=== PATIENT | female | born 1935 | race Caucasian/White ===

== ENCOUNTER 2016-12-16 19:10 | Observation (INO) | payer OTHER ==
[2016-12-16] MEDS ORDERED: Aspirin 325 mg EC Tablets PO STA (19:37)
--- NOTE | 2016-12-16 19:41 | C.PDOC ---
History Of Present Illness 81 year old female who presents to the ER with family at bedside for a complaint of epigastric pain, chest tightness, weakness, and a tight cough for the past couple of days. per femchilo, patient is having "asthma". Patient was sent to the by PMD Dr. Iverson for evaluation, EKG done in ER shows a RBBB with a rate of [address] Iverson's office same. Patient recently arrived from [place]; as per family patient has a Hx of HTN and asthma, they report patient is complaint with HTN medication. Patient reports she has been using her inhaler 3 times a days; as per family patient has never used steroids for asthma. Denies fever, chills, vomiting, or SOB. Time Seen by Provider: 12/16/16 19:28 Chief Complaint (Nursing): Chest Pain History Per: Patient History/Exam Limitations: no limitations Onset/Duration Of Symptoms: Days Current Symptoms Are (Timing): Still Present Context: Travel (Recently arrived from [place]) Associated Symptoms: denies: Nausea, Dyspnea Modifying Factors: None Exacerbating Factors: None Alleviating Factors: None Recent travel outside of the [place]: Yes Past Medical History Reviewed: Historical Data, Nursing Documentation, Vital Signs Vital Signs: Last Vital Signs Temp 97.9 F 12/16/16 19:23 Pulse 110 H 12/16/16 23:00 Resp 18 12/16/16 23:00 BP 139/64 12/16/16 23:00 Pulse Ox 97 12/16/16 23:16 - Medical History PMH: Asthma, HTN Surgical History: No Surg Hx Family History: States: Unknown Family Hx - Social History Hx Alcohol Use: No Hx Substance Use: No - Immunization History Hx Tetanus Toxoid Vaccination: No Hx Influenza Vaccination: No Hx Pneumococcal Vaccination: No Review Of Systems Constitutional: Positive for: Weakness. Negative for: Fever, Chills Respiratory: Positive for: Cough. Negative for: Shortness of Breath Gastrointestinal: Positive for: Abdominal Pain. Negative for: Vomiting Musculoskeletal: Negative for: Back Pain Physical Exam - Physical Exam Appears: Non-toxic, No Acute Distress, Other (Appears mildly SOB but speaking in complete sentences) Skin: Normal Color, Warm, Dry Head: Atraumatic, Normacephalic Oral Mucosa: Moist Chest: Symmetrical, No Tenderness Cardiovascular: Rhythm Regular, No Murmur Respiratory: Normal Breath Sounds, No Rales, No Rhonchi, No Wheezing, Other ( Tight cough) Gastrointestinal/Abdominal: Soft, Tenderness (Mildly to epigastric) Extremity: Normal ROM, Pedal Edema (+1 pitting) Neurological/Psych: Oriented x3, Normal Speech, Normal Cognition ED Course And Treatment - Laboratory Results Result Diagrams: 12/16/16 20:07 12/16/16 20:07 ECG: Interpreted By Me, Viewed By Me ECG Rhythm: Sinus Rhythm, R BBB ECG Interpretation: No Changes From Prior Interpretation Of EC O2 Sat by Pulse Oximetry: 97 Medical Decision Making Medical Decision Making: Plan: * Labs * EKG * CXR * Aspirin Differential: Asthma vs ACS/CHF Discussed with Dr. Iverson who agrees patient can be discharged home, troponin is unremarkable, he will have her follow up in his office. On re-evaluation patient feeling much better. Disposition Discussed With : Luis Iverson Doctor Will See Patient In The: Office - Disposition Referrals: Luis Iverson MD [Staff Provider] - Disposition: HOSPITALIZED Disposition Time: 23:10 Condition: GUARDED - POA Present On Arrival: None - Clinical Impression Clinical Impression: Chest pain - Scribe Statement The provider has reviewed the documentation as recorded by the Scribe Jaya Baeza All medical record entries made by the Scribe were at my direction and personally dictated by me. I have reviewed the chart and agree that the record accurately reflects my personal performance of the history, physical exam, medical decision making, and the department course for this patient. I have also personally directed, reviewed, and agree with the discharge instructions and disposition. Decision To Admit - Pt Status Changed To: Hospital Disposition Of: Observation - . Bed Request Type: Telemetry Patient Diagnosis: Chest pain
[2016-12-16 20:14] LABS: BASO # 0.1 K/uL (0.0-0.2); BASO % 0.8 % (0.0-2.0); EOS # 0.6 K/uL (0.0-0.7); EOS % 4.9 % (0.0-4.0); HEMOGLOBIN 13.9 g/dL (11.0-16.0); LYMPH # 2.7 K/uL (1.0-4.3); LYMPH % 23.7 % (20.0-40.0); MEAN CELL VOLUME 81.9 fL (81.0-99.0); MEAN CORPUSCULAR HEMOGLOBIN 26.4 pg (27.0-31.0); MEAN CORPUSCULAR HGB CONC 32.2 g/dL (33.0-37.0); MEAN PLATELET VOLUME 7.8 fL (7.2-11.7); MONO # 0.8 K/uL (0.0-0.8); MONO % 6.9 % (0.0-10.0); NEUT # 7.1 K/uL (1.8-7.0); NEUT % 63.7 % (50.0-75.0); NRBC % 0.1 % (0.0-2.0); RBC 5.25 Mil/uL (3.80-5.20); RED CELL DISTRIBUTION WIDTH 14.1 % (11.5-14.5); WHITE BLOOD COUNT 11.2 K/uL (4.8-10.8)
[2016-12-16 20:27] LABS: ALB/GLOB RATIO 0.9 (1.0-2.1); AST/SGOT 16 U/L (14-36); BLOOD UREA NITROGEN 9 mg/dL (7-17); GFR AFRICAN-AMERICAN > 60; GFR NON-AFRICAN AMERICAN > 60
[2016-12-16 20:28] LABS: ALT/SGPT 17 U/L (9-52); CALCIUM 10.2 mg/dl (8.6-10.4); HDL CHOLESTEROL 40 mg/dL (30-70)
[2016-12-16 20:39] LABS: LDL CHOLESTEROL 179 mg/dL (0-129)
[2016-12-16 20:40] LABS: B-TYPE NATRIURETIC PEPTIDE 149 pg/mL (0-900)
[2016-12-16] MEDS: Albuterol-Ipratrop 3 mg / 0.5 (3 ml) UD IH SCH (21:54)
[2016-12-16] MEDS ORDERED: Albuterol-Ipratrop 3 mg / 0.5 (3 ml) UD ONE (22:07)
--- NOTE | 2016-12-16 23:22 | CP.PCM.HP ---
<Caroline Hamilton - Last Filed: 12/17/16 05:06> History of Present Illness - History of Present Illness History of Present Illness: Medicine Note CC: chest pain HPI: 81F with PMHx of Asthma and HTN presented to the ED with chest pain. Patient was sent to the ED by PMD Dr. Iverson for evaluation, EKG done in ER shows a RBBB with a rate of [address] Iverson's office was the same. History retrieved from the patient's daughter, since the patient does not speak french. As per daughter, mother was sitting down earlier today and started to have midsternal pressure like chest pain that lasted 10 minutes. The pain did not radiate, patient was not diaphoretic, dizzy, or experience nausea. She did not take anything for the pain. This is the first time this has happened to her. Patient is visiting from [facility] and was started on BP medications 6 months ago. Denied fever, chills, headache, chest pain, abdominal pain, n/v/d/c, or urinary symptoms. PMHx: Asthma and HTN PSHx:Denied Meds: Telmisartan and HCTZ 40/12.5mg PO daily, pregablin 75mg PO daily, Albuterol HFA PRN All: NKDA SHx: Denied tobacco, alcohol, or illicit drug use FHx: Unremarkable Present on Admission - Present on Admission Any Indicators Present on Admission: No Review of Systems - Constitutional Constitutional: absent: Daytime Sleepiness, Fever, Weakness - EENT Eyes: absent: Change in Vision, Loss of Vision Ears: absent: Dizziness Nose/Mouth/Throat: absent: Dysphagia, Neck Mass - Breasts Breasts: absent: Pain - Cardiovascular Cardiovascular: absent: Chest Pain, Chest Pain at Rest, Dyspnea, Radiating Pain , Syncope - Respiratory Respiratory: absent: Cough, Dyspnea - Gastrointestinal Gastrointestinal: absent: Abdominal Pain, Nausea, Vomiting - Genitourinary Genitourinary: absent: Dysuria, Hematuria - Musculoskeletal Musculoskeletal: absent: Back Pain - Integumentary Integumentary: absent: Wounds - Neurological Neurological: absent: Syncope, Weakness - Endocrine Endocrine: absent: Polydipsia, Polyphagia, Polyuria - Hematologic/Lymphatic Hematologic: absent: Easy Bleeding, Easy Bruising Past Patient History - Past Social History Smoking Status: Never Smoked - CARDIAC Hx Hypertension: Yes - PULMONARY Hx Asthma: Yes - PSYCHIATRIC Hx Substance Use: No - SURGICAL HISTORY Hx Surgeries: No Meds Allergies/Adverse Reactions: Allergies Allergy/AdvReac Type Severity Reaction Status Date / Time No Known Allergies Allergy Verified 12/16/16 19:26 Physical Exam - Constitutional Appears: No Acute Distress - Head Exam Head Exam: NORMAL INSPECTION, NORMOCEPHALIC - Eye Exam Eye Exam: EOMI, Normal appearance, PERRL Pupil Exam: NORMAL ACCOMODATION - ENT Exam ENT Exam: Mucous Membranes Moist, Normal Exam - Neck Exam Neck exam: Positive for: Normal Inspection - Respiratory Exam Respiratory Exam: Clear to Auscultation Bilateral, NORMAL BREATHING PATTERN. absent: Wheezes - Cardiovascular Exam Cardiovascular Exam: REGULAR RHYTHM, RRR, +S1, +S2 - GI/Abdominal Exam GI & Abdominal Exam: Normal Bowel Sounds, Soft - Extremities Exam Extremities exam: Positive for: normal inspection, pedal pulses present. Negative for: pedal edema, tenderness - Back Exam Back exam: NORMAL INSPECTION - Neurological Exam Neurological exam: Alert, CN II-XII Intact, Oriented x3 - Skin Skin Exam: Dry, Intact, Normal Color, Warm Results - Vital Signs Recent Vital Signs: Last Vital Signs Temp 97.9 F 12/16/16 19:23 Pulse 110 H 12/16/16 23:00 Resp 18 12/16/16 23:00 BP 139/64 12/16/16 23:00 Pulse Ox 97 12/16/16 23:18 - Labs Result Diagrams: 12/16/16 20:07 12/16/16 20:07 Labs: Laboratory Results - last 24 hr 12/16/16 12/16/16 20:07 20:07 WBC 11.2 H RBC 5.25 H Hgb 13.9 Hct 43.0 MCV 81.9 MCH 26.4 L MCHC 32.2 L RDW 14.1 Plt Count 395 MPV 7.8 Neut % (Auto) 63.7 Lymph % (Auto) 23.7 [place] % (Auto) 6.9 Eos % (Auto) 4.9 H Baso % (Auto) 0.8 Neut # 7.1 H Lymph # 2.7 [place] # 0.8 Eos # 0.6 Baso # 0.1 Sodium 139 Potassium 3.8 Chloride 99 Carbon Dioxide 29 Anion Gap 14 BUN 9 Creatinine 0.5 L Est GFR ( Amer) > 60 Est GFR (Non-Af Amer) > 60 Random Glucose 136 H Calcium 10.2 Total Bilirubin 0.5 AST 16 ALT 17 Alkaline Phosphatase 135 H Troponin I < 0.0120 NT-Pro-B Natriuret Pep 149 Total Protein 8.2 Albumin 4.0 Globulin 4.3 H Albumin/Globulin Ratio 0.9 L Triglycerides 216 H Cholesterol 251 H LDL Cholesterol Direct 179 H HDL Cholesterol 40 Assessment & Plan - Assessment and Plan (Free Text) Assessment: 81F with PMHx of Asthma and HTN presented to the ED with chest pain. Plan: Chest Pain r/o ACS * EKG: NSR, RBBB @ 88 * 1st YANET- negative * TSH, T3 - WNL * Hgba1c - 7.7 * F/U ROMIs, EKG, ECHO * Cardiology consulted- Dr. Avel Patel - help appreciated HLD * Tri: 216, Cholesterol: 251, LDL 179, HDL 40 * Started on Crestor 5mg PO QHS DM * Hgba1c - 7.7 * Acchuchecks HTN * HCTZ 12.5mg PO Daily * HHD Hx Asthma * Duonebs PRN Prophylactic Measures * GI PPX: Protonix 40mg PO daily * DVT PPX: SCDs, lovenox 40mg SC daily DW Joy Vazquez DO, PGY-1 <Alexandro Ramirez - Last Filed: 12/17/16 06:21> Results - Vital Signs Recent Vital Signs: Last Vital Signs Temp 97.9 F 12/16/16 19:23 Pulse 99 H 12/17/16 02:35 Resp 16 12/17/16 02:35 BP 150/80 12/17/16 01:08 Pulse Ox 97 12/17/16 02:35 - Labs Result Diagrams: 12/16/16 20:07 12/16/16 20:07 Labs: Laboratory Results - last 24 hr 12/17/16 12/17/16 12/17/16 01:10 01:10 01:10 Hemoglobin A1c 7.7 H Total Creatine Kinase CK-MB (Mass) Troponin I, Quant Total T3 1.67 TSH 3rd Generation 1.54 Urine Color Straw Urine Clarity Clear Urine pH 7.0 Ur Specific [place] 1.004 Urine Protein Negative Urine Glucose (UA) Normal Urine Ketones Negative Urine Blood Negative Urine Nitrate Negative Urine Bilirubin Negative Urine Urobilinogen Normal Ur Leukocyte Esterase Neg Urine WBC (Auto) < 1 Urine RBC (Auto) < 1 Ur Squamous Epith Cells < 1 Urine Bacteria Rare 12/17/16 04:23 Hemoglobin A1c Total Creatine Kinase 29 L CK-MB (Mass) 0.40 Troponin I, Quant < 0.0120 Total T3 TSH 3rd Generation Urine Color Urine Clarity Urine pH Ur Specific [place] Urine Protein Urine Glucose (UA) Urine Ketones Urine Blood Urine Nitrate Urine Bilirubin Urine Urobilinogen Ur Leukocyte Esterase Urine WBC (Auto) Urine RBC (Auto) Ur Squamous Epith Cells Urine Bacteria Assessment & Plan - Date & Time Date: 12/17/16 (I have seen and examined the patient. I agree with the findings and plan of care as documented by Dr. Hamilton. Patient with chest pain. Hypercholesterolemia. Continue home meds. Aspirin and Statin. ROMIx3 with EKG. Cardio consult. Hemoglobin A1C elevated. Accuchecks and NISS as needed. May need dietary/nutrition consult to discuss diabetic diet. Monitor for acute changes.) Time: 06:18 Attending/Attestation - Attestation I have personally seen and examined this patient.: Yes I have fully participated in the care of the patient.: Yes I have reviewed all pertinent clinical information: Yes
[2016-12-17 01:21] LABS: SQUAMOUS EPITHIAL < 1 /hpf (0-5); URINE BACTERIA RARE (<OCC); URINE BILIRUBIN NEGATIVE (NEGATIVE); URINE BLOOD NEGATIVE (NEGATIVE); URINE CLARITY Clear (Clear); URINE COLOR Straw (YELLOW); URINE GLUCOSE (UA) NORMAL (Normal); URINE LEUKOCYTE ESTERASE NEG Leu/uL (Negative); URINE NITRATE NEGATIVE (NEGATIVE); URINE PROTEIN NEGATIVE (NEGATIVE); URINE UROBILINOGEN NORMAL mg/dL (0.2-1.0)
[2016-12-17 02:04] LABS: T3 1.67 nmol/L (1.49-2.60)
[2016-12-17] MEDS ORDERED: Albuterol-Ipratrop 3 mg / 0.5 (3 ml) UD INH PRN (05:15)
[2016-12-17 08:28] VITALS: RESP 20
[2016-12-17 08:36] LABS: BASO % 0.2 % (0.0-2.0); HEMOGLOBIN 14.2 g/dL (11.0-16.0); LYMPH # 0.8 K/uL (1.0-4.3); LYMPH % 10.1 % (20.0-40.0); MEAN CELL VOLUME 82.1 fL (81.0-99.0); MEAN CORPUSCULAR HEMOGLOBIN 26.9 pg (27.0-31.0); MEAN CORPUSCULAR HGB CONC 32.8 g/dL (33.0-37.0); MEAN PLATELET VOLUME 7.6 fL (7.2-11.7); MONO # 0.1 K/uL (0.0-0.8); NEUT # 6.9 K/uL (1.8-7.0); NEUT % 88.7 % (50.0-75.0); RBC 5.28 Mil/uL (3.80-5.20); WHITE BLOOD COUNT 7.8 K/uL (4.8-10.8)
[2016-12-17] MEDS: Pantoprazole 40 mg EC Tab PO SCH (09:11)
[2016-12-17 09:15] LABS: ALBUMIN 3.8 g/dL (3.5-5.0)
[2016-12-17 09:18] LABS: ALT/SGPT 9 U/L (9-52); AST/SGOT 23 U/L (14-36); BLOOD UREA NITROGEN 11 mg/dL (7-17); GFR AFRICAN-AMERICAN > 60; GFR NON-AFRICAN AMERICAN > 60
[2016-12-17 09:19] LABS: MAGNESIUM 2.1 mg/dL (1.6-2.3)
--- NOTE | 2016-12-17 09:41 | RAD ---
HISTORY: Chest pain. COMPARISON: No prior. TECHNIQUE: Chest PA and lateral FINDINGS: LUNGS: No active pulmonary disease. PLEURA: No significant pleural effusion identified. No pneumothorax apparent.Incidental finding(s): Biapical pleural thickening. CARDIOVASCULAR: No radiographic findings to suggest acute or significant cardiovascular disease. OSSEOUS STRUCTURES: Kyphosis related to lower thoracic vertebral body fracture likely T11. VISUALIZED UPPER ABDOMEN: Normal. OTHER FINDINGS: None. IMPRESSION: No active disease.
[2016-12-17 12:45] LABS: CK-MB 0.51 ng/mL (0.0-3.38)
--- NOTE | 2016-12-17 16:32 | CARD ---
APPROVED REPORT EXAM: Two-dimensional and M-mode echocardiogram with Doppler and color Doppler. Other Information Quality : GoodRhythm : NSR INDICATION Chest Pain RISK FACTORS Hypertension M-Mode DIMENSIONS RVDd2.39 (2.1-3.2cm)Left Atrium (MM)3.40 (2.5-4.0cm) IVSd0.76 (0.7-1.1cm)Aortic Root2.50 (2.2-3.7cm) LVDd4.55 (4.0-5.6cm)Aortic Cusp Exc.1.84 (1.5-2.0cm) PWd0.73 (0.7-1.1cm)FS (%) 60 % LVDs1.80 (2.0-3.8cm)LVEF (%)55 (>50%) Mitral Valve MV E Gqqvxjgc086.3cm/sE/A ratio0.0 TDI E/Lateral E'0.0E/Medial E'0.0 Tricuspid Valve TR Peak [id number]/sTR Peak [id number] LEFT VENTRICLE The left ventricle is normal size. There is normal left ventricular wall thickness. The left ventricular ejection fraction is within the normal range. Septal hypokinesis RIGHT VENTRICLE The right ventricle is normal size. There is normal right ventricular wall thickness. The right ventricular systolic function is normal. ATRIA The left atrium size is normal. The right atrium size is normal. AORTIC VALVE The aortic valve is not well visualized. MITRAL VALVE The mitral valve is mildly thickened. GREAT VESSELS The aortic root is normal in size. The IVC is normal in size and collapses >50% with inspiration. PERICARDIAL EFFUSION There is a trace loculated anterior pericardial effusion. <Conclusion> The left ventricle is normal size. There is normal left ventricular wall thickness. The left ventricular ejection fraction is within the normal range. Septal hypokinesis
--- NOTE | 2016-12-17 17:07 | CARD ---
APPROVED REPORT EKG Measurement Heart [id number] <Conclusion> Sinus rhythm with Blocked APCs Right bundle branch block Abnormal ECG
--- NOTE | 2016-12-17 21:03 | CP.PCM.PN ---
<ApValentino cronin Chris - Last Filed: 12/17/16 21:00> Subjective - Date & Time of Evaluation Date of Evaluation: 12/17/16 Time of Evaluation: 14:00 - Subjective Subjective: Patient was seen and examined at bedside. Patient was lying comfortably in bed with family members surrounding her. She stated that she was not having any chest pain at the moment. She said that when she has the pain it's at the xyphoid process and that it's a squeezing pain. She denied fever, palpitations, shortness of breath, cough, vomiting, diarrhea. Objective - Vital Signs/Intake and Output Vital Signs (last 24 hours): Temp Pulse Resp BP Pulse Ox 97.9 F 99 H 20 149/77 97 12/17/16 17:48 12/17/16 17:48 12/17/16 17:48 12/17/16 17:48 12/17/16 17:48 Intake and Output: 12/17/16 12/18/16 18:59 06:59 Intake Total 300 Balance 300 - Medications Medications: Current Medications Albuterol/Ipratropium (Duoneb 3 Mg/0.5 Mg (3 Ml) Ud) 3 ml INH RQ6 PRN PRN Reason: Wheezing Aspirin (Aspirin Chewable) 81 mg PO DAILY [facility] Last Admin: 12/17/16 09:11 Dose: 81 mg Heparin Sodium (Porcine) (Heparin) 5,000 units SC Q8 [facility] Last Admin: 12/17/16 13:18 Dose: 5,000 units Hydrochlorothiazide (Microzide) 12.5 mg PO DAILY [facility] Last Admin: 12/17/16 09:11 Dose: 12.5 mg Metformin HCl (Glucophage) 500 mg PO BID [facility] Last Admin: 12/17/16 17:46 Dose: 500 mg Pantoprazole Sodium (Protonix Ec Tab) 40 mg PO DAILY [facility] Last Admin: 12/17/16 09:11 Dose: 40 mg Pregabalin (Lyrica) 75 mg PO DAILY [facility] Last Admin: 12/17/16 09:11 Dose: 75 mg Rosuvastatin Calcium (Crestor) 10 mg PO HS [facility] - Labs Labs: 12/17/16 08:32 12/17/16 08:32 - Constitutional Appears: Well - Head Exam Head Exam: ATRAUMATIC, NORMAL INSPECTION, NORMOCEPHALIC - Eye Exam Eye Exam: EOMI, Normal appearance, PERRL Pupil Exam: NORMAL ACCOMODATION, PERRL - ENT Exam ENT Exam: Mucous Membranes Moist, Normal Exam - Neck Exam Neck Exam: Full ROM, Normal Inspection. absent: Lymphadenopathy - Respiratory Exam Respiratory Exam: Clear to Ausculation Bilateral, NORMAL BREATHING PATTERN - Cardiovascular Exam Cardiovascular Exam: Tachycardia, REGULAR RHYTHM - GI/Abdominal Exam GI & Abdominal Exam: Soft, Normal Bowel Sounds. absent: Tenderness - Rectal Exam Rectal Exam: Deferred - Extremities Exam Extremities Exam: Pedal Edema - Neurological Exam Neurological Exam: Alert, Awake, Oriented x3 - Psychiatric Exam Psychiatric exam: Normal Affect, Normal Mood - Skin Skin Exam: Dry, Intact, Normal Color, Warm Assessment and Plan - Assessment and Plan (Free Text) Assessment: 81F with PMHx of Asthma and HTN presented to the ED with chest pain. Plan: Chest Pain r/o ACS 12/17: ROMIs x3 negative 12/17: EKG today showed waveforms characteristic of RBBB @ 98 bpm 12/17: ECHO: Septal hypokinesis; there are no other abnormalities, EF is WNL * EKG: NSR, RBBB @ 88 * 1st YANET- negative * TSH, T3 - WNL * Hgba1c - 7.7 * F/U ROMIs, EKG, ECHO * Cardiology consulted- Dr. Avel Patel - help appreciated HLD * Tri: 216, Cholesterol: 251, LDL 179, HDL 40 * Started on Crestor 5mg PO QHS DM 12/17: metformin 500mg BID po started today * Hgba1c - 7.7 * Acchuchecks HTN * HCTZ 12.5mg PO Daily * HHD Hx Asthma * Duonebs PRN Prophylactic Measures * GI PPX: Protonix 40mg PO daily * DVT PPX: SCDs, lovenox 40mg SC daily * pregabalin 75mg po daily * duoneb q6 prn <Cyndi Mendes V - Last Filed: 12/21/16 16:53> Objective - Vital Signs/Intake and Output Vital Signs (last 24 hours): Temp Pulse Resp BP Pulse Ox 97.3 F L 86 20 183/97 H 95 12/18/16 16:13 12/18/16 16:25 12/18/16 16:13 12/18/16 16:25 12/18/16 16:25 - Labs Labs: 12/18/16 07:53 12/18/16 07:53 Attending/Attestation - Attestation I have personally seen and examined this patient.: Yes I have fully participated in the care of the patient.: Yes I have reviewed all pertinent clinical information, including history, physical exam and plan: Yes Notes (Text): This is late computer entry for 12/17/16. Patient seen, examined, and case discussed with day-time resident. Patient seen at bedside with at least 4-5 family members. Translation per [place]-speaking Family Corporate Statistical Financial Analyst, Dr. Valentino De Souza. Patient completed echocardiogram today, discussed with Dr. Donald Patel, cardiology on-consult will review the echo tomorrow. Patient has negative YANET X3 and abnormal EKG: RBBB in all 3 ekgs. Patient is also a newly diagnosed diabetic. Patient started on Metformin 500mg PO bid.
[2016-12-18 08:02] LABS: BASO # 0.1 K/uL (0.0-0.2); BASO % 0.8 % (0.0-2.0); EOS # 0.5 K/uL (0.0-0.7); EOS % 4.8 % (0.0-4.0); HEMOGLOBIN 12.9 g/dL (11.0-16.0); LYMPH # 3.2 K/uL (1.0-4.3); LYMPH % 33.1 % (20.0-40.0); MEAN CELL VOLUME 82.2 fL (81.0-99.0); MEAN CORPUSCULAR HEMOGLOBIN 26.4 pg (27.0-31.0); MEAN CORPUSCULAR HGB CONC 32.1 g/dL (33.0-37.0); MEAN PLATELET VOLUME 7.5 fL (7.2-11.7); MONO # 0.7 K/uL (0.0-0.8); MONO % 7.2 % (0.0-10.0); NEUT # 5.3 K/uL (1.8-7.0); NEUT % 54.1 % (50.0-75.0); RBC 4.91 Mil/uL (3.80-5.20); WHITE BLOOD COUNT 9.7 K/uL (4.8-10.8)
[2016-12-18 08:18] LABS: ALBUMIN 3.3 g/dL (3.5-5.0)
[2016-12-18 08:21] LABS: ALB/GLOB RATIO 0.9 (1.0-2.1); AST/SGOT 14 U/L (14-36); GFR AFRICAN-AMERICAN > 60; GFR NON-AFRICAN AMERICAN > 60
[2016-12-18 08:22] LABS: ALT/SGPT 13 U/L (9-52); BLOOD UREA NITROGEN 12 mg/dL (7-17); CALCIUM 9.5 mg/dl (8.6-10.4); MAGNESIUM 1.9 mg/dL (1.6-2.3)
[2016-12-18] MEDS ORDERED: Potassium Chloride 20 mEq ER Tab PO ONE (08:30)
[2016-12-18] MEDS: Pantoprazole 40 mg EC Tab PO SCH (09:51)
[2016-12-18] MEDS ORDERED: Albuterol-Ipratrop 3 mg / 0.5 (3 ml) UD INH STA (15:10)
--- NOTE | 2016-12-18 15:32 | CP.PCM.DIS ---
<Aramis Austin - Last Filed: 12/18/16 15:27> Provider - Provider Date of Admission: 12/16/16 23:16 Attending physician: Dr. Cyndi Mendes Primary care physician: Dr. Iverson Consults: Cardiology: Dr. Donald Patel Time Spent in preparation of Discharge (in minutes): 45 Diagnosis - Discharge Diagnosis (1) Chest pain Status: Acute Comment: ROMIs negative x 3. EKG - RBBB. Echo- normal EF< normal LV wall. Septal wall hypokinesis Hospital Course - Lab Results Lab Results: Most Recent Lab Values WBC 9.7 K/uL (4.8-10.8) 12/18/16 07:53 RBC 4.91 Mil/uL (3.80-5.20) 12/18/16 07:53 Hgb 12.9 g/dL (11.0-16.0) 12/18/16 07:53 Hct 40.3 % (34.0-47.0) 12/18/16 07:53 MCV 82.2 fL (81.0-99.0) 12/18/16 07:53 MCH 26.4 pg (27.0-31.0) L 12/18/16 07:53 MCHC 32.1 g/dL (33.0-37.0) L 12/18/16 07:53 RDW 14.0 % (11.5-14.5) 12/18/16 07:53 Plt Count 343 K/uL (130-400) 12/18/16 07:53 MPV 7.5 fL (7.2-11.7) 12/18/16 07:53 Neut % (Auto) 54.1 % (50.0-75.0) 12/18/16 07:53 Lymph % (Auto) 33.1 % (20.0-40.0) 12/18/16 07:53 [place] % (Auto) 7.2 % (0.0-10.0) 12/18/16 07:53 Eos % (Auto) 4.8 % (0.0-4.0) H 12/18/16 07:53 Baso % (Auto) 0.8 % (0.0-2.0) 12/18/16 07:53 Neut # 5.3 K/uL (1.8-7.0) 12/18/16 07:53 Lymph # 3.2 K/uL (1.0-4.3) 12/18/16 07:53 [place] # 0.7 K/uL (0.0-0.8) 12/18/16 07:53 Eos # 0.5 K/uL (0.0-0.7) 12/18/16 07:53 Baso # 0.1 K/uL (0.0-0.2) 12/18/16 07:53 Sodium 135 mmol/L (132-148) 12/18/16 07:53 Potassium 3.5 mmol/L (3.6-5.2) L 12/18/16 07:53 Chloride 98 mmol/L (98-107) 12/18/16 07:53 Carbon Dioxide 28 mmol/L (22-30) 12/18/16 07:53 Anion Gap 12 (10-20) 12/18/16 07:53 BUN 12 mg/dL (7-17) 12/18/16 07:53 Creatinine 0.5 MG/DL (0.7-1.2) L 12/18/16 07:53 Est GFR ( Amer) > 60 12/18/16 07:53 Est GFR (Non-Af Amer) > 60 12/18/16 07:53 POC Glucose (mg/dL) 193 mg/dL (65-110) H 12/18/16 11:35 Random Glucose 166 mg/dL (65-105) H 12/18/16 07:53 Hemoglobin A1c 7.7 % (4.2-6.5) H 12/17/16 01:10 Calcium 9.5 mg/dl (8.6-10.4) 12/18/16 07:53 Phosphorus 3.5 mg/dL (2.5-4.5) 12/18/16 07:53 Magnesium 1.9 mg/dL (1.6-2.3) 12/18/16 07:53 Total Bilirubin 0.5 mg/dL (0.2-1.3) 12/18/16 07:53 AST 14 U/L (14-36) D 12/18/16 07:53 ALT 13 U/L (9-52) 12/18/16 07:53 Alkaline Phosphatase 105 U/L (38-126) 12/18/16 07:53 Total Creatine Kinase 33 U/L (30-135) 12/17/16 12:20 CK-MB (Mass) 0.51 ng/mL (0.0-3.38) 12/17/16 12:20 Troponin I < 0.0120 ng/mL (0.00-0.120) 12/16/16 20:07 Troponin I, Quant < 0.0120 ng/mL (0.00-0.120) 12/17/16 12:20 NT-Pro-B Natriuret Pep 149 pg/mL (0-900) 12/16/16 20:07 Total Protein 6.9 g/dL (6.3-8.3) 12/18/16 07:53 Albumin 3.3 g/dL (3.5-5.0) L 12/18/16 07:53 Globulin 3.6 gm/dL (2.2-3.9) 12/18/16 07:53 Albumin/Globulin Ratio 0.9 (1.0-2.1) L 12/18/16 07:53 Triglycerides 216 mg/dL (0-149) H 12/16/16 20:07 Cholesterol 251 mg/dL (0-199) H 12/16/16 20:07 LDL Cholesterol Direct 179 mg/dL (0-129) H 12/16/16 20:07 HDL Cholesterol 40 mg/dL (30-70) 12/16/16 20:07 Total T3 1.67 nmol/L (1.49-2.60) 12/17/16 01:10 TSH 3rd Generation 1.54 mIU/L (0.46-4.68) 12/17/16 01:10 Urine Color Straw (YELLOW) 12/17/16 01:10 Urine Clarity Clear (Clear) 12/17/16 01:10 Urine pH 7.0 (5.0-8.0) 12/17/16 01:10 Ur Specific Rock 1.004 (1.003-1.030) 12/17/16 01:10 Urine Protein Negative mg/dL (NEGATIVE) 12/17/16 01:10 Urine Glucose (UA) Normal mg/dL (Normal) 12/17/16 01:10 Urine Ketones Negative mg/dL (NEGATIVE) 12/17/16 01:10 Urine Blood Negative (NEGATIVE) 12/17/16 01:10 Urine Nitrate Negative (NEGATIVE) 12/17/16 01:10 Urine Bilirubin Negative (NEGATIVE) 12/17/16 01:10 Urine Urobilinogen Normal mg/dL (0.2-1.0) 12/17/16 01:10 Ur Leukocyte Esterase Neg Mikel/uL (Negative) 12/17/16 01:10 Urine WBC (Auto) < 1 /hpf (0-5) 12/17/16 01:10 Urine RBC (Auto) < 1 /hpf (0-3) 12/17/16 01:10 Ur Squamous Epith Cells < 1 /hpf (0-5) 12/17/16 01:10 Urine Bacteria Rare (<OCC) 12/17/16 01:10 - Hospital Course Hospital Course: As per admission documentation: 81F with PMHx of Asthma and HTN presented to the ED with chest pain. Patient was sent to the ED by PMD Dr. Iverson for evaluation, EKG done in ER shows a RBBB with a rate of [address] Iverson's office was the same. History retrieved from the patient's daughter, since the patient does not speak albanian. As per daughter, mother was sitting down earlier today and started to have midsternal pressure like chest pain that lasted 10 minutes. The pain did not radiate, patient was not diaphoretic, dizzy, or experience nausea. She did not take anything for the pain. This is the first time this has happened to her. Patient is visiting from [place] and was started on BP medications 6 months ago. Denied fever, chills, headache, chest pain, abdominal pain, n/v/d/c, or urinary symptoms. Patient was admitted to the hospital for observation for chest pain, rule out ACS. Patient was found to have RBBB on EKG persistently. ROMIs returned negative , and TSH was normal. Patient's HgbA1C was 7.7, she was started on Metformin 500mg PO BID. Patient was evaluated by cardiology, who cleared her to go home after reviewing her echo, which showed normal EF with a septal wall hypokinesis. She was instructed to followup with Dr. Iverson and have a outpatient cardiology evaluation upon discharge. Discharge medications: Simvastatin 40mg PO Daily Albuterol inhaler Q6h PRN Asa 81mg PO Daily HCTZ 12.5mg PO Daily Metformin 500mg PO BID Metoprolol Tartrate 25mg PO Q12h Discharge Exam - Head Exam Head Exam: ATRAUMATIC, NORMAL INSPECTION, NORMOCEPHALIC - Eye Exam Pupil Exam: NORMAL ACCOMODATION, PERRL - ENT Exam ENT Exam: Mucous Membranes Moist - Respiratory Exam Respiratory Exam: Clear to PA & Lateral, NORMAL BREATHING PATTERN, UNREMARKABLE. absent: Rales, Rhonchi - Cardiovascular Exam Cardiovascular Exam: REGULAR RHYTHM, +S1, +S2 - GI/Abdominal Exam GI & Abdominal Exam: Normal Bowel Sounds, Soft, Unremarkable. absent: Distended , Firm, Tenderness - Extremities Exam Extremities exam: normal capillary refill, pedal pulses present - Neurological Exam Neurological exam: Alert, CN II-XII Intact, Oriented x3 - Psychiatric Exam Psychiatric exam: Normal Affect, Normal Mood - Skin Skin Exam: Dry, Intact, Normal Color, Warm Discharge Plan - Discharge Medications Prescriptions: RX: Albuterol HFA [Ventolin HFA 90 mcg/actuation (8 g)] 1 puff IH Q6H PRN #1 inhaler PRN Reason: Wheezing RX: Aspirin [Aspirin Chewable] 81 mg PO DAILY #30 RX: hydroCHLOROthiazide [Microzide] 12.5 mg PO DAILY #30 cap Losartan [Cozaar] 25 mg PO DAILY #30 tab RX: metFORMIN [glucOPHAGE] 500 mg PO BID #60 tab RX: Metoprolol Tartrate [Lopressor] 25 mg PO Q12 #60 tab RX: Simvastatin 40 mg PO HS #30 tablet - Follow Up Plan Condition: FAIR Disposition: HOME/ ROUTINE Instructions: Metoprolol (By mouth), Hydrochlorothiazide (By mouth), Aspirin ( By mouth), Simvastatin (By mouth), Losartan (By mouth), Metformin (By mouth), Chest Pain (DC), Heart Healthy Diet (DC), Diabetes Mellitus Type 2 in Adults (DC ), Meal Planning with Diabetes Exchanges (DC) Additional Instructions: Please discharge patient home, as per Dr. Mendes. Patient is to continue to taking medications as listed in the discharge medication list. Patient is to followup with her PMD, Dr. Iverson, within 1 week. Patient will need to followup with a youth services specialist for additional cardiac workup. If symptoms worsen, patient is to return to the hospital for further evaluation and treatment. Instructions were explained to the patient with [employer] ab initio etl developer. Patient understands and agrees to the plan. Discharge medications: Simvastatin 40mg PO Daily Albuterol inhaler Q6h PRN Asa 81mg PO Daily HCTZ 12.5mg PO Daily Metformin 500mg PO BID Metoprolol Tartrate 25mg PO Q12h Referrals: Luis Iverson MD [Staff Provider] - <CinthyaCyndi Mary - Last Filed: 12/21/16 17:11> Provider - Provider Date of Admission: 12/16/16 23:16 Attending physician: Alexandro Ramirez MD Hospital Course - Lab Results Lab Results: Most Recent Lab Values WBC 9.7 K/uL (4.8-10.8) 12/18/16 07:53 RBC 4.91 Mil/uL (3.80-5.20) 12/18/16 07:53 Hgb 12.9 g/dL (11.0-16.0) 12/18/16 07:53 Hct 40.3 % (34.0-47.0) 12/18/16 07:53 MCV 82.2 fL (81.0-99.0) 12/18/16 07:53 MCH 26.4 pg (27.0-31.0) L 12/18/16 07:53 MCHC 32.1 g/dL (33.0-37.0) L 12/18/16 07:53 RDW 14.0 % (11.5-14.5) 12/18/16 07:53 Plt Count 343 K/uL (130-400) 12/18/16 07:53 MPV 7.5 fL (7.2-11.7) 12/18/16 07:53 Neut % (Auto) 54.1 % (50.0-75.0) 12/18/16 07:53 Lymph % (Auto) 33.1 % (20.0-40.0) 12/18/16 07:53 [place] % (Auto) 7.2 % (0.0-10.0) 12/18/16 07:53 Eos % (Auto) 4.8 % (0.0-4.0) H 12/18/16 07:53 Baso % (Auto) 0.8 % (0.0-2.0) 12/18/16 07:53 Neut # 5.3 K/uL (1.8-7.0) 12/18/16 07:53 Lymph # 3.2 K/uL (1.0-4.3) 12/18/16 07:53 [place] # 0.7 K/uL (0.0-0.8) 12/18/16 07:53 Eos # 0.5 K/uL (0.0-0.7) 12/18/16 07:53 Baso # 0.1 K/uL (0.0-0.2) 12/18/16 07:53 Sodium 135 mmol/L (132-148) 12/18/16 07:53 Potassium 3.5 mmol/L (3.6-5.2) L 12/18/16 07:53 Chloride 98 mmol/L (98-107) 12/18/16 07:53 Carbon Dioxide 28 mmol/L (22-30) 12/18/16 07:53 Anion Gap 12 (10-20) 12/18/16 07:53 BUN 12 mg/dL (7-17) 12/18/16 07:53 Creatinine 0.5 MG/DL (0.7-1.2) L 12/18/16 07:53 Est GFR ( Amer) > 60 12/18/16 07:53 Est GFR (Non-Af Amer) > 60 12/18/16 07:53 POC Glucose (mg/dL) 180 mg/dL (65-110) H 12/18/16 17:01 Random Glucose 166 mg/dL (65-105) H 12/18/16 07:53 Hemoglobin A1c 7.7 % (4.2-6.5) H 12/17/16 01:10 Calcium 9.5 mg/dl (8.6-10.4) 12/18/16 07:53 Phosphorus 3.5 mg/dL (2.5-4.5) 12/18/16 07:53 Magnesium 1.9 mg/dL (1.6-2.3) 12/18/16 07:53 Total Bilirubin 0.5 mg/dL (0.2-1.3) 12/18/16 07:53 AST 14 U/L (14-36) D 12/18/16 07:53 ALT 13 U/L (9-52) 12/18/16 07:53 Alkaline Phosphatase 105 U/L (38-126) 12/18/16 07:53 Total Creatine Kinase 33 U/L (30-135) 12/17/16 12:20 CK-MB (Mass) 0.51 ng/mL (0.0-3.38) 12/17/16 12:20 Troponin I < 0.0120 ng/mL (0.00-0.120) 12/16/16 20:07 Troponin I, Quant < 0.0120 ng/mL (0.00-0.120) 12/17/16 12:20 NT-Pro-B Natriuret Pep 149 pg/mL (0-900) 12/16/16 20:07 Total Protein 6.9 g/dL (6.3-8.3) 12/18/16 07:53 Albumin 3.3 g/dL (3.5-5.0) L 12/18/16 07:53 Globulin 3.6 gm/dL (2.2-3.9) 12/18/16 07:53 Albumin/Globulin Ratio 0.9 (1.0-2.1) L 12/18/16 07:53 Triglycerides 216 mg/dL (0-149) H 12/16/16 20:07 Cholesterol 251 mg/dL (0-199) H 12/16/16 20:07 LDL Cholesterol Direct 179 mg/dL (0-129) H 12/16/16 20:07 HDL Cholesterol 40 mg/dL (30-70) 12/16/16 20:07 Total T3 1.67 nmol/L (1.49-2.60) 12/17/16 01:10 TSH 3rd Generation 1.54 mIU/L (0.46-4.68) 12/17/16 01:10 Urine Color Straw (YELLOW) 12/17/16 01:10 Urine Clarity Clear (Clear) 12/17/16 01:10 Urine pH 7.0 (5.0-8.0) 12/17/16 01:10 Ur Specific [place] 1.004 (1.003-1.030) 12/17/16 01:10 Urine Protein Negative mg/dL (NEGATIVE) 12/17/16 01:10 Urine Glucose (UA) Normal mg/dL (Normal) 12/17/16 01:10 Urine Ketones Negative mg/dL (NEGATIVE) 12/17/16 01:10 Urine Blood Negative (NEGATIVE) 12/17/16 01:10 Urine Nitrate Negative (NEGATIVE) 12/17/16 01:10 Urine Bilirubin Negative (NEGATIVE) 12/17/16 01:10 Urine Urobilinogen Normal mg/dL (0.2-1.0) 12/17/16 01:10 Ur Leukocyte Esterase Neg Mikel/uL (Negative) 12/17/16 01:10 Urine WBC (Auto) < 1 /hpf (0-5) 12/17/16 01:10 Urine RBC (Auto) < 1 /hpf (0-3) 12/17/16 01:10 Ur Squamous Epith Cells < 1 /hpf (0-5) 12/17/16 01:10 Urine Bacteria Rare (<OCC) 12/17/16 01:10 Attending/Attestation - Attestation I have personally seen and examined this patient.: Yes I have fully participated in the care of the patient.: Yes I have reviewed all pertinent clinical information, including history, physical exam and plan: Yes Notes (Text): This is late computer entry for 12/18/16. Patient seen, examined, and case discussed with day-time resident. Translation, Roge Smith #[id number] providing translation in [place] Francisco with patient and family at bedside. Patient denies acute complaints. Patient has mild wheezing at bedside. Patient order for stat Albuterol nebulizer treatment. Discussed with patient and family at bedside, regarding echocardiogram and recommendation by cardiology that patient is stable to go home. Discussed with patient and family, that there is a [facility] downstairs in the Hospital, where there in addition to general practitioner and image consultant services including cardiology. Patient recommended to keep a blood pressure diary and record so to adjust blood pressure medications in the future. Patient recommended diet modifications especially in light of diabetes diagnoses. Discussed with Dr. Iverson, patient's primary care doctor, who also spoke with the family following my conversation and would like the family to follow-up with him. New Medications on Discharge: 1) Simvastatin 40mg PO qHS (#30/no refills) 2)Albuterol inhaler 1 puff Q6h PRN wheezing) 3) Aspirin 81mg PO Daily 4) HCTZ 12.5mg PO Daily (#30 pills/no refills) 5) Metformin 500mg PO BID (#60 pills/no refills) 6)Metoprolol Tartrate 25mg PO [id number] (#60 pills/no refills) 7)Losartan 25mg PO daily (#30/no refills) This is a summary of patient's hospitalization. Please see EMR for further details.
[2016-12-18 16:16] VITALS: TEMP 97.3
[2016-12-18 16:47] VITALS: BP 183/97; PULSE 86; O2SAT 95
--- NOTE | 2016-12-20 13:36 | CARD ---
APPROVED REPORT EKG Measurement Heart [id number] <Conclusion> Sinus tachycardia Right bundle branch block Abnormal ECG
--- NOTE | 2016-12-25 07:00 | CARD ---
APPROVED REPORT EKG Measurement Heart [id number] <Conclusion> Sinus tachycardia Right bundle branch block Abnormal ECG
== END 2016-12-18 18:49 | disposition home or self-care (01) ==
LOC: C.ER 19:10 → C.9E 23:16 → C.6T 12-17 02:24
PROVIDERS: ADMIT Family Medicine; ATTEND Family Medicine
DX: R07.9 Chest pain, unspecified (principal); I10 Essential (primary) hypertension; I45.10 Unspecified right bundle-branch block; J45.909 Unspecified asthma, uncomplicated
CPT/HCPCS: 36415; 71020; 80053; 80061; 81001; 82948; 83036; 83735; 83880; 84100; 84443; 84480; 84484; 85025; 93005; 93306; 94640; 97116; 97162; 99285; G0378; G8978; G8979; J1644

== ENCOUNTER 2018-05-25 11:38 | Inpatient (IN) | payer SELFPAY ==
[2018-05-25 11:46] VITALS: BMI 22.3
[2018-05-25 12:00] LABS: BASO # 0.1 K/uL (0.0-0.2); BASO % 0.7 % (0.0-2.0); EOS # 0.2 K/uL (0.0-0.7); EOS % 1.8 % (0.0-4.0); HEMOGLOBIN 13.9 g/dL (11.0-16.0); LYMPH # 1.5 K/uL (1.0-4.3); LYMPH % 13.2 % (20.0-40.0); MEAN CELL VOLUME 84.9 fL (81.0-99.0); MEAN CORPUSCULAR HEMOGLOBIN 28.9 pg (27.0-31.0); MEAN PLATELET VOLUME 7.3 fL (7.2-11.7); MONO # 0.8 K/uL (0.0-0.8); MONO % 6.9 % (0.0-10.0); NEUT % 77.4 % (50.0-75.0); NRBC % 0.2 % (0.0-2.0); RBC 4.81 Mil/uL (3.80-5.20); WHITE BLOOD COUNT 11.6 K/uL (4.8-10.8)
[2018-05-25 12:07] LABS: INR 1.1; PROTHROMBIN TIME 11.6 SECONDS (9.7-12.2)
[2018-05-25 12:14] LABS: ALB/GLOB RATIO 1.2 (1.0-2.1); ALBUMIN 4.2 g/dL (3.5-5.0); ALT/SGPT 23 U/L (9-52); AST/SGOT 26 U/L (14-36); BLOOD UREA NITROGEN 8 mg/dL (7-17); CALCIUM 10.1 mg/dl (8.6-10.4); GFR NON-AFRICAN AMERICAN > 60; HDL CHOLESTEROL 47 mg/dL (30-70)
[2018-05-25] MEDS ORDERED: Iodixanol 320 mg/ml 150 ml Bottle IV ONE (12:14)
--- NOTE | 2018-05-25 12:18 | C.PDOC ---
History Of Present Illness 81 y/o female brought in by ambulance for evaluation of possible stroke. As per grandson patient awoke and was at baseline this morning. Around 10:00am he found her on the toilet, slumped to the side with slurred speech. Patient also complained of chest pain at that time. Upon arrival patient still complains of chest pain and has slurred speech. She is uncooperative with answering questions, only verbalizing my chest hurts. She voices no other complaints. No apparent focal weakness or facial droop. Time Seen by Provider: 05/25/18 12:04 Chief Complaint (Nursing): Weakness/Neurological Deficit History Per: Patient History/Exam Limitations: other (uncooperative) Onset/Duration Of Symptoms: Hrs Current Symptoms Are (Timing): Still Present Additional History Per: Family Past Medical History Reviewed: Historical Data, Nursing Documentation, Vital Signs Vital Signs: Last Vital Signs Temp 98.3 F 05/25/18 11:41 Pulse 117 H 05/25/18 11:41 Resp 20 05/25/18 11:41 BP 153/81 H 05/25/18 11:41 Pulse Ox 97 05/25/18 11:41 - Medical History PMH: Asthma, Diabetes, HTN, Hyperlipidemia Denies: Chronic Kidney Disease Family History: States: Unknown Family Hx - Social History Hx Alcohol Use: No Hx Substance Use: No - Immunization History Hx Tetanus Toxoid Vaccination: No Hx Influenza Vaccination: No Hx Pneumococcal Vaccination: No Review Of Systems Review Of Systems: ROS cannot be obtained secondary to pt's inabilty to answer questions. Physical Exam - Physical Exam Appears: Non-toxic, No Acute Distress Skin: Warm, Dry Head: Atraumatic, Normacephalic Eye(s): bilateral: Normal Inspection, PERRL, EOMI Oral Mucosa: Moist Neck: Normal ROM Chest: Symmetrical, No Tenderness Cardiovascular: Rhythm Regular, No Murmur Respiratory: Normal Breath Sounds, No Accessory Muscle Use Gastrointestinal/Abdominal: Soft, No Tenderness, No Distention Extremity: Bilateral: Atraumatic, Normal Color And Temperature, Normal ROM (Moving all extremities with no focal weakness) Pulses: Left Dorsalis Pedis: Normal, Right Dorsalis Pedis: Normal Neurological/Psych: Other (Awake and alert, (+) slurred speech, combative and uncooperative, not following commands, not answering all questions) Other Neurological Findings: No Facial Palsy Extremity: Right: No Drift, Left: No Drift ED Course And Treatment - Laboratory Results Result Diagrams: 05/26/18 05:56 05/26/18 05:56 ECG: Interpreted By Me, Viewed By Me (obtained @11:45) ECG Rhythm: Sinus Tachycardia Interpretation Of ECG: Left axis deviation, L BBB, no concordant ST changes Rate From EC O2 Sat by Pulse Oximetry: 97 (RA) Pulse Ox Interpretation: Normal - CT Scan/US CT head w/o contrast Other Rad Studies (CT/US): Read By Radiologist, Radiology Report Reviewed CT/US Interpretation: IMPRESSION: No acute intracranial hemorrhage. Chronic microvascular ischemic change. 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 Intracranial arterial calcifications. Mucosal thickening and hypertrophy of the bilateral maxillary sinuses and ethmoid air cells. 2.2 centimeter mucosal retention cyst and or polyp in the left maxillary sinus. If symptoms persists, consider correlation with MRI. These findings were relayed to Dr Mojica at 12:08 p.m. 05/25/2018. CTA head/neck Other Rad Studies (CT/US): Read By Radiologist, Radiology Report Reviewed CT/US Interpretation: IMPRESSION: Mild partially calcified atherosclerotic plaque changes seen both carotid bifurcations and proximal internal carotid arteries with no evidence of occlusion significant stenosis or dissection. Mild calcified plaque changes also noted both cavernous carotid arteries and distal vertebral arteries (intradural segments). The intra cerebral vasculature is unremarkable. No evidence of large aneurysm nor vascular malformation. Hyperdense nodules right lobe thyroid gland with few tiny calcifications. Recommend follow-up thyroid ultrasound. Critical Care Time - Critical Care Note Total Time (in mins): 45 Documented critical care: time excludes all time spent performing seperately billable procedures. NIHSS Stroke Scale - Date/Time Evaluation Performed Date Performed: 05/25/18 Time Performed: 11:45 - How Severe is the Stoke Level of Consciousness: 0=Alert LOC to Questions: 0=Both comments correct LOC to commands: 0=Obeys both correctly Best Gaze: 0=Normal Visual: 0=No visual loss Facial: 0=Normal Motor Arm - Left: 0=No drift Motor Arm - Right: 0=No drift Motor Leg - Left: 0=No drift Motor Leg - Right: 0=No drift Limb Ataxia: 0=Absent Sensory: 0=Normal Best Language: 1=Mild to moderate aphasia Dysarthia: 1=Mild to moderate slurring Extinction & Inattention (Neglect): 0=Normal, no object Score: 2 Medical Decision Making Medical Decision Makin:50 Patient seen and evaluated immediately. Code Stroke activated, orders placed. Given presence of both cardiac and neuro symptoms, ordered CTA of the head/neck and dissection study to evaluate for aortic dissection. Spoke to Dr. Maldonado, who recommended consulting radiologist Dr. Varela regarding CTA. Dr. Varela spoke to radiology nurse and approved for extra IV contrast to enable CTA and dissection study. 12:[address] Maldonado, CT Head negative for large infarct or intracranial hemorrhage. Spoke to Dr. Rachel regarding case, does not recommend TPA at this time. Neuro resident, Dr. Foy, at bedside. Patient given Aspirin. Heparin bolus and drip initiated. Case discussed with Dr. Stephens, who recommended trending patients trop. No Code Heart initiated. Still pending dissection study results. Spoke to Dr. Self, accepts pt to ICU Spoke to Dr. Iverson, pt will be admitted to his service. Disposition - Disposition Disposition: HOSPITALIZED Disposition Time: 14:00 Condition: FAIR - POA Core Measure Indicators: Chest Pain, Code Stroke - Clinical Impression Clinical Impression: CVA (cerebral vascular accident), NSTEMI (non-ST elevated myocardial infarction) - Scribe Statement The provider has reviewed the documentation as recorded by the Delvin Clemons Provider Attestation: All medical record entries made by the Dovibstewart were at my direction and personally dictated by me. I have reviewed the chart and agree that the record accurately reflects my personal performance of the history, physical exam, medical decision making, and the department course for this patient. I have also personally directed, reviewed, and agree with the discharge instructions and disposition.
--- NOTE | 2018-05-25 12:19 | CT ---
Date of service: 05/25/2018 PROCEDURE: CT HEAD WITHOUT CONTRAST. HISTORY: Code Stroke COMPARISON: None available. TECHNIQUE: Axial computed tomography images were obtained through the head/brain without intravenous contrast. Radiation dose: Total exam DLP = 2085.72 mGy-cm. This CT exam was performed using one or more of the following dose reduction techniques: Automated exposure control, adjustment of the mA and/or kV according to patient size, and/or use of iterative reconstruction technique. FINDINGS: HEMORRHAGE: No intracranial hemorrhage. BRAIN: No mass effect or edema. Scattered focal lucencies in the subcortical and periventricular white matter suggestive for chronic microvascular ischemic change. Right caudate head lacunar infarct. Bilateral basal ganglia lacunar infarcts. VENTRICLES: Unremarkable. No hydrocephalus. CALVARIUM: Unremarkable. PARANASAL SINUSES: Mucosal thickening and hypertrophy of the bilateral maxillary sinuses and ethmoid air cells. 2.2 centimeter mucosal retention cyst and or polyp in the left maxillary sinus. MASTOID AIR CELLS: Unremarkable as visualized. No inflammatory changes. OTHER FINDINGS: Intracranial arterial calcifications. Left orbital ring/prosthesis noted. IMPRESSION: No acute intracranial hemorrhage. Chronic microvascular ischemic change. 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 Intracranial arterial calcifications. Mucosal thickening and hypertrophy of the bilateral maxillary sinuses and ethmoid air cells. 2.2 centimeter mucosal retention cyst and or polyp in the left maxillary sinus. If symptoms persists, consider correlation with MRI. These findings were relayed to Dr Mojica at 12:08 p.m. 05/25/2018.
[2018-05-25 12:24] LABS: LDL CHOLESTEROL 74 mg/dL (0-129)
[2018-05-25] MEDS ORDERED: Iodixanol 320 MG/ML 100 ML BOTTLE IV ONE (12:33)
--- NOTE | 2018-05-25 12:55 | CT ---
Date of service: 05/25/2018 PROCEDURE: CT Angiography of the neck and brain with contrast HISTORY: code stroke COMPARISON: None. TECHNIQUE: Contiguous axial images of the neck and brain were obtained from the level of the vertex of the skull to the superior mediastinum in the arteriographic phase of enhancement. Coronal and sagittal reformats or also generated. IV contrast dose: 75 cc Visipaque 320 contrast material. Radiation dose: Total exam DLP = 512.45 mGy-cm. This CT exam was performed using one or more of the following dose reduction techniques: Automated exposure control, adjustment of the mA and/or kV according to patient size, and/or use of iterative reconstruction technique. FINDINGS: There are partially calcified atherosclerotic plaque changes seen along the thoracic aorta and at the origins of the great vessels. The common carotid arteries are widely patent without evidence of occlusion dissection or significant stenosis. Partially calcified atherosclerotic plaque changes are present at both carotid bifurcations extending into the proximal margins of both internal carotid artery. Changes result in mild narrowing of the of proximal internal carotid arteries. The distal internal carotid arteries including the petrous cavernous and supraclinoid segments are also patent.. There are mild calcified plaque changes seen along both carotid siphons left slightly more so than right. The Both vertebral arteries are patent throughout neither which appears more significantly dominant than the other. There are partially calcified atherosclerotic plaque changes also seen on along the distal vertebral arteries (proximal intradural segments) although the vertebral arteries are patent. The major branches of the [id number] are also patent.. No evidence of large aneurysm nor vascular malformation. The distal of branches of the anterior middle and posterior cerebral arteries are also patent and appear relatively symmetric. OTHER FINDINGS: There is also a 18 x 13 mm hypodense nodule right lobe of the thyroid gland of with smaller adjacent nodules and a 1 or 2 tiny calcifications along the posterior margin of the right aspect of the isthmus right lobe junction. Thyroid ultrasound follow-up recommended. Mild biapical pleural thickening and parenchymal scarring changes are present. Note made of a buckle procedure left globe. Changes of bilateral cataract surgery also present. IMPRESSION: Mild partially calcified atherosclerotic plaque changes seen both carotid bifurcations and proximal internal carotid arteries with no evidence of occlusion significant stenosis or dissection. Mild calcified plaque changes also noted both cavernous carotid arteries and distal vertebral arteries (intradural segments). The intra cerebral vasculature is unremarkable. No evidence of large aneurysm nor vascular malformation. Hyperdense nodules right lobe thyroid gland with few tiny calcifications. Recommend follow-up thyroid ultrasound.
[2018-05-25] MEDS ORDERED: Heparin25000 units/250ml 1/2NS 25,000 UNITS/250 ML BAG IV PRN (14:11)
--- NOTE | 2018-05-25 14:42 | CP.PCM.CON ---
History of Present Illness - History of Present Illness History of Present Illness: Consult note for Dr. Rachel Patient is an 81 year old female with a history of DM, HTN, HLD, arthritis, and asthma, who presents to the hospital with dysarthria, weakness and chest pain. Patient's grandson and daughter in law are at bedside providing the history and translating. The patient was last seen normal around 8am, and around 10 am, the grandson found the patient in the bathroom, slumped/leaning to the right, slurring her words, and couldn't walk due to weakness. The grandson picked her up and took her to the bedroom. The patient then pointed to her chest and complained of chest pain and was breathing heavily. While examining the patient, she verbally responded to her family members, but did not want to cooperate with examination or respond to questions. The patient continuously pointed to her chest and complained of pain. She was moving all extremities without difficulty and able to talk (with a slight slur, per the family). ROS difficult to obtain as patient is only complaining of chest pain and is otherwise not cooperating. PMD: Dr. Luis Iverson PMHx: DM, HTN, HLD, arthritis, asthma SurgHx: unknown FamHx: unknown Sochx: denies tobacco, alcohol, and drug use; lives with her son, daughter in law and grandchildren Allergies: NKDA Medications: losartan/hctz 50-12.5,mg, simvastatin 40mg po daily, metformin 500mg po daily, omeprazole 40mg po hs, metoprolol succinate 50mg po hs Review of Systems - Review of Systems Systems not reviewed;Unavailable: Uncooperative - Constitutional Constitutional: As Per HPI - EENT Eyes: As Per HPI - Cardiovascular Cardiovascular: As Per HPI, Chest Pain - Respiratory Respiratory: As Per HPI, Other ("heavy breathing") - Gastrointestinal Gastrointestinal: As Per HPI - Musculoskeletal Musculoskeletal: As Per HPI - Neurological Neurological: As Per HPI, Abnormal Speech, Weakness Past Patient History - Past Medical History & Family History Past Medical History?: Yes - Past Social History Smoking Status: Never Smoked - CARDIAC Hx Hypertension: Yes - PULMONARY Hx Asthma: Yes - NEUROLOGICAL Hx Neurological Disorder: No - HEENT Hx HEENT Problems: No - RENAL Hx Chronic Kidney Disease: No - ENDOCRINE/METABOLIC Hx Diabetes Mellitus Type 2: Yes - HEMATOLOGICAL/ONCOLOGICAL Hx Blood Disorders: No - INTEGUMENTARY Hx Dermatological Problems: No - MUSCULOSKELETAL/RHEUMATOLOGICAL Hx Musculoskeletal Disorders: No - GASTROINTESTINAL Hx Gastrointestinal Disorders: No - GENITOURINARY/GYNECOLOGICAL Hx Genitourinary Disorders: No - PSYCHIATRIC Hx Substance Use: No - SURGICAL HISTORY Hx Surgeries: Yes Other/Comment: Surgical scar to abdomen - ANESTHESIA Hx Malignant Hyperthermia: No Meds Allergies/Adverse Reactions: Allergies Allergy/AdvReac Type Severity Reaction Status Date / Time No Known Allergies Allergy Verified 05/25/18 11:48 - Medications Medications: Current Medications Heparin Sodium/Sodium Chloride (Heparin 05138 Units/250ml 1/2 Normal Saline) 25,000 units in 250 mls @ 7.752 mls/hr IV .Q24H PRN; Protocol PRN Reason: ADJUST RATE PER PROTOCOL Physical Exam - Constitutional Appears: In Acute Distress (appeared uncomfortable, in pain) - Head Exam Head Exam: ATRAUMATIC, NORMAL INSPECTION - Eye Exam Eye Exam: EOMI, Normal appearance - ENT Exam ENT Exam: Mucous Membranes Dry - Respiratory Exam Respiratory Exam: Clear to Auscultation Bilateral, NORMAL BREATHING PATTERN. absent: Rales, Rhonchi, Wheezes, Respiratory Distress - Cardiovascular Exam Cardiovascular Exam: Tachycardia, REGULAR RHYTHM, +S1, +S2 - GI/Abdominal Exam GI & Abdominal Exam: Normal Bowel Sounds, Soft. absent: Distended, Firm, Tenderness - Extremities Exam Extremities exam: Positive for: pedal pulses present. Negative for: pedal ed katelynn, tenderness - Neurological Exam Neurological exam: Alert, Oriented x3, Reflexes Normal Additional comments: slight right sided facial droop, babinski normal, 1+ reflexes b/l, scanning tech strength 5/5 b/l; sensation intact and symmetrical; motor exam- patient moving all extremities, however, neuro exam limited and strength testing not assessed as patient is not cooperating. - Psychiatric Exam Psychiatric exam: Anxious - Skin Skin Exam: Dry, Normal Color, Warm Results - Vital Signs Recent Vital Signs: Last Vital Signs Temp 98.3 F 05/25/18 11:41 Pulse 117 H 05/25/18 11:41 Resp 20 05/25/18 11:41 BP 153/81 H 05/25/18 11:45 Pulse Ox 97 05/25/18 12:59 - Labs Result Diagrams: 05/25/18 11:55 05/25/18 11:55 Labs: Laboratory Results - last 24 hr 05/25/18 05/25/18 05/25/18 11:41 11:55 11:55 WBC 11.6 H RBC 4.81 Hgb 13.9 Hct 40.8 MCV 84.9 MCH 28.9 MCHC 34.0 RDW 14.0 Plt Count 342 MPV 7.3 Neut % (Auto) 77.4 H Lymph % (Auto) 13.2 L [place] % (Auto) 6.9 Eos % (Auto) 1.8 Baso % (Auto) 0.7 Neut # (Auto) 9.0 H Lymph # (Auto) 1.5 [place] # (Auto) 0.8 Eos # (Auto) 0.2 Baso # (Auto) 0.1 PT 11.6 INR 1.1 APTT 34 Sodium Potassium Chloride Carbon Dioxide Anion Gap BUN Creatinine Est GFR ( Amer) Est GFR (Non-Af Amer) POC Glucose (mg/dL) 198 H Random Glucose Hemoglobin A1c Calcium Total Bilirubin AST ALT Alkaline Phosphatase Troponin I Total Protein Albumin Globulin Albumin/Globulin Ratio Triglycerides Cholesterol LDL Cholesterol Direct HDL Cholesterol Blood Type Antibody Screen 05/25/18 05/25/18 05/25/18 11:55 11:55 11:55 WBC RBC Hgb Hct MCV MCH MCHC RDW Plt Count MPV Neut % (Auto) Lymph % (Auto) [place] % (Auto) Eos % (Auto) Baso % (Auto) Neut # (Auto) Lymph # (Auto) [place] # (Auto) Eos # (Auto) Baso # (Auto) PT INR APTT Sodium 133 Potassium 3.5 L Chloride 89 L Carbon Dioxide 32 H Anion Gap 15 BUN 8 Creatinine 0.4 L Est GFR ( Amer) > 60 Est GFR (Non-Af Amer) > 60 POC Glucose (mg/dL) Random Glucose 195 H Hemoglobin A1c 7.8 H Calcium 10.1 Total Bilirubin 0.5 AST 26 ALT 23 Alkaline Phosphatase 92 Troponin I 0.5910 H* Total Protein 7.7 Albumin 4.2 Globulin 3.5 Albumin/Globulin Ratio 1.2 Triglycerides 208 H Cholesterol 141 LDL Cholesterol Direct 74 HDL Cholesterol 47 Blood Type B POSITIVE Antibody Screen Negative Assessment & Plan - Assessment and Plan (Free Text) Plan: 81 year old female with a history of DM, HTN, HLD, arthritis, and asthma, who presents to the hospital with dysarthria, weakness and chest pain. Plan: AMS/Dysarthria - r/o stroke vs encephalopathy - ER NIHSS: 4 - Repeat NIHSS- difficult to assess as patient is not cooperating; +slurred s peech per family, but answering questions appropriately; patient is moving all extremities; slight facial asymmetry noted; scanning tech strength normal. - Was given ASA 300mg NC as pt failed swallow eval in ER - Swallow and speech eval, follow up Imaging: * Head/neck CTA (05/25): Mild partially calcified atherosclerotic plaque changes seen both carotid bifurcations and proximal internal carotid arteries with no evidence of occlusion significant stenosis or dissection. Mild calcified plaque changes also noted both cavernous carotid arteries and distal vertebral arteries. * Head CT (05/25): No acute intracranial hemorrhage. Chronic microvascular ischemic change. 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 Intracranial arterial calcifications. Mucosal thickening and hypertrophy of the bilateral maxillary sinuses and ethmoid air cells. 2.2 centimeter mucosal retention cyst and or polyp in the left maxillary sinus. * Brain MRI ordered: follow up Case discussed with Dr. Virginie Silvestre, PGY2
[2018-05-25] MEDS ORDERED: Heparin25000 units/250ml 1/2NS 25,000 UNITS/250 ML BAG IV SCH (14:45)
--- NOTE | 2018-05-25 15:01 | RAD ---
Date of service: 05/25/2018 HISTORY: Code Stroke COMPARISON: 08/22/2017 FINDINGS: LUNGS: No consolidation. PLEURA: No significant pleural effusion identified, no pneumothorax apparent. CARDIOVASCULAR: There is presence of aortic atherosclerotic calcification on x-ray. Mild cardiomegaly-similar. Probable minimal pulmonary venous congestion possibly chronic OSSEOUS STRUCTURES: Bilateral glenohumeral arthrosis secondary left avascular necrosis not excluded. Inferior glenohumeral joint loose bodies and/or synovial osteochondromatosis.-similar Bilateral acromioclavicular joint arthrosis Thoracic spondylosis VISUALIZED UPPER ABDOMEN: Normal. OTHER FINDINGS: None. IMPRESSION: No interval acute cardiopulmonary pathology suspect. Cardiomegaly and minimal chronic pulmonary venous congestion inferred. Atherosclerotic vascular disease. Bilateral shoulder arthrosis as detailed above.
--- NOTE | 2018-05-25 15:22 | CP.PCM.CON ---
<Jeyson Salmeron - Last Filed: 05/25/18 16:57> History of Present Illness - History of Present Illness History of Present Illness: PGY-1 ICU Consult note for Dr. Chris Aiken CC: Chest pain and altered mental status Patient is an 81 year old female with PMHx of DM-2, HTN, HLD, arthritis, and ast hma presenting with chest pain and altered mental status. Patient's daughter and son were at bedside providing history. Patient's daughter states that she was last seen normal around 8am, and around 10 am, the grandson found the patient in the bathroom, slumped/leaning to the right, slurring her words, and couldn't walk due to weakness. The grandson picked her up and took her to the bedroom. The patient then pointed to her chest and complained of chest pain and was breathing heavily. Patient was a code stroke in the ED. ROS reviewed and history limited as patient is not fully cooperative with answering questions. PMD: Dr. Luis Iverson PMHx: DM, HTN, HLD, arthritis, asthma PSurgHx: denies Family Hx: denies Social hx: denies tobacco, alcohol, and drug use; lives with her son, daughter in law and grandchildren Allergies: NKDA Medications: losartan/hctz 50-12.5,mg, simvastatin 40mg po daily, metformin 500mg po daily, omeprazole 40mg po hs, metoprolol succinate 50mg po hs Review of Systems - Review of Systems Systems not reviewed;Unavailable: Uncooperative All systems: reviewed and no additional remarkable complaints except Past Patient History - Past Medical History & Family History Past Medical History?: Yes - Past Social History Smoking Status: Never Smoked - CARDIAC Hx Hypertension: Yes - PULMONARY Hx Asthma: Yes - NEUROLOGICAL Hx Neurological Disorder: No - HEENT Hx HEENT Problems: No - RENAL Hx Chronic Kidney Disease: No - ENDOCRINE/METABOLIC Hx Diabetes Mellitus Type 2: Yes - HEMATOLOGICAL/ONCOLOGICAL Hx Blood Disorders: No - INTEGUMENTARY Hx Dermatological Problems: No - MUSCULOSKELETAL/RHEUMATOLOGICAL Hx Musculoskeletal Disorders: No - GASTROINTESTINAL Hx Gastrointestinal Disorders: No - GENITOURINARY/GYNECOLOGICAL Hx Genitourinary Disorders: No - PSYCHIATRIC Hx Substance Use: No - SURGICAL HISTORY Hx Surgeries: Yes Other/Comment: Surgical scar to abdomen - ANESTHESIA Hx Malignant Hyperthermia: No Meds Allergies/Adverse Reactions: Allergies Allergy/AdvReac Type Severity Reaction Status Date / Time No Known Allergies Allergy Verified 05/25/18 11:48 - Medications Medications: Current Medications Heparin Sodium/Sodium Chloride (Heparin 96715 Units/250ml 1/2 Normal Saline) 25,000 units in 250 mls @ 7.752 mls/hr IV .Q24H MAG; Protocol Physical Exam - Additional Findings Additional findings: - Constitutional Appears: In Acute Distress (appeared uncomfortable, in pain) - Head Exam Head Exam: ATRAUMATIC, NORMAL INSPECTION - Eye Exam Eye Exam: EOMI, Normal appearance - ENT Exam ENT Exam: Mucous Membranes Dry - Respiratory Exam Respiratory Exam: Clear to Auscultation Bilateral, NORMAL BREATHING PATTERN. absent: Rales, Rhonchi, Wheezes, Respiratory Distress - Cardiovascular Exam Cardiovascular Exam: Tachycardia, REGULAR RHYTHM, +S1, +S2 - GI/Abdominal Exam GI & Abdominal Exam: Normal Bowel Sounds, Soft. absent: Distended, Firm, Tenderness - Extremities Exam Extremities exam: Positive for: pedal pulses present. Negative for: pedal edema, tenderness - Neurological Exam Neurological exam: Alert, Oriented x3, Reflexes Normal Additional comments: patient moving all extremities, neuro exam limited and strength testing not assessed as patient is not cooperating. - Psychiatric Exam Psychiatric exam: Anxious - Skin Skin Exam: Dry, Normal Color, Warm Results - Vital Signs Recent Vital Signs: Last Vital Signs Temp 98.3 F 05/25/18 11:41 Pulse 117 H 05/25/18 11:41 Resp 20 05/25/18 11:41 BP 153/81 H 05/25/18 11:45 Pulse Ox 97 05/25/18 14:57 - Labs Result Diagrams: 05/25/18 11:55 05/25/18 11:55 Labs: Laboratory Results - last 24 hr 05/25/18 05/25/18 05/25/18 11:41 11:55 11:55 WBC 11.6 H RBC 4.81 Hgb 13.9 Hct 40.8 MCV 84.9 MCH 28.9 MCHC 34.0 RDW 14.0 Plt Count 342 MPV 7.3 Neut % (Auto) 77.4 H Lymph % (Auto) 13.2 L Burke % (Auto) 6.9 Eos % (Auto) 1.8 Baso % (Auto) 0.7 Neut # (Auto) 9.0 H Lymph # (Auto) 1.5 Burke # (Auto) 0.8 Eos # (Auto) 0.2 Baso # (Auto) 0.1 PT 11.6 INR 1.1 APTT 34 Sodium Potassium Chloride Carbon Dioxide Anion Gap BUN Creatinine Est GFR ( Amer) Est GFR (Non-Af Amer) POC Glucose (mg/dL) 198 H Random Glucose Hemoglobin A1c Calcium Total Bilirubin AST ALT Alkaline Phosphatase Troponin I Total Protein Albumin Globulin Albumin/Globulin Ratio Triglycerides Cholesterol LDL Cholesterol Direct HDL Cholesterol Blood Type Antibody Screen 05/25/18 05/25/18 05/25/18 11:55 11:55 11:55 WBC RBC Hgb Hct MCV MCH MCHC RDW Plt Count MPV Neut % (Auto) Lymph % (Auto) Burke % (Auto) Eos % (Auto) Baso % (Auto) Neut # (Auto) Lymph # (Auto) Burke # (Auto) Eos # (Auto) Baso # (Auto) PT INR APTT Sodium 133 Potassium 3.5 L Chloride 89 L Carbon Dioxide 32 H Anion Gap 15 BUN 8 Creatinine 0.4 L Est GFR ( Amer) > 60 Est GFR (Non-Af Amer) > 60 POC Glucose (mg/dL) Random Glucose 195 H Hemoglobin A1c 7.8 H Calcium 10.1 Total Bilirubin 0.5 AST 26 ALT 23 Alkaline Phosphatase 92 Troponin I 0.5910 H* Total Protein 7.7 Albumin 4.2 Globulin 3.5 Albumin/Globulin Ratio 1.2 Triglycerides 208 H Cholesterol 141 LDL Cholesterol Direct 74 HDL Cholesterol 47 Blood Type B POSITIVE Antibody Screen Negative Assessment & Plan - Assessment and Plan (Free Text) Assessment: Patient is an 81 year old female with a history of DM, HTN, HLD, arthritis, and asthma, who presenting with chest pain and altered mental status. Patient was a code stroke in the ED. Plan: Neuro: Altered mental status - R/o CVA - Neurology consulted, Dr. Rachel - Speech/swallow evaluation - Head/neck CTA (05/25): Mild partially calcified atherosclerotic plaque changes seen both carotid bifurcations and proximal internal carotid arteries with no evidence of occlusion significant stenosis or dissection. Mild calcified plaque changes also noted both cavernous carotid arteries and distal vertebral arteries. - Head CT (05/25): No acute intracranial hemorrhage. Chronic microvascular ischemic change. 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 Intracranial arterial calcifications. Mucosal thickening and hypertrophy of the bilateral maxillary sinuses and ethmoid air cells. 2.2 centimeter mucosal retention cyst and or polyp in the left maxillary sinus. Cardiovascular: NSTEMI - Troponin: 0.591 --> 0.592 - Trend troponins - Cardiology consulted, Dr. Stephens - CXR (05/25): No interval acute cardiopulmonary pathology suspect. Cardiomegaly and minimal chronic pulmonary venous congestion inferred. Atherosclerotic vascular disease. - Chest CT: f/u - Echo: f/u - Heparin drip - Nitroglycerin drip - ASA and Plavix given in ED HLD: - Triglycerides: 208 - Lipid panel: LDL 74, HDL 74, Chol 141 - Crestor 5mg PO HS Pulm: - No acute issues GI: - No acute issues Endo: DM-2 - HbA1c - ISS - Accuchecks ACHS - Hypoglycemia protocol Renal: Hypokalemia - Replete as needed - Continue to monitor ID: Leukocytosis - WBC: 11.3 - RPR: f/u - Continue to monitor Prophylaxis: - SCD's - Heparin drip Case discussed with Dr. Chris Salmeron, PGY-1 <Fatou Aiken - Last Filed: 05/25/18 21:38> Meds - Medications Medications: Current Medications Dextrose (Dextrose 50% Inj) 0 ml IV STAT PRN; Protocol PRN Reason: Hypoglycemia Protocol Dextrose (Glutose 15) 0 gm PO ONCE PRN; Protocol PRN Reason: Hypoglycemia Protocol Glucagon (Glucagen Diagnostic Kit) 0 mg IM STAT PRN; Protocol PRN Reason: Hypoglycemia Protocol Hydrochlorothiazide (Microzide) 12.5 mg PO DAILY MAG Heparin Sodium/Sodium Chloride (Heparin 62484 Units/250ml 1/2 Normal Saline) 25,000 units in 250 mls @ 7.752 mls/hr IV .Q24H MAG; Protocol Last Titration: 05/25/18 21:00 Dose: 12.07 units/kg/hr, 7.8 mls/hr Dextrose (Dextrose 5% In Water 1000 Ml) 1,000 mls @ 0 mls/hr IV .Q0M PRN; Protocol PRN Reason: Hypoglycemia Protocol Potassium Chloride (Potassium Chloride 10 Meq/100 Ml) 10 meq in 100 mls @ 100 mls/hr IVPB Q6H MAG Stop: 05/25/18 23:59 Last Admin: 05/25/18 17:17 Dose: 100 mls/hr Nitroglycerin/Dextrose (Nitroglycerin 50 Mg/250 Ml D5w) 50 mg in 250 mls @ 15 mls/hr IV .[id number] MAG; Protocol Last Titration: 05/25/18 18:35 Dose: 0 mcg/min, 0 mls/hr Midazolam HCl 100 mg/ Dextrose 100 mls @ 1.29 mls/hr IV .Q24H MAG; Protocol Insulin Human Regular (Novolin R) 0 unit SC ACHS MAG; Protocol Last Admin: 05/25/18 18:00 Dose: 1 u Lorazepam (Ativan) 2 mg IVP Q6H PRN PRN Reason: Agitation Last Admin: 05/25/18 20:23 Dose: 2 mg Losartan Potassium (Cozaar) 100 mg PO DAILY MAG Pantoprazole Sodium (Protonix Ec Tab) 40 mg PO DAILY MAG Rosuvastatin Calcium (Crestor) 10 mg PO HS [facility] Results - Vital Signs Recent Vital Signs: Last Vital Signs Temp 98.4 F 05/25/18 15:32 Pulse 48 L 05/25/18 19:35 Resp 16 05/25/18 19:00 BP 135/60 05/25/18 19:13 Pulse Ox 100 05/25/18 19:00 - Labs Result Diagrams: 05/25/18 21:11 05/25/18 21:11 Labs: Laboratory Results - last 24 hr 05/25/18 05/25/18 05/25/18 11:41 11:55 11:55 WBC 11.6 H RBC 4.81 Hgb 13.9 Hct 40.8 MCV 84.9 MCH 28.9 MCHC 34.0 RDW 14.0 Plt Count 342 MPV 7.3 Neut % (Auto) 77.4 H Lymph % (Auto) 13.2 L Burke % (Auto) 6.9 Eos % (Auto) 1.8 Baso % (Auto) 0.7 Neut # (Auto) 9.0 H Lymph # (Auto) 1.5 Burke # (Auto) 0.8 Eos # (Auto) 0.2 Baso # (Auto) 0.1 PT 11.6 INR 1.1 APTT 34 Puncture Site pCO2 pO2 HCO3 ABG pH ABG Total CO2 ABG O2 Saturation ABG Base Excess Garfield Test ABG Potassium A-a O2 Difference Respiratory Index Glucose Lactate Vent Mode Mechanical Rate FiO2 Tidal Volume PEEP Sodium Potassium Chloride Carbon Dioxide Anion Gap BUN Creatinine Est GFR ( Amer) Est GFR (Non-Af Amer) POC Glucose (mg/dL) 198 H Random Glucose Hemoglobin A1c Calcium Phosphorus Magnesium Total Bilirubin AST ALT Alkaline Phosphatase Troponin I Total Protein Albumin Globulin Albumin/Globulin Ratio Triglycerides Cholesterol LDL Cholesterol Direct HDL Cholesterol Arterial Blood Potassium Blood Type Antibody Screen 05/25/18 05/25/18 05/25/18 11:55 11:55 11:55 WBC RBC Hgb Hct MCV MCH MCHC RDW Plt Count MPV Neut % (Auto) Lymph % (Auto) Burke % (Auto) Eos % (Auto) Baso % (Auto) Neut # (Auto) Lymph # (Auto) Burke # (Auto) Eos # (Auto) Baso # (Auto) PT INR APTT Puncture Site pCO2 pO2 HCO3 ABG pH ABG Total CO2 ABG O2 Saturation ABG Base Excess Garfield Test ABG Potassium A-a O2 Difference Respiratory Index Glucose Lactate Vent Mode Mechanical Rate FiO2 Tidal Volume PEEP Sodium 133 Potassium 3.5 L Chloride 89 L Carbon Dioxide 32 H Anion Gap 15 BUN 8 Creatinine 0.4 L Est GFR ( Amer) > 60 Est GFR (Non-Af Amer) > 60 POC Glucose (mg/dL) Random Glucose 195 H Hemoglobin A1c 7.8 H Calcium 10.1 Phosphorus Magnesium Total Bilirubin 0.5 AST 26 ALT 23 Alkaline Phosphatase 92 Troponin I 0.5910 H* Total Protein 7.7 Albumin 4.2 Globulin 3.5 Albumin/Globulin Ratio 1.2 Triglycerides 208 H Cholesterol 141 LDL Cholesterol Direct 74 HDL Cholesterol 47 Arterial Blood Potassium Blood Type B POSITIVE Antibody Screen Negative 05/25/18 05/25/18 05/25/18 14:53 17:46 19:45 WBC RBC Hgb Hct MCV MCH MCHC RDW Plt Count MPV Neut % (Auto) Lymph % (Auto) Burke % (Auto) Eos % (Auto) Baso % (Auto) Neut # (Auto) Lymph # (Auto) Burke # (Auto) Eos # (Auto) Baso # (Auto) PT INR APTT Puncture Site Lra pCO2 33 L pO2 470 H HCO3 27.3 ABG pH 7.50 H ABG Total CO2 26.7 ABG O2 Saturation 99.8 H ABG Base Excess 2.9 Garfield Test Pos ABG Potassium 3.1 L A-a O2 Difference 202.0 Respiratory Index 0.4 Glucose 189 H Lactate 3.5 H Vent Mode Prvc Mechanical Rate 20 FiO2 100.0 Tidal Volume 500 PEEP 5 Sodium 131.0 L Potassium Chloride 99.0 Carbon Dioxide Anion Gap BUN Creatinine Est GFR ( Amer) Est GFR (Non-Af Amer) POC Glucose (mg/dL) 153 H Random Glucose Hemoglobin A1c Calcium Phosphorus Magnesium Total Bilirubin AST ALT Alkaline Phosphatase Troponin I 0.5920 H* Total Protein Albumin Globulin Albumin/Globulin Ratio Triglycerides Cholesterol LDL Cholesterol Direct HDL Cholesterol Arterial Blood Potassium 3.1 L Blood Type Antibody Screen 05/25/18 05/25/18 05/25/18 20:20 21:11 21:11 WBC 10.8 RBC 4.66 Hgb 13.4 Hct 39.2 MCV 84.1 MCH 28.8 MCHC 34.2 RDW 14.2 Plt Count 355 MPV 7.6 Neut % (Auto) 77.5 H Lymph % (Auto) 15.8 L Burke % (Auto) 5.4 Eos % (Auto) 0.6 Baso % (Auto) 0.7 Neut # (Auto) 8.4 H Lymph # (Auto) 1.7 Burke # (Auto) 0.6 Eos # (Auto) 0.1 Baso # (Auto) 0.1 PT INR APTT Puncture Site pCO2 pO2 HCO3 ABG pH ABG Total CO2 ABG O2 Saturation ABG Base Excess Garfield Test ABG Potassium A-a O2 Difference Respiratory Index Glucose Lactate Vent Mode Mechanical Rate FiO2 Tidal Volume PEEP Sodium 130 L Potassium 3.6 Chloride 87 L Carbon Dioxide 29 Anion Gap 18 BUN 9 Creatinine 0.5 L Est GFR ( Amer) > 60 Est GFR (Non-Af Amer) > 60 POC Glucose (mg/dL) 186 H Random Glucose 218 H Hemoglobin A1c Calcium 9.7 Phosphorus 3.5 Magnesium 2.3 Total Bilirubin 1.0 AST 76 H D ALT 30 Alkaline Phosphatase 85 Troponin I Total Protein 7.1 Albumin 3.9 Globulin 3.3 Albumin/Globulin Ratio 1.2 Triglycerides Cholesterol LDL Cholesterol Direct HDL Cholesterol Arterial Blood Potassium Blood Type Antibody Screen Assessment & Plan - Assessment and Plan (Free Text) Plan: Patient seen and examined at bedside. Patient admitted to ICU for chest pain/stroke. Patient was being treated with IV heparin and IV nitro for SBP near 220. Patient developed V-tach arrest while being evaluated. Patient was imme diately intubated and CPR was performed and ROSC obtained. Patient's rhythm changed from bundl branch block to 3rd degree block. -Dr. Aguilar at bedside. current clinical situation explained to patient's daughter. Patient's daughter requested conservative measure and refused Transcutaneous PPM placement and refused PCI. Risks, benefits and alternatives explaiend. Daughter verbalized that they jsut went through such life sustaining measure with another family member and currently do not want any agresive measure. -However daughter is not ready to sign DNr/DNI. - NSTEMI/V-tach: IV mag sulfate, cardiology input, continue DAPT + IV heparin + statin, hold ACEI as patient's BP very volatile -?CVA: repeat ct head neg, continue asa + statin -dvt ppx heparin IV -pud ppx protonix -bgm q4hrs -Hypoxic respiratory failure: patient intubated continue ventilation to protect airway. Extubate once heart rate and rhythm stablizes. -Patient remains critical cc time 35 minutes d/w daughter, Dr. Aguilar and ICu team - Date & Time Date: 05/25/18 Time: 21:37
[2018-05-25] MEDS ORDERED: Dextrose 50% SYRINGE Inj (50 ml) IV PRN (15:32)
[2018-05-25] MEDS ORDERED: Glucagon Recombinant 1 mg Inj IM PRN (15:32)
[2018-05-25] MEDS ORDERED: Nitroglycerin 50mg in D5W 50 MG/250 ML BOTTLE IV SCH ×2 (16:30→17:20)
[2018-05-25] MEDS ORDERED: (Novolin R) Insulin Human Regular 100 units/ml vial SC SCH (16:30)
--- NOTE | 2018-05-25 16:39 | CT ---
Date of service: 05/25/2018 CT Dissection protocol Indication: CHEST PAIN Technique: Contiguous axial images were obtained through the chest/abdomen without and with intravenous contrast enhancement utilizing dissection protocol technique. Sagittal and coronal reconstructions were generated and reviewed. This CT exam was performed using 1 or more of the following dose reduction techniques: Automated exposure control, adjustment of the MAA and/or kV according to patient size, and/or use of iterative reconstruction technique. Radiation dose (DLP): 1334.82 MGy-cm. Contrast: 100 mL Visipaque 320 IV Findings: Visualized portions of the inferior thyroid gland: 1.2 cm hypodense nodule at the right lower pole. Additional tiny hypodensities within visualized bilateral lower thyroid poles. The mediastinal and hilar vascular structures appear within normal limits. The heart appears within normal limits of size. No evidence of thoracic or abdominal aorta dissection or aneurysmal dilatation. Atherosclerotic calcifications and mural plaque evident. Dense coronary artery calcifications. No focal consolidation. No pleural effusion. No pneumothorax. No suspicious pulmonary nodules measuring greater than 5 mm. There is normal course and contour of the abdominal aorta and common iliac arteries. The celiac artery origin appears patent. Dense calcification noted near the at the origin of the superior mesenteric artery. The inferior mesenteric artery origin appears patent. Bilateral renal arteries appear patent with calcifications noted near the origin. Hypoattenuation of the liver compatible with hepatic steatosis. Cholecystectomy clips. Atrophic pancreas. Pancreatic duct appears markedly dilated measuring approximately 1.3 cm in diameter as well as ectatic. 1 cm hypodense focus at the uncinate process (series 3, image 142) measures approximately 5 Hounsfield units consistent with cyst. Dilated common bile duct measures approximately 1.3 cm. The spleen and adrenal glands appear unremarkable. The kidneys enhance symmetrically without evidence of hydronephrosis or obstructing renal calculi. No enlarged abdominal lymphadenopathy is identified. The stomach is nondistended. The included bowel loops appear within normal limits of caliber without evidence of obstruction. No definite free air. T8, T11, T12, and L1 compression fracture deformities. Multilevel degenerative changes. Osseous demineralization. Impression: No evidence of thoracic or abdominal aorta dissection or aneurysmal dilatation. Atherosclerotic calcifications and mural plaque evident. Dense coronary artery calcifications. Pancreatic duct appears markedly dilated measuring approximately 1.3 cm in diameter as well as ectatic. 1 cm hypodense focus at the uncinate process measures approximately 5 Hounsfield units consistent with cyst. Differential diagnosis includes small cystic neoplasm versus sequela of prior pancreatitis (dilated side duct radicles or tiny pseudocyst). Atrophic pancreas. Recommend clinical correlation including prior outside imaging. If indicated, follow-up pancreatic protocol CT or MRI may be considered for further assessment. Hypoattenuation of the liver compatible with hepatic steatosis. Dilated common bile duct in the setting of cholecystectomy. T8, T11, T12, and L1 compression fracture deformities. MRI may be considered for further evaluation if indicated. Visualized portions of the inferior thyroid gland: 1.2 cm hypodense nodule at the right lower pole. Additional tiny hypodensities within visualized bilateral lower thyroid poles. Follow-up outpatient thyroid ultrasound may be considered for further assessment if indicated. Additional findings as above.
[2018-05-25] MEDS ORDERED: Magnesium Sulfate 1 gm in D5W 1 GM/100 ML BAG IVPB ONE (19:47)
[2018-05-25 19:52] LABS: ABG ALLEN TEST POS; ARTERIAL BLOOD GAS HCO3 27.3 mmol/L (21-28); ARTERIAL BLOOD GAS O2 SAT 99.8 % (95-98); ARTERIAL BLOOD GAS PCO2 33 mm/Hg (35-45); ARTERIAL BLOOD GAS PO2 470 mm/Hg (80-100); ARTERIAL BLOOD GAS TCO2 26.7 mmol/L (22-28)
--- NOTE | 2018-05-25 20:16 | PCM.PROC ---
Procedures Attestation:: I certify that I have explained the specified Operation(s) or Procedure(s), risks, benefits and reasonable alternatives to the Patient and/or other person responsible. The opportunity was given to ask questions and all questions answered - Central Line Placement Right Femoral Triple Lumen Catheter Aseptic technique was employed throughout the procedure: Full sterile barriers (mask, hair cover, sterile gown, sterile gloves), Chloraprep Antiseptic: 2 minute prep for Femoral CVP Time Out Performed: Yes Pt. Placed on Pulse Ox Monitor: Yes Central Line Prep: Chlorhexidine-Alcohol Combination Local Anesthesia Used: Lidocaine 1% Amount of Anesthesia Used (mls): 5 Ultrasound Used for Placement: No Central Line Lumen Inserted: triple Central Line Length: 20 cm Post Procedure: Sutured in Place, Good Blood Return, All Ports Aspirated, Flush ed, Capped, Sterile Dressing Applied Secured by: Suture Post procedure dressing: Gauze, Clear vapor permeable, Chlorhexidine disc (Biopatch) Post Procedure X-Ray: Yes Patient Tolerated Procedure: Well Immediate Complications: None
--- NOTE | 2018-05-25 20:17 | PCM.PROC ---
Procedures Attestation:: I certify that I have explained the specified Operation(s) or Procedure(s), risks, benefits and reasonable alternatives to the Patient and/or other person responsible. The opportunity was given to ask questions and all questions answered - Intubation Sedative: None Laryngoscope: Piyush ET Tube Size: 7.5 ET Tube Uncuffed: No ET Tube Secured at Depth: 22 ET Tube Secured Locarion: Teeth ET Tube Placement Confirmation: Visualized Passing Through Cords, Breath Sounds Equal Bilaterally, No Breath Sounds Over Epigastrum, Confirmation w/Capnometry Patient Tolerated Procedure: Well Procedure Immediate Complications: None
[2018-05-25 21:15] LABS: BASO # 0.1 K/uL (0.0-0.2); BASO % 0.7 % (0.0-2.0); EOS # 0.1 K/uL (0.0-0.7); EOS % 0.6 % (0.0-4.0); HEMOGLOBIN 13.4 g/dL (11.0-16.0); LYMPH # 1.7 K/uL (1.0-4.3); LYMPH % 15.8 % (20.0-40.0); MEAN CELL VOLUME 84.1 fL (81.0-99.0); MEAN CORPUSCULAR HEMOGLOBIN 28.8 pg (27.0-31.0); MEAN CORPUSCULAR HGB CONC 34.2 g/dL (33.0-37.0); MEAN PLATELET VOLUME 7.6 fL (7.2-11.7); MONO # 0.6 K/uL (0.0-0.8); MONO % 5.4 % (0.0-10.0); NEUT # 8.4 K/uL (1.8-7.0); NEUT % 77.5 % (50.0-75.0); RBC 4.66 Mil/uL (3.80-5.20); RED CELL DISTRIBUTION WIDTH 14.2 % (11.5-14.5); WHITE BLOOD COUNT 10.8 K/uL (4.8-10.8)
[2018-05-25] MEDS ORDERED: Midazolam 50 mg/10 ml 100 MG in Dextrose 5% In Water 80 ML IV SCH ×2 (21:15→21:30)
[2018-05-25 21:29] LABS: ALB/GLOB RATIO 1.2 (1.0-2.1); ALBUMIN 3.9 g/dL (3.5-5.0); ALT/SGPT 30 U/L (9-52); AST/SGOT 76 U/L (14-36); BLOOD UREA NITROGEN 9 mg/dL (7-17); CALCIUM 9.7 mg/dl (8.6-10.4); GFR NON-AFRICAN AMERICAN > 60
[2018-05-25] MEDS ORDERED: Sodium Chloride 0.9% 1,000 ML IV ONE ×2 (21:55)
--- NOTE | 2018-05-25 21:55 | CP.PCM.HP ---
Past Patient History - Past Medical History & Family History Past Medical History?: Yes - Past Social History Smoking Status: Never Smoked - CARDIAC Hx Hypertension: Yes - PULMONARY Hx Asthma: Yes - NEUROLOGICAL Hx Neurological Disorder: No - HEENT Hx HEENT Problems: No - RENAL Hx Chronic Kidney Disease: No - ENDOCRINE/METABOLIC Hx Diabetes Mellitus Type 2: Yes - HEMATOLOGICAL/ONCOLOGICAL Hx Blood Disorders: No - INTEGUMENTARY Hx Dermatological Problems: No - MUSCULOSKELETAL/RHEUMATOLOGICAL Hx Musculoskeletal Disorders: No - GASTROINTESTINAL Hx Gastrointestinal Disorders: No - GENITOURINARY/GYNECOLOGICAL Hx Genitourinary Disorders: No - PSYCHIATRIC Hx Substance Use: No - SURGICAL HISTORY Hx Surgeries: Yes Other/Comment: Surgical scar to abdomen - ANESTHESIA Hx Malignant Hyperthermia: No Meds Allergies/Adverse Reactions: Allergies Allergy/AdvReac Type Severity Reaction Status Date / Time No Known Allergies Allergy Verified 05/25/18 11:48 Results - Vital Signs Recent Vital Signs: Last Vital Signs Temp 98.4 F 05/25/18 15:32 Pulse 48 L 05/25/18 19:35 Resp 16 05/25/18 19:00 BP 135/60 05/25/18 19:13 Pulse Ox 100 05/25/18 19:00 - Labs Result Diagrams: 05/25/18 21:11 05/25/18 21:11 Labs: Laboratory Results - last 24 hr 05/25/18 05/25/18 05/25/18 11:41 11:55 11:55 WBC 11.6 H RBC 4.81 Hgb 13.9 Hct 40.8 MCV 84.9 MCH 28.9 MCHC 34.0 RDW 14.0 Plt Count 342 MPV 7.3 Neut % (Auto) 77.4 H Lymph % (Auto) 13.2 L [place] % (Auto) 6.9 Eos % (Auto) 1.8 Baso % (Auto) 0.7 Neut # (Auto) 9.0 H Lymph # (Auto) 1.5 [place] # (Auto) 0.8 Eos # (Auto) 0.2 Baso # (Auto) 0.1 PT 11.6 INR 1.1 APTT 34 Puncture Site pCO2 pO2 HCO3 ABG pH ABG Total CO2 ABG O2 Saturation ABG Base Excess Garfield Test ABG Potassium A-a O2 Difference Respiratory Index Glucose Lactate Vent Mode Mechanical Rate FiO2 Tidal Volume PEEP Sodium Potassium Chloride Carbon Dioxide Anion Gap BUN Creatinine Est GFR ( Amer) Est GFR (Non-Af Amer) POC Glucose (mg/dL) 198 H Random Glucose Hemoglobin A1c Calcium Phosphorus Magnesium Total Bilirubin AST ALT Alkaline Phosphatase Troponin I Total Protein Albumin Globulin Albumin/Globulin Ratio Triglycerides Cholesterol LDL Cholesterol Direct HDL Cholesterol Arterial Blood Potassium Blood Type Antibody Screen 05/25/18 05/25/18 05/25/18 11:55 11:55 11:55 WBC RBC Hgb Hct MCV MCH MCHC RDW Plt Count MPV Neut % (Auto) Lymph % (Auto) [place] % (Auto) Eos % (Auto) Baso % (Auto) Neut # (Auto) Lymph # (Auto) [place] # (Auto) Eos # (Auto) Baso # (Auto) PT INR APTT Puncture Site pCO2 pO2 HCO3 ABG pH ABG Total CO2 ABG O2 Saturation ABG Base Excess Garfield Test ABG Potassium A-a O2 Difference Respiratory Index Glucose Lactate Vent Mode Mechanical Rate FiO2 Tidal Volume PEEP Sodium 133 Potassium 3.5 L Chloride 89 L Carbon Dioxide 32 H Anion Gap 15 BUN 8 Creatinine 0.4 L Est GFR ( Amer) > 60 Est GFR (Non-Af Amer) > 60 POC Glucose (mg/dL) Random Glucose 195 H Hemoglobin A1c 7.8 H Calcium 10.1 Phosphorus Magnesium Total Bilirubin 0.5 AST 26 ALT 23 Alkaline Phosphatase 92 Troponin I 0.5910 H* Total Protein 7.7 Albumin 4.2 Globulin 3.5 Albumin/Globulin Ratio 1.2 Triglycerides 208 H Cholesterol 141 LDL Cholesterol Direct 74 HDL Cholesterol 47 Arterial Blood Potassium Blood Type B POSITIVE Antibody Screen Negative 05/25/18 05/25/18 05/25/18 14:53 17:46 19:45 WBC RBC Hgb Hct MCV MCH MCHC RDW Plt Count MPV Neut % (Auto) Lymph % (Auto) [place] % (Auto) Eos % (Auto) Baso % (Auto) Neut # (Auto) Lymph # (Auto) [place] # (Auto) Eos # (Auto) Baso # (Auto) PT INR APTT Puncture Site Lra pCO2 33 L pO2 470 H HCO3 27.3 ABG pH 7.50 H ABG Total CO2 26.7 ABG O2 Saturation 99.8 H ABG Base Excess 2.9 Garfield Test Pos ABG Potassium 3.1 L A-a O2 Difference 202.0 Respiratory Index 0.4 Glucose 189 H Lactate 3.5 H Vent Mode Prvc Mechanical Rate 20 FiO2 100.0 Tidal Volume 500 PEEP 5 Sodium 131.0 L Potassium Chloride 99.0 Carbon Dioxide Anion Gap BUN Creatinine Est GFR ( Amer) Est GFR (Non-Af Amer) POC Glucose (mg/dL) 153 H Random Glucose Hemoglobin A1c Calcium Phosphorus Magnesium Total Bilirubin AST ALT Alkaline Phosphatase Troponin I 0.5920 H* Total Protein Albumin Globulin Albumin/Globulin Ratio Triglycerides Cholesterol LDL Cholesterol Direct HDL Cholesterol Arterial Blood Potassium 3.1 L Blood Type Antibody Screen 05/25/18 05/25/18 05/25/18 20:20 21:11 21:11 WBC 10.8 RBC 4.66 Hgb 13.4 Hct 39.2 MCV 84.1 MCH 28.8 MCHC 34.2 RDW 14.2 Plt Count 355 MPV 7.6 Neut % (Auto) 77.5 H Lymph % (Auto) 15.8 L [place] % (Auto) 5.4 Eos % (Auto) 0.6 Baso % (Auto) 0.7 Neut # (Auto) 8.4 H Lymph # (Auto) 1.7 [place] # (Auto) 0.6 Eos # (Auto) 0.1 Baso # (Auto) 0.1 PT INR APTT Puncture Site pCO2 pO2 HCO3 ABG pH ABG Total CO2 ABG O2 Saturation ABG Base Excess Garfield Test ABG Potassium A-a O2 Difference Respiratory Index Glucose Lactate Vent Mode Mechanical Rate FiO2 Tidal Volume PEEP Sodium 130 L Potassium 3.6 Chloride 87 L Carbon Dioxide 29 Anion Gap 18 BUN 9 Creatinine 0.5 L Est GFR ( Amer) > 60 Est GFR (Non-Af Amer) > 60 POC Glucose (mg/dL) 186 H Random Glucose 218 H Hemoglobin A1c Calcium 9.7 Phosphorus 3.5 Magnesium 2.3 Total Bilirubin 1.0 AST 76 H D ALT 30 Alkaline Phosphatase 85 Troponin I 0.6090 H* Total Protein 7.1 Albumin 3.9 Globulin 3.3 Albumin/Globulin Ratio 1.2 Triglycerides Cholesterol LDL Cholesterol Direct HDL Cholesterol Arterial Blood Potassium Blood Type Antibody Screen
[2018-05-25] MEDS ORDERED: Sodium Chloride 0.9% 1,000 ML IV SCH (22:00)
[2018-05-25] MEDS ORDERED: Lidocaine 2 Grams in D5W 2,000 MG/500 ML BAG IV SCH (23:45)
[2018-05-26] MEDS: (Novolin R) Insulin Human Regular 100 units/ml vial SC SCH ×2 (00:14→06:41)
[2018-05-26] MEDS ORDERED: Piperacillin/Tazobact 3.375 GM in Sodium Chloride 100 ML IVPB SCH (00:15)
[2018-05-26] MEDS ORDERED: Albuterol-Ipratrop 3 mg / 0.5 (3 ml) UD INH SCH (02:00)
[2018-05-26 05:32] LABS: ARTERIAL BLOOD GAS HCO3 23.5 mmol/L (21-28); ARTERIAL BLOOD GAS HEMOGLOBIN 10.3 g/dL (11.7-17.4); ARTERIAL BLOOD GAS O2 SAT 99.8 % (95-98); ARTERIAL BLOOD GAS PCO2 22 mm/Hg (35-45); ARTERIAL BLOOD GAS PH 7.55 (7.35-7.45); ARTERIAL BLOOD GAS PO2 485 mm/Hg (80-100); ARTERIAL BLOOD GAS TCO2 19.9 mmol/L (22-28)
[2018-05-26 06:15] LABS: BASO # 0.1 K/uL (0.0-0.2); BASO % 0.8 % (0.0-2.0); EOS # 0.2 K/uL (0.0-0.7); EOS % 1.9 % (0.0-4.0); HEMOGLOBIN 12.1 g/dL (11.0-16.0); LYMPH # 2.8 K/uL (1.0-4.3); LYMPH % 26.5 % (20.0-40.0); MEAN CELL VOLUME 83.8 fL (81.0-99.0); MEAN CORPUSCULAR HEMOGLOBIN 28.5 pg (27.0-31.0); MEAN PLATELET VOLUME 7.6 fL (7.2-11.7); MONO # 0.8 K/uL (0.0-0.8); MONO % 7.4 % (0.0-10.0); NEUT # 6.8 K/uL (1.8-7.0); NEUT % 63.4 % (50.0-75.0); RBC 4.25 Mil/uL (3.80-5.20); RED CELL DISTRIBUTION WIDTH 13.8 % (11.5-14.5); WHITE BLOOD COUNT 10.7 K/uL (4.8-10.8)
[2018-05-26 06:31] LABS: ALB/GLOB RATIO 1.1 (1.0-2.1); ALBUMIN 3.1 g/dL (3.5-5.0); ALT/SGPT 50 U/L (9-52); AST/SGOT 84 U/L (14-36); BLOOD UREA NITROGEN 9 mg/dL (7-17); CALCIUM 8.7 mg/dl (8.6-10.4); GFR NON-AFRICAN AMERICAN > 60
--- NOTE | 2018-05-26 06:31 | CP.PCM.CON ---
History of Present Illness - History of Present Illness History of Present Illness: Patient seen and evaluated S/P V Tach resuscitated by criminal investigator customs On Ventilator Offered cardiac cath and TVP Family wanted conservative medical management Cath cancelled CAD medical management D/W criminal [employer] Past Patient History - Past Medical History & Family History Past Medical History?: Yes - Past Social History Smoking Status: Never Smoked - CARDIAC Hx Hypertension: Yes - PULMONARY Hx Asthma: Yes - NEUROLOGICAL Hx Neurological Disorder: No - HEENT Hx HEENT Problems: No - RENAL Hx Chronic Kidney Disease: No - ENDOCRINE/METABOLIC Hx Diabetes Mellitus Type 2: Yes - HEMATOLOGICAL/ONCOLOGICAL Hx Blood Disorders: No - INTEGUMENTARY Hx Dermatological Problems: No - MUSCULOSKELETAL/RHEUMATOLOGICAL Hx Musculoskeletal Disorders: No - GASTROINTESTINAL Hx Gastrointestinal Disorders: No - GENITOURINARY/GYNECOLOGICAL Hx Genitourinary Disorders: No - PSYCHIATRIC Hx Substance Use: No - SURGICAL HISTORY Hx Surgeries: Yes Other/Comment: Surgical scar to abdomen - ANESTHESIA Hx Malignant Hyperthermia: No Meds Allergies/Adverse Reactions: Allergies Allergy/AdvReac Type Severity Reaction Status Date / Time No Known Allergies Allergy Verified 05/25/18 11:48 - Medications Medications: Current Medications Albuterol/Ipratropium (Duoneb 3 Mg/0.5 Mg (3 Ml) Ud) 3 ml INH RQ6 MAG Dextrose (Dextrose 50% Inj) 0 ml IV STAT PRN; Protocol PRN Reason: Hypoglycemia Protocol Dextrose (Glutose 15) 0 gm PO ONCE PRN; Protocol PRN Reason: Hypoglycemia Protocol Glucagon (Glucagen Diagnostic Kit) 0 mg IM STAT PRN; Protocol PRN Reason: Hypoglycemia Protocol Heparin Sodium/Sodium Chloride (Heparin 19945 Units/250ml 1/2 Normal Saline) 25,000 units in 250 mls @ 7.752 mls/hr IV .Q24H MAG; Protocol Last Titration: 05/25/18 21:00 Dose: 12.07 units/kg/hr, 7.8 mls/hr Dextrose (Dextrose 5% In Water 1000 Ml) 1,000 mls @ 0 mls/hr IV .Q0M PRN; Protocol PRN Reason: Hypoglycemia Protocol Nitroglycerin/Dextrose (Nitroglycerin 50 Mg/250 Ml D5w) 50 mg in 250 mls @ 15 m ls/hr IV .[id number] MAG; Protocol Last Titration: 05/25/18 18:35 Dose: 0 mcg/min, 0 mls/hr Midazolam HCl 100 mg/ Dextrose 100 mls @ 1.29 mls/hr IV .Q24H MAG; Protocol Last Titration: 05/26/18 06:00 Dose: 0.08 mg/kg/hr, 5.17 mls/hr Sodium Chloride (Sodium Chloride 0.9%) 1,000 mls @ 50 mls/hr IV .Q20H MAG Last Admin: 05/25/18 22:00 Dose: 50 mls/hr Fentanyl Citrate 2,500 mcg/ (Sodium Chloride) 250 mls @ 12.92 mls/hr IV .[id number] MAG; Protocol Last Admin: 05/25/18 23:56 Dose: 1 mcg/kg/hr, 6.46 mls/hr Lidocaine HCl/Dextrose (Lidocaine 2 Grams In D5w) 2,000 mg in 500 mls @ 15 mls/hr IV .Q24H MAG; Protocol Last Admin: 05/26/18 00:00 Dose: 1 mg/min, 15 mls/hr Piperacillin Sod/Tazobactam (Sod 3.375 gm/ Sodium Chloride) 100 mls @ 200 mls/hr IVPB Q8H MAG; Protocol Last Admin: 05/26/18 00:48 Dose: 200 mls/hr Norepinephrine Bitartrate 4 mg (/ Dextrose) 254 mls @ 15.24 mls/hr IV .[id number] PRN; Protocol PRN Reason: TITRATE PER MD ORDER Last Titration: 05/26/18 06:00 Dose: 0 mcg/min, 0 mls/hr Insulin Human Regular (Novolin R) 0 unit SC Q6H MAG; Protocol Last Admin: 05/26/18 00:14 Dose: Not Given Lorazepam (Ativan) 2 mg IVP Q6H PRN PRN Reason: Agitation Last Admin: 05/25/18 20:23 Dose: 2 mg Pantoprazole Sodium (Protonix Ec Tab) 40 mg PO DAILY MAG Pantoprazole Sodium (Protonix Inj) 40 mg IVP DAILY MAG Rosuvastatin Calcium (Crestor) 10 mg PO HS MAG Last Admin: 05/25/18 22:13 Dose: Not Given Results - Vital Signs Recent Vital Signs: Last Vital Signs Temp 98.4 F 05/25/18 20:00 Pulse 44 L 12/14/18 06:00 Resp 20 05/26/18 06:00 BP 115/55 L 05/26/18 05:54 Pulse Ox 91 L 05/26/18 00:45 - Labs Result Diagrams: 05/26/18 05:56 05/25/18 21:11 Labs: Laboratory Results - last 24 hr 05/25/18 05/25/18 05/25/18 11:41 11:55 11:55 WBC 11.6 H RBC 4.81 Hgb 13.9 Hct 40.8 MCV 84.9 MCH 28.9 MCHC 34.0 RDW 14.0 Plt Count 342 MPV 7.3 Neut % (Auto) 77.4 H Lymph % (Auto) 13.2 L [place] % (Auto) 6.9 Eos % (Auto) 1.8 Baso % (Auto) 0.7 Neut # (Auto) 9.0 H Lymph # (Auto) 1.5 [place] # (Auto) 0.8 Eos # (Auto) 0.2 Baso # (Auto) 0.1 PT 11.6 INR 1.1 APTT 34 Puncture Site pCO2 pO2 HCO3 ABG pH ABG Total CO2 ABG O2 Saturation ABG Base Excess ABG Hemoglobin ABG Carboxyhemoglobin POC ABG HHb (Measured) ABG Methemoglobin Garfield Test ABG Potassium A-a O2 Difference Respiratory Index Hgb O2 Saturation Glucose Lactate Vent Mode Mechanical Rate FiO2 Tidal Volume PEEP Sodium Potassium Chloride Carbon Dioxide Anion Gap BUN Creatinine Est GFR ( Amer) Est GFR (Non-Af Amer) POC Glucose (mg/dL) 198 H Random Glucose Hemoglobin A1c Calcium Phosphorus Magnesium Total Bilirubin AST ALT Alkaline Phosphatase Troponin I Total Protein Albumin Globulin Albumin/Globulin Ratio Triglycerides Cholesterol LDL Cholesterol Direct HDL Cholesterol TSH 3rd Generation Arterial Blood Potassium Blood Type Antibody Screen 05/25/18 05/25/18 05/25/18 11:55 11:55 11:55 WBC RBC Hgb Hct MCV MCH MCHC RDW Plt Count MPV Neut % (Auto) Lymph % (Auto) [place] % (Auto) Eos % (Auto) Baso % (Auto) Neut # (Auto) Lymph # (Auto) [place] # (Auto) Eos # (Auto) Baso # (Auto) PT INR APTT Puncture Site pCO2 pO2 HCO3 ABG pH ABG Total CO2 ABG O2 Saturation ABG Base Excess ABG Hemoglobin ABG Carboxyhemoglobin POC ABG HHb (Measured) ABG Methemoglobin Garfield Test ABG Potassium A-a O2 Difference Respiratory Index Hgb O2 Saturation Glucose Lactate Vent Mode Mechanical Rate FiO2 Tidal Volume PEEP Sodium 133 Potassium 3.5 L Chloride 89 L Carbon Dioxide 32 H Anion Gap 15 BUN 8 Creatinine 0.4 L Est GFR ( Amer) > 60 Est GFR (Non-Af Amer) > 60 POC Glucose (mg/dL) Random Glucose 195 H Hemoglobin A1c 7.8 H Calcium 10.1 Phosphorus Magnesium Total Bilirubin 0.5 AST 26 ALT 23 Alkaline Phosphatase 92 Troponin I 0.5910 H* Total Protein 7.7 Albumin 4.2 Globulin 3.5 Albumin/Globulin Ratio 1.2 Triglycerides 208 H Cholesterol 141 LDL Cholesterol Direct 74 HDL Cholesterol 47 TSH 3rd Generation Arterial Blood Potassium Blood Type B POSITIVE Antibody Screen Negative 05/25/18 05/25/18 05/25/18 14:53 17:46 19:45 WBC RBC Hgb Hct MCV MCH MCHC RDW Plt Count MPV Neut % (Auto) Lymph % (Auto) [place] % (Auto) Eos % (Auto) Baso % (Auto) Neut # (Auto) Lymph # (Auto) [place] # (Auto) Eos # (Auto) Baso # (Auto) PT INR APTT Puncture Site Lra pCO2 33 L pO2 470 H HCO3 27.3 ABG pH 7.50 H ABG Total CO2 26.7 ABG O2 Saturation 99.8 H ABG Base Excess 2.9 ABG Hemoglobin ABG Carboxyhemoglobin POC ABG HHb (Measured) ABG Methemoglobin Garfield Test Pos ABG Potassium 3.1 L A-a O2 Difference 202.0 Respiratory Index 0.4 Hgb O2 Saturation Glucose 189 H Lactate 3.5 H Vent Mode Prvc Mechanical Rate 20 FiO2 100.0 Tidal Volume 500 PEEP 5 Sodium 131.0 L Potassium Chloride 99.0 Carbon Dioxide Anion Gap BUN Creatinine Est GFR ( Amer) Est GFR (Non-Af Amer) POC Glucose (mg/dL) 153 H Random Glucose Hemoglobin A1c Calcium Phosphorus Magnesium Total Bilirubin AST ALT Alkaline Phosphatase Troponin I 0.5920 H* Total Protein Albumin Globulin Albumin/Globulin Ratio Triglycerides Cholesterol LDL Cholesterol Direct HDL Cholesterol TSH 3rd Generation Arterial Blood Potassium 3.1 L Blood Type Antibody Screen 05/25/18 05/25/18 05/25/18 20:20 21:11 21:11 WBC 10.8 RBC 4.66 Hgb 13.4 Hct 39.2 MCV 84.1 MCH 28.8 MCHC 34.2 RDW 14.2 Plt Count 355 MPV 7.6 Neut % (Auto) 77.5 H Lymph % (Auto) 15.8 L [place] % (Auto) 5.4 Eos % (Auto) 0.6 Baso % (Auto) 0.7 Neut # (Auto) 8.4 H Lymph # (Auto) 1.7 [place] # (Auto) 0.6 Eos # (Auto) 0.1 Baso # (Auto) 0.1 PT INR APTT Puncture Site pCO2 pO2 HCO3 ABG pH ABG Total CO2 ABG O2 Saturation ABG Base Excess ABG Hemoglobin ABG Carboxyhemoglobin POC ABG HHb (Measured) ABG Methemoglobin Garfield Test ABG Potassium A-a O2 Difference Respiratory Index Hgb O2 Saturation Glucose Lactate Vent Mode Mechanical Rate FiO2 Tidal Volume PEEP Sodium 130 L Potassium 3.6 Chloride 87 L Carbon Dioxide 29 Anion Gap 18 BUN 9 Creatinine 0.5 L Est GFR ( Amer) > 60 Est GFR (Non-Af Amer) > 60 POC Glucose (mg/dL) 186 H Random Glucose 218 H Hemoglobin A1c Calcium 9.7 Phosphorus 3.5 Magnesium 2.3 Total Bilirubin 1.0 AST 76 H D ALT 30 Alkaline Phosphatase 85 Troponin I 0.6090 H* Total Protein 7.1 Albumin 3.9 Globulin 3.3 Albumin/Globulin Ratio 1.2 Triglycerides Cholesterol LDL Cholesterol Direct HDL Cholesterol TSH 3rd Generation 2.93 Arterial Blood Potassium Blood Type Antibody Screen 05/25/18 05/26/18 05/26/18 23:21 05:21 05:56 WBC 10.7 RBC 4.25 Hgb 12.1 Hct 35.6 MCV 83.8 MCH 28.5 MCHC 34.0 RDW 13.8 Plt Count 316 MPV 7.6 Neut % (Auto) 63.4 Lymph % (Auto) 26.5 [place] % (Auto) 7.4 Eos % (Auto) 1.9 Baso % (Auto) 0.8 Neut # (Auto) 6.8 Lymph # (Auto) 2.8 [place] # (Auto) 0.8 Eos # (Auto) 0.2 Baso # (Auto) 0.1 PT INR APTT Puncture Site Lb pCO2 22 L pO2 485 H HCO3 23.5 ABG pH 7.55 H ABG Total CO2 19.9 L ABG O2 Saturation 99.8 H ABG Base Excess -1.9 ABG Hemoglobin 10.3 L ABG Carboxyhemoglobin 1.2 POC ABG HHb (Measured) 0.2 ABG Methemoglobin 1.6 Garfield Test Na ABG Potassium A-a O2 Difference 201.0 Respiratory Index 0.4 Hgb O2 Saturation 97.0 Glucose Lactate Vent Mode Prvc Mechanical Rate 20 FiO2 100.0 Tidal Volume 500 PEEP 5 Sodium Potassium Chloride Carbon Dioxide Anion Gap BUN Creatinine Est GFR ( Amer) Est GFR (Non-Af Amer) POC Glucose (mg/dL) 148 H Random Glucose Hemoglobin A1c Calcium Phosphorus Magnesium Total Bilirubin AST ALT Alkaline Phosphatase Troponin I Total Protein Albumin Globulin Albumin/Globulin Ratio Triglycerides Cholesterol LDL Cholesterol Direct HDL Cholesterol TSH 3rd Generation Arterial Blood Potassium Blood Type Antibody Screen
--- NOTE | 2018-05-26 07:18 | CARD ---
APPROVED REPORT Date of service: 05/25/2018 EKG Measurement Heart [id number] <Conclusion> Poor data quality, interpretation may be adversely affected Wide QRS rhythm likely sinus tachycardia Left bundle branch block Abnormal ECG
[2018-05-26 08:39] LABS: URINE BILIRUBIN NEGATIVE (NEGATIVE); URINE BLOOD NEGATIVE (NEGATIVE); URINE CLARITY Clear (Clear); URINE COLOR Yellow (YELLOW); URINE GLUCOSE (UA) NORMAL (Normal); URINE LEUKOCYTE ESTERASE NEG Leu/uL (Negative); URINE PROTEIN 2+ mg/dL (NEGATIVE); URINE UROBILINOGEN NORMAL mg/dL (0.2-1.0)
--- NOTE | 2018-05-26 09:22 | CT ---
Date of service: 05/25/2018 PROCEDURE: CT HEAD WITHOUT CONTRAST. HISTORY: s/p Code blue, ischemia COMPARISON: None available. TECHNIQUE: Axial computed tomography images were obtained through the head/brain without intravenous contrast. Radiation dose: Total exam DLP = 1255.15 mGy-cm. This CT exam was performed using one or more of the following dose reduction techniques: Automated exposure control, adjustment of the mA and/or kV according to patient size, and/or use of iterative reconstruction technique. FINDINGS: HEMORRHAGE: No intracranial hemorrhage. BRAIN: There is symmetric ill-defined low-attenuation in bilateral basal ganglia. There is loss of triplett-white matter differentiation. No mass, mass effect or abnormal extra-axial fluid collection. VENTRICLES: There is mild age-related global parenchymal volume loss and proportionate enlargement of the ventricles and cortical sulci. CALVARIUM: There is no calvarial fracture or extracranial soft tissue swelling. PARANASAL SINUSES: There fluid in the right maxillary sinus and a retention cyst/polyp in the left maxillary sinus. The remaining included paranasal sinuses are predominantly clear. The mastoid air cells are clear. MASTOID AIR CELLS: Predominantly clear. OTHER FINDINGS: Endotracheal tube remains in place. IMPRESSION: 1. 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 2. Loss of triplett-white matter differentiation likely related to cerebral edema.
--- NOTE | 2018-05-26 09:34 | RAD ---
Date of service: 05/25/2018 HISTORY: s/p code kate COMPARISON: 05/25/2018 FINDINGS: Endotracheal tube terminates 1.8 cm proximal to the britton. LUNGS: The lungs are well inflated and clear. PLEURA: No pleural effusions or pneumothorax. CARDIOVASCULAR: Persistent mild cardiomegaly. Atherosclerotic aortic arch calcifications are present. OSSEOUS STRUCTURES: Within normal limits for the patient's age. VISUALIZED UPPER ABDOMEN: Normal. OTHER FINDINGS: None. IMPRESSION: Endotracheal tube terminates 1.8 cm proximal to the britton. No acute findings.
--- NOTE | 2018-05-26 09:46 | RAD ---
Date of service: 05/26/2018 HISTORY: on vent COMPARISON: 05/25/2018 FINDINGS: Endotracheal tube terminates 1 cm proximal to the britton LUNGS: The lungs are well inflated and clear. There is mild pulmonary venous congestion. PLEURA: No pleural effusions or pneumothorax. CARDIOVASCULAR: There is mild cardiomegaly. Atherosclerotic aortic arch calcifications are present. OSSEOUS STRUCTURES: Within normal limits for the patient's age. 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 VISUALIZED UPPER ABDOMEN: Normal. OTHER FINDINGS: None. IMPRESSION: Stable position of endotracheal tube. No significant interval change.
[2018-05-26] MEDS ORDERED: Pantoprazole 40 mg EC Tab PO SCH (10:00)
--- NOTE | 2018-05-26 10:58 | CP.CCUPN ---
<Jeyson Salmeron - Last Filed: 05/26/18 11:27> CCU Subjective - Physician Review Subjective (Free Text): 05/26/18 11:00 Patient seen and examined at bedside. Patient had 2 code blues overnight. Family is at bedside and patient's code status is now DNR/DNI. Patient terminally extubated at 10:15AM. Patient is on Fentanyl drip. Critical Care Time Spent (in minutes): 35 CCU Objective - Vital Signs / Intake & Output Intake and Output (Last 8hrs): Intake & Output 05/25/18 05/26/18 05/26/18 22:59 06:59 14:59 Intake Total 1258.5 2071.80 79.6 Output Total 0 Balance 1258.5 2071.80 79.6 Weight 64.6 kg 65 kg Intake: IV 82.2 110.30 0.3 Intake, IV Amount 1176.3 1961.5 79.3 Left Forearm 27 RF TLC 105 15 Right Antecubital 38.7 62.4 7.8 Right Distal Port Femoral 1000 1425 50 Right Distal Port Femoral 100 263.8 0 Y site Right Medial Port Femoral 10.6 59.8 0 TLC RF 45.5 6.5 Oral 0 0 0 Output: Emesis 0 Oral Regurgitation 0 Other: # Voids Urine, Voided 0 0 0 # Bowel Movements 0 0 0 - Physical Exam Physical Exam Limitations: Positive for: Other (sedated) Head: Positive for: Atraumatic, Normocephalic Conjunctiva: Positive for: Normal Respiratory/Chest: Positive for: Clear to Auscultation. Negative for: Respiratory Distress, Accessory Muscle Use Cardiovascular: Positive for: Bradycardic, Other (distant heart sounds) Abdomen: Positive for: Normal Bowel Sounds. Negative for: Distention Upper Extremity: Positive for: Normal Inspection Lower Extremity: Positive for: Normal Inspection Neurological: Negative for: GCS=15 Skin: Positive for: Dry, Cold. Negative for: Warm - Medications Active Medications: Active Medications Generic Name Dose Route Start Last Admin Trade Name Freq PRN Reason Stop Dose Admin Fentanyl Citrate 2,500 mcg/ 250 mls @ 12.92 mls/hr 05/25/18 23:30 05/25/18 23:56 Sodium Chloride IV 1 mcg/kg/hr .[id number] MAG 6.46 mls/hr Administration Protocol 2 MCG/KG/HR - Patient Studies Lab Studies: Lab Studies 05/26/18 05/26/18 05/26/18 Range/Units 08:27 06:39 05:56 WBC (4.8-10.8) K/uL RBC (3.80-5.20) Mil/uL Hgb (11.0-16.0) g/dL Hct (34.0-47.0) % MCV (81.0-99.0) fL MCH (27.0-31.0) pg MCHC (33.0-37.0) g/dL RDW (11.5-14.5) % Plt Count (130-400) K/uL MPV (7.2-11.7) fL Neut % (Auto) (50.0-75.0) % Lymph % (Auto) (20.0-40.0) % Finney % (Auto) (0.0-10.0) % Eos % (Auto) (0.0-4.0) % Baso % (Auto) (0.0-2.0) % Neut # (Auto) (1.8-7.0) K/uL Lymph # (Auto) (1.0-4.3) K/uL Finney # (Auto) (0.0-0.8) K/uL Eos # (Auto) (0.0-0.7) K/uL Baso # (Auto) (0.0-0.2) K/uL PT (9.7-12.2) SECONDS INR APTT 56 H D (21-34) SECONDS Puncture Site pCO2 (35-45) mm/Hg pO2 (80-100) mm/Hg HCO3 (21-28) mmol/L ABG pH (7.35-7.45) ABG Total CO2 (22-28) mmol/L ABG O2 Saturation (95-98) % ABG Base Excess (-2.0-3.0) mmol/L ABG Hemoglobin (11.7-17.4) g/dL ABG Carboxyhemoglobin (0.5-1.5) % POC ABG HHb (Measured) (0.0-5.0) % ABG Methemoglobin (0.0-3.0) % Garfield Test ABG Potassium (3.6-5.2) mmol/L A-a O2 Difference mm/Hg Respiratory Index Hgb O2 Saturation (95.0-98.0) % Glucose (65-105) mg/dl Lactate (0.7-2.1) mmol/L Vent Mode Mechanical Rate FiO2 % Tidal Volume PEEP Sodium (132-148) mmol/L Potassium (3.6-5.2) mmol/L Chloride (98-107) mmol/L Carbon Dioxide (22-30) mmol/L Anion Gap (10-20) BUN (7-17) mg/dL Creatinine (0.7-1.2) mg/dL Est GFR ( Amer) Est GFR (Non-Af Amer) POC Glucose (mg/dL) 144 H (65-110) mg/dL Random Glucose (65-105) mg/dL Hemoglobin A1c (4.2-6.5) % Calcium (8.6-10.4) mg/dl Phosphorus (2.5-4.5) mg/dL Magnesium (1.6-2.3) mg/dL Total Bilirubin (0.2-1.3) mg/dL AST (14-36) U/L ALT (9-52) U/L Alkaline Phosphatase (38-126) U/L Troponin I (0.00-0.120) ng/mL Total Protein (6.3-8.3) g/dL Albumin (3.5-5.0) g/dL Globulin (2.2-3.9) gm/dL Albumin/Globulin Ratio (1.0-2.1) Triglycerides (0-149) mg/dL Cholesterol (0-199) mg/dL LDL Cholesterol Direct (0-129) mg/dL HDL Cholesterol (30-70) mg/dL TSH 3rd Generation (0.46-4.68) mIU/L Arterial Blood Potassium (3.6-5.2) mmol/L Urine Color Yellow (YELLOW) Urine Clarity Clear (Clear) Urine pH 7.0 (5.0-8.0) Ur Specific [place] 1.028 (1.003-1.030) Urine Protein 2+ H (NEGATIVE) mg/dL Urine Glucose (UA) Normal (Normal) mg/dL Urine Ketones Trace (NEGATIVE) mg/dL Urine Blood Negative (NEGATIVE) Urine Nitrate Negative (NEGATIVE) Urine Bilirubin Negative (NEGATIVE) Urine Urobilinogen Normal (0.2-1.0) mg/dL Ur Leukocyte Esterase Neg (Negative) Mikel/uL Urine WBC (Auto) 1 (0-5) /hpf Urine RBC (Auto) 1 (0-3) /hpf Blood Type Antibody Screen 05/26/18 05/26/18 05/26/18 Range/Units 05:56 05:56 05:21 WBC 10.7 (4.8-10.8) K/uL RBC 4.25 (3.80-5.20) Mil/uL Hgb 12.1 (11.0-16.0) g/dL Hct 35.6 (34.0-47.0) % MCV 83.8 (81.0-99.0) fL MCH 28.5 (27.0-31.0) pg MCHC 34.0 (33.0-37.0) g/dL RDW 13.8 (11.5-14.5) % Plt Count 316 (130-400) K/uL MPV 7.6 (7.2-11.7) fL Neut % (Auto) 63.4 (50.0-75.0) % Lymph % (Auto) 26.5 (20.0-40.0) % Finney % (Auto) 7.4 (0.0-10.0) % Eos % (Auto) 1.9 (0.0-4.0) % Baso % (Auto) 0.8 (0.0-2.0) % Neut # (Auto) 6.8 (1.8-7.0) K/uL Lymph # (Auto) 2.8 (1.0-4.3) K/uL Finney # (Auto) 0.8 (0.0-0.8) K/uL Eos # (Auto) 0.2 (0.0-0.7) K/uL Baso # (Auto) 0.1 (0.0-0.2) K/uL PT (9.7-12.2) SECONDS INR APTT (21-34) SECONDS Puncture Site Lb pCO2 22 L (35-45) mm/Hg pO2 485 H (80-100) mm/Hg HCO3 23.5 (21-28) mmol/L ABG pH 7.55 H (7.35-7.45) ABG Total CO2 19.9 L (22-28) mmol/L ABG O2 Saturation 99.8 H (95-98) % ABG Base Excess -1.9 (-2.0-3.0) mmol/L ABG Hemoglobin 10.3 L (11.7-17.4) g/dL ABG Carboxyhemoglobin 1.2 (0.5-1.5) % POC ABG HHb (Measured) 0.2 (0.0-5.0) % ABG Methemoglobin 1.6 (0.0-3.0) % Garfield Test Na ABG Potassium (3.6-5.2) mmol/L A-a O2 Difference 201.0 mm/Hg Respiratory Index 0.4 Hgb O2 Saturation 97.0 (95.0-98.0) % Glucose (65-105) mg/dl Lactate (0.7-2.1) mmol/L Vent Mode Prvc Mechanical Rate 20 FiO2 100.0 % Tidal Volume 500 PEEP 5 Sodium 132 (132-148) mmol/L Potassium 3.9 (3.6-5.2) mmol/L Chloride 100 (98-107) mmol/L Carbon Dioxide 23 (22-30) mmol/L Anion Gap 13 (10-20) BUN 9 (7-17) mg/dL Creatinine 0.5 L (0.7-1.2) mg/dL Est GFR ( Amer) > 60 Est GFR (Non-Af Amer) > 60 POC Glucose (mg/dL) (65-110) mg/dL Random Glucose 165 H (65-105) mg/dL Hemoglobin A1c (4.2-6.5) % Calcium 8.7 (8.6-10.4) mg/dl Phosphorus 2.0 L (2.5-4.5) mg/dL Magnesium 1.9 (1.6-2.3) mg/dL Total Bilirubin 1.1 (0.2-1.3) mg/dL AST 84 H (14-36) U/L ALT 50 (9-52) U/L Alkaline Phosphatase 74 (38-126) U/L Troponin I (0.00-0.120) ng/mL Total Protein 5.8 L (6.3-8.3) g/dL Albumin 3.1 L D (3.5-5.0) g/dL Globulin 2.7 (2.2-3.9) gm/dL Albumin/Globulin Ratio 1.1 (1.0-2.1) Triglycerides (0-149) mg/dL Cholesterol (0-199) mg/dL LDL Cholesterol Direct (0-129) mg/dL HDL Cholesterol (30-70) mg/dL TSH 3rd Generation 2.36 (0.46-4.68) mIU/L Arterial Blood Potassium (3.6-5.2) mmol/L Urine Color (YELLOW) Urine Clarity (Clear) Urine pH (5.0-8.0) Ur Specific [place] (1.003-1.030) Urine Protein (NEGATIVE) mg/dL Urine Glucose (UA) (Normal) mg/dL Urine Ketones (NEGATIVE) mg/dL Urine Blood (NEGATIVE) Urine Nitrate (NEGATIVE) Urine Bilirubin (NEGATIVE) Urine Urobilinogen (0.2-1.0) mg/dL Ur Leukocyte Esterase (Negative) Mikel/uL Urine WBC (Auto) (0-5) /hpf Urine RBC (Auto) (0-3) /hpf Blood Type Antibody Screen 05/25/18 05/25/18 05/25/18 Range/Units 23:21 21:11 21:11 WBC 10.8 (4.8-10.8) K/uL RBC 4.66 (3.80-5.20) Mil/uL Hgb 13.4 (11.0-16.0) g/dL Hct 39.2 (34.0-47.0) % MCV 84.1 (81.0-99.0) fL MCH 28.8 (27.0-31.0) pg MCHC 34.2 (33.0-37.0) g/dL RDW 14.2 (11.5-14.5) % Plt Count 355 (130-400) K/uL MPV 7.6 (7.2-11.7) fL Neut % (Auto) 77.5 H (50.0-75.0) % Lymph % (Auto) 15.8 L (20.0-40.0) % [place]ney % (Auto) 5.4 (0.0-10.0) % Eos % (Auto) 0.6 (0.0-4.0) % Baso % (Auto) 0.7 (0.0-2.0) % Neut # (Auto) 8.4 H (1.8-7.0) K/uL Lymph # (Auto) 1.7 (1.0-4.3) K/uL Finney # (Auto) 0.6 (0.0-0.8) K/uL Eos # (Auto) 0.1 (0.0-0.7) K/uL Baso # (Auto) 0.1 (0.0-0.2) K/uL PT (9.7-12.2) SECONDS INR APTT (21-34) SECONDS Puncture Site pCO2 (35-45) mm/Hg pO2 (80-100) mm/Hg HCO3 (21-28) mmol/L ABG pH (7.35-7.45) ABG Total CO2 (22-28) mmol/L ABG O2 Saturation (95-98) % ABG Base Excess (-2.0-3.0) mmol/L ABG Hemoglobin (11.7-17.4) g/dL ABG Carboxyhemoglobin (0.5-1.5) % POC ABG HHb (Measured) (0.0-5.0) % ABG Methemoglobin (0.0-3.0) % Garfield Test ABG Potassium (3.6-5.2) mmol/L A-a O2 Difference mm/Hg Respiratory Index Hgb O2 Saturation (95.0-98.0) % Glucose (65-105) mg/dl Lactate (0.7-2.1) mmol/L Vent Mode Mechanical Rate FiO2 % Tidal Volume PEEP Sodium 130 L (132-148) mmol/L Potassium 3.6 (3.6-5.2) mmol/L Chloride 87 L (98-107) mmol/L Carbon Dioxide 29 (22-30) mmol/L Anion Gap 18 (10-20) BUN 9 (7-17) mg/dL Creatinine 0.5 L (0.7-1.2) mg/dL Est GFR ( Amer) > 60 Est GFR (Non-Af Amer) > 60 POC Glucose (mg/dL) 148 H (65-110) mg/dL Random Glucose 218 H (65-105) mg/dL Hemoglobin A1c (4.2-6.5) % Calcium 9.7 (8.6-10.4) mg/dl Phosphorus 3.5 (2.5-4.5) mg/dL Magnesium 2.3 (1.6-2.3) mg/dL Total Bilirubin 1.0 (0.2-1.3) mg/dL AST 76 H D (14-36) U/L ALT 30 (9-52) U/L Alkaline Phosphatase 85 (38-126) U/L Troponin I 0.6090 H* (0.00-0.120) ng/mL Total Protein 7.1 (6.3-8.3) g/dL Albumin 3.9 (3.5-5.0) g/dL Globulin 3.3 (2.2-3.9) gm/dL Albumin/Globulin Ratio 1.2 (1.0-2.1) Triglycerides (0-149) mg/dL Cholesterol (0-199) mg/dL LDL Cholesterol Direct (0-129) mg/dL HDL Cholesterol (30-70) mg/dL TSH 3rd Generation 2.93 (0.46-4.68) mIU/L Arterial Blood Potassium (3.6-5.2) mmol/L Urine Color (YELLOW) Urine Clarity (Clear) Urine pH (5.0-8.0) Ur Specific [place] (1.003-1.030) Urine Protein (NEGATIVE) mg/dL Urine Glucose (UA) (Normal) mg/dL Urine Ketones (NEGATIVE) mg/dL Urine Blood (NEGATIVE) Urine Nitrate (NEGATIVE) Urine Bilirubin (NEGATIVE) Urine Urobilinogen (0.2-1.0) mg/dL Ur Leukocyte Esterase (Negative) Mikel/uL Urine WBC (Auto) (0-5) /hpf Urine RBC (Auto) (0-3) /hpf Blood Type Antibody Screen 05/25/18 05/25/18 05/25/18 Range/Units 20:20 19:45 17:46 WBC (4.8-10.8) K/uL RBC (3.80-5.20) Mil/uL Hgb (11.0-16.0) g/dL Hct (34.0-47.0) % MCV (81.0-99.0) fL MCH (27.0-31.0) pg MCHC (33.0-37.0) g/dL RDW (11.5-14.5) % Plt Count (130-400) K/uL MPV (7.2-11.7) fL Neut % (Auto) (50.0-75.0) % Lymph % (Auto) (20.0-40.0) % [place] % (Auto) (0.0-10.0) % Eos % (Auto) (0.0-4.0) % Baso % (Auto) (0.0-2.0) % Neut # (Auto) (1.8-7.0) K/uL Lymph # (Auto) (1.0-4.3) K/uL [place]ney # (Auto) (0.0-0.8) K/uL Eos # (Auto) (0.0-0.7) K/uL Baso # (Auto) (0.0-0.2) K/uL PT (9.7-12.2) SECONDS INR APTT (21-34) SECONDS Puncture Site Lra pCO2 33 L (35-45) mm/Hg pO2 470 H (80-100) mm/Hg HCO3 27.3 (21-28) mmol/L ABG pH 7.50 H (7.35-7.45) ABG Total CO2 26.7 (22-28) mmol/L ABG O2 Saturation 99.8 H (95-98) % ABG Base Excess 2.9 (-2.0-3.0) mmol/L ABG Hemoglobin (11.7-17.4) g/dL ABG Carboxyhemoglobin (0.5-1.5) % POC ABG HHb (Measured) (0.0-5.0) % ABG Methemoglobin (0.0-3.0) % Garfield Test Pos ABG Potassium 3.1 L (3.6-5.2) mmol/L A-a O2 Difference 202.0 mm/Hg Respiratory Index 0.4 Hgb O2 Saturation (95.0-98.0) % Glucose 189 H (65-105) mg/dl Lactate 3.5 H (0.7-2.1) mmol/L Vent Mode Prvc Mechanical Rate 20 FiO2 100.0 % Tidal Volume 500 PEEP 5 Sodium 131.0 L (132-148) mmol/L Potassium (3.6-5.2) mmol/L Chloride 99.0 (98-107) mmol/L Carbon Dioxide (22-30) mmol/L Anion Gap (10-20) BUN (7-17) mg/dL Creatinine (0.7-1.2) mg/dL Est GFR ( Amer) Est GFR (Non-Af Amer) POC Glucose (mg/dL) 186 H 153 H (65-110) mg/dL Random Glucose (65-105) mg/dL Hemoglobin A1c (4.2-6.5) % Calcium (8.6-10.4) mg/dl Phosphorus (2.5-4.5) mg/dL Magnesium (1.6-2.3) mg/dL Total Bilirubin (0.2-1.3) mg/dL AST (14-36) U/L ALT (9-52) U/L Alkaline Phosphatase (38-126) U/L Troponin I (0.00-0.120) ng/mL Total Protein (6.3-8.3) g/dL Albumin (3.5-5.0) g/dL Globulin (2.2-3.9) gm/dL Albumin/Globulin Ratio (1.0-2.1) Triglycerides (0-149) mg/dL Cholesterol (0-199) mg/dL LDL Cholesterol Direct (0-129) mg/dL HDL Cholesterol (30-70) mg/dL TSH 3rd Generation (0.46-4.68) mIU/L Arterial Blood Potassium 3.1 L (3.6-5.2) mmol/L Urine Color (YELLOW) Urine Clarity (Clear) Urine pH (5.0-8.0) Ur Specific [place] (1.003-1.030) Urine Protein (NEGATIVE) mg/dL Urine Glucose (UA) (Normal) mg/dL Urine Ketones (NEGATIVE) mg/dL Urine Blood (NEGATIVE) Urine Nitrate (NEGATIVE) Urine Bilirubin (NEGATIVE) Urine Urobilinogen (0.2-1.0) mg/dL Ur Leukocyte Esterase (Negative) Mikel/uL Urine WBC (Auto) (0-5) /hpf Urine RBC (Auto) (0-3) /hpf Blood Type Antibody Screen 05/25/18 05/25/18 05/25/18 Range/Units 14:53 11:55 11:55 WBC (4.8-10.8) K/uL RBC (3.80-5.20) Mil/uL Hgb (11.0-16.0) g/dL Hct (34.0-47.0) % MCV (81.0-99.0) fL MCH (27.0-31.0) pg MCHC (33.0-37.0) g/dL RDW (11.5-14.5) % Plt Count (130-400) K/uL MPV (7.2-11.7) fL Neut % (Auto) (50.0-75.0) % Lymph % (Auto) (20.0-40.0) % [place] % (Auto) (0.0-10.0) % Eos % (Auto) (0.0-4.0) % Baso % (Auto) (0.0-2.0) % Neut # (Auto) (1.8-7.0) K/uL Lymph # (Auto) (1.0-4.3) K/uL [place] # (Auto) (0.0-0.8) K/uL Eos # (Auto) (0.0-0.7) K/uL Baso # (Auto) (0.0-0.2) K/uL PT (9.7-12.2) SECONDS INR APTT (21-34) SECONDS Puncture Site pCO2 (35-45) mm/Hg pO2 (80-100) mm/Hg HCO3 (21-28) mmol/L ABG pH (7.35-7.45) ABG Total CO2 (22-28) mmol/L ABG O2 Saturation (95-98) % ABG Base Excess (-2.0-3.0) mmol/L ABG Hemoglobin (11.7-17.4) g/dL ABG Carboxyhemoglobin (0.5-1.5) % POC ABG HHb (Measured) (0.0-5.0) % ABG Methemoglobin (0.0-3.0) % Garfield Test ABG Potassium (3.6-5.2) mmol/L A-a O2 Difference mm/Hg Respiratory Index Hgb O2 Saturation (95.0-98.0) % Glucose (65-105) mg/dl Lactate (0.7-2.1) mmol/L Vent Mode Mechanical Rate FiO2 % Tidal Volume PEEP Sodium (132-148) mmol/L Potassium (3.6-5.2) mmol/L Chloride (98-107) mmol/L Carbon Dioxide (22-30) mmol/L Anion Gap (10-20) BUN (7-17) mg/dL Creatinine (0.7-1.2) mg/dL Est GFR ( Amer) Est GFR (Non-Af Amer) POC Glucose (mg/dL) (65-110) mg/dL Random Glucose (65-105) mg/dL Hemoglobin A1c 7.8 H (4.2-6.5) % Calcium (8.6-10.4) mg/dl Phosphorus (2.5-4.5) mg/dL Magnesium (1.6-2.3) mg/dL Total Bilirubin (0.2-1.3) mg/dL AST (14-36) U/L ALT (9-52) U/L Alkaline Phosphatase (38-126) U/L Troponin I 0.5920 H* (0.00-0.120) ng/mL Total Protein (6.3-8.3) g/dL Albumin (3.5-5.0) g/dL Globulin (2.2-3.9) gm/dL Albumin/Globulin Ratio (1.0-2.1) Triglycerides (0-149) mg/dL Cholesterol (0-199) mg/dL LDL Cholesterol Direct (0-129) mg/dL HDL Cholesterol (30-70) mg/dL TSH 3rd Generation (0.46-4.68) mIU/L Arterial Blood Potassium (3.6-5.2) mmol/L Urine Color (YELLOW) Urine Clarity (Clear) Urine pH (5.0-8.0) Ur Specific [place] (1.003-1.030) Urine Protein (NEGATIVE) mg/dL Urine Glucose (UA) (Normal) mg/dL Urine Ketones (NEGATIVE) mg/dL Urine Blood (NEGATIVE) Urine Nitrate (NEGATIVE) Urine Bilirubin (NEGATIVE) Urine Urobilinogen (0.2-1.0) mg/dL Ur Leukocyte Esterase (Negative) Mikel/uL Urine WBC (Auto) (0-5) /hpf Urine RBC (Auto) (0-3) /hpf Blood Type B POSITIVE Antibody Screen Negative 05/25/18 05/25/18 05/25/18 Range/Units 11:55 11:55 11:55 WBC 11.6 H (4.8-10.8) K/uL RBC 4.81 (3.80-5.20) Mil/uL Hgb 13.9 (11.0-16.0) g/dL Hct 40.8 (34.0-47.0) % MCV 84.9 (81.0-99.0) fL MCH 28.9 (27.0-31.0) pg MCHC 34.0 (33.0-37.0) g/dL RDW 14.0 (11.5-14.5) % Plt Count 342 (130-400) K/uL MPV 7.3 (7.2-11.7) fL Neut % (Auto) 77.4 H (50.0-75.0) % Lymph % (Auto) 13.2 L (20.0-40.0) % [place] % (Auto) 6.9 (0.0-10.0) % Eos % (Auto) 1.8 (0.0-4.0) % Baso % (Auto) 0.7 (0.0-2.0) % Neut # (Auto) 9.0 H (1.8-7.0) K/uL Lymph # (Auto) 1.5 (1.0-4.3) K/uL [place] # (Auto) 0.8 (0.0-0.8) K/uL Eos # (Auto) 0.2 (0.0-0.7) K/uL Baso # (Auto) 0.1 (0.0-0.2) K/uL PT 11.6 (9.7-12.2) SECONDS INR 1.1 APTT 34 (21-34) SECONDS Puncture Site pCO2 (35-45) mm/Hg pO2 (80-100) mm/Hg HCO3 (21-28) mmol/L ABG pH (7.35-7.45) ABG Total CO2 (22-28) mmol/L ABG O2 Saturation (95-98) % ABG Base Excess (-2.0-3.0) mmol/L ABG Hemoglobin (11.7-17.4) g/dL ABG Carboxyhemoglobin (0.5-1.5) % POC ABG HHb (Measured) (0.0-5.0) % ABG Methemoglobin (0.0-3.0) % Garfield Test ABG Potassium (3.6-5.2) mmol/L A-a O2 Difference mm/Hg Respiratory Index Hgb O2 Saturation (95.0-98.0) % Glucose (65-105) mg/dl Lactate (0.7-2.1) mmol/L Vent Mode Mechanical Rate FiO2 % Tidal Volume PEEP Sodium 133 (132-148) mmol/L Potassium 3.5 L (3.6-5.2) mmol/L Chloride 89 L (98-107) mmol/L Carbon Dioxide 32 H (22-30) mmol/L Anion Gap 15 (10-20) BUN 8 (7-17) mg/dL Creatinine 0.4 L (0.7-1.2) mg/dL Est GFR ( Amer) > 60 Est GFR (Non-Af Amer) > 60 POC Glucose (mg/dL) (65-110) mg/dL Random Glucose 195 H (65-105) mg/dL Hemoglobin A1c (4.2-6.5) % Calcium 10.1 (8.6-10.4) mg/dl Phosphorus (2.5-4.5) mg/dL Magnesium (1.6-2.3) mg/dL Total Bilirubin 0.5 (0.2-1.3) mg/dL AST 26 (14-36) U/L ALT 23 (9-52) U/L Alkaline Phosphatase 92 (38-126) U/L Troponin I 0.5910 H* (0.00-0.120) ng/mL Total Protein 7.7 (6.3-8.3) g/dL Albumin 4.2 (3.5-5.0) g/dL Globulin 3.5 (2.2-3.9) gm/dL Albumin/Globulin Ratio 1.2 (1.0-2.1) Triglycerides 208 H (0-149) mg/dL Cholesterol 141 (0-199) mg/dL LDL Cholesterol Direct 74 (0-129) mg/dL HDL Cholesterol 47 (30-70) mg/dL TSH 3rd Generation (0.46-4.68) mIU/L Arterial Blood Potassium (3.6-5.2) mmol/L Urine Color (YELLOW) Urine Clarity (Clear) Urine pH (5.0-8.0) Ur Specific [place] (1.003-1.030) Urine Protein (NEGATIVE) mg/dL Urine Glucose (UA) (Normal) mg/dL Urine Ketones (NEGATIVE) mg/dL Urine Blood (NEGATIVE) Urine Nitrate (NEGATIVE) Urine Bilirubin (NEGATIVE) Urine Urobilinogen (0.2-1.0) mg/dL Ur Leukocyte Esterase (Negative) Mikel/uL Urine WBC (Auto) (0-5) /hpf Urine RBC (Auto) (0-3) /hpf Blood Type Antibody Screen 05/25/18 Range/Units 11:41 WBC (4.8-10.8) K/uL RBC (3.80-5.20) Mil/uL Hgb (11.0-16.0) g/dL Hct (34.0-47.0) % MCV (81.0-99.0) fL MCH (27.0-31.0) pg MCHC (33.0-37.0) g/dL RDW (11.5-14.5) % Plt Count (130-400) K/uL MPV (7.2-11.7) fL Neut % (Auto) (50.0-75.0) % Lymph % (Auto) (20.0-40.0) % Finney % (Auto) (0.0-10.0) % Eos % (Auto) (0.0-4.0) % Baso % (Auto) (0.0-2.0) % Neut # (Auto) (1.8-7.0) K/uL Lymph # (Auto) (1.0-4.3) K/uL Finney # (Auto) (0.0-0.8) K/uL Eos # (Auto) (0.0-0.7) K/uL Baso # (Auto) (0.0-0.2) K/uL PT (9.7-12.2) SECONDS INR APTT (21-34) SECONDS Puncture Site pCO2 (35-45) mm/Hg pO2 (80-100) mm/Hg HCO3 (21-28) mmol/L ABG pH (7.35-7.45) ABG Total CO2 (22-28) mmol/L ABG O2 Saturation (95-98) % ABG Base Excess (-2.0-3.0) mmol/L ABG Hemoglobin (11.7-17.4) g/dL ABG Carboxyhemoglobin (0.5-1.5) % POC ABG HHb (Measured) (0.0-5.0) % ABG Methemoglobin (0.0-3.0) % Garfield Test ABG Potassium (3.6-5.2) mmol/L A-a O2 Difference mm/Hg Respiratory Index Hgb O2 Saturation (95.0-98.0) % Glucose (65-105) mg/dl Lactate (0.7-2.1) mmol/L Vent Mode Mechanical Rate FiO2 % Tidal Volume PEEP Sodium (132-148) mmol/L Potassium (3.6-5.2) mmol/L Chloride (98-107) mmol/L Carbon Dioxide (22-30) mmol/L Anion Gap (10-20) BUN (7-17) mg/dL Creatinine (0.7-1.2) mg/dL Est GFR ( Amer) Est GFR (Non-Af Amer) POC Glucose (mg/dL) 198 H (65-110) mg/dL Random Glucose (65-105) mg/dL Hemoglobin A1c (4.2-6.5) % Calcium (8.6-10.4) mg/dl Phosphorus (2.5-4.5) mg/dL Magnesium (1.6-2.3) mg/dL Total Bilirubin (0.2-1.3) mg/dL AST (14-36) U/L ALT (9-52) U/L Alkaline Phosphatase (38-126) U/L Troponin I (0.00-0.120) ng/mL Total Protein (6.3-8.3) g/dL Albumin (3.5-5.0) g/dL Globulin (2.2-3.9) gm/dL Albumin/Globulin Ratio (1.0-2.1) Triglycerides (0-149) mg/dL Cholesterol (0-199) mg/dL LDL Cholesterol Direct (0-129) mg/dL HDL Cholesterol (30-70) mg/dL TSH 3rd Generation (0.46-4.68) mIU/L Arterial Blood Potassium (3.6-5.2) mmol/L Urine Color (YELLOW) Urine Clarity (Clear) Urine pH (5.0-8.0) Ur Specific [place] (1.003-1.030) Urine Protein (NEGATIVE) mg/dL Urine Glucose (UA) (Normal) mg/dL Urine Ketones (NEGATIVE) mg/dL Urine Blood (NEGATIVE) Urine Nitrate (NEGATIVE) Urine Bilirubin (NEGATIVE) Urine Urobilinogen (0.2-1.0) mg/dL Ur Leukocyte Esterase (Negative) Mikel/uL Urine WBC (Auto) (0-5) /hpf Urine RBC (Auto) (0-3) /hpf Blood Type Antibody Screen Laboratory Results - last 24 hr 05/25/18 05/25/18 05/25/18 11:41 11:55 11:55 WBC 11.6 H RBC 4.81 Hgb 13.9 Hct 40.8 MCV 84.9 MCH 28.9 MCHC 34.0 RDW 14.0 Plt Count 342 MPV 7.3 Neut % (Auto) 77.4 H Lymph % (Auto) 13.2 L Finney % (Auto) 6.9 Eos % (Auto) 1.8 Baso % (Auto) 0.7 Neut # (Auto) 9.0 H Lymph # (Auto) 1.5 Finney # (Auto) 0.8 Eos # (Auto) 0.2 Baso # (Auto) 0.1 PT 11.6 INR 1.1 APTT 34 Puncture Site pCO2 pO2 HCO3 ABG pH ABG Total CO2 ABG O2 Saturation ABG Base Excess ABG Hemoglobin ABG Carboxyhemoglobin POC ABG HHb (Measured) ABG Methemoglobin Garfield Test ABG Potassium A-a O2 Difference Respiratory Index Hgb O2 Saturation Glucose Lactate Vent Mode Mechanical Rate FiO2 Tidal Volume PEEP Sodium Potassium Chloride Carbon Dioxide Anion Gap BUN Creatinine Est GFR ( Amer) Est GFR (Non-Af Amer) POC Glucose (mg/dL) 198 H Random Glucose Hemoglobin A1c Calcium Phosphorus Magnesium Total Bilirubin AST ALT Alkaline Phosphatase Troponin I Total Protein Albumin Globulin Albumin/Globulin Ratio Triglycerides Cholesterol LDL Cholesterol Direct HDL Cholesterol TSH 3rd Generation Arterial Blood Potassium Urine Color Urine Clarity Urine pH Ur Specific [place] Urine Protein Urine Glucose (UA) Urine Ketones Urine Blood Urine Nitrate Urine Bilirubin Urine Urobilinogen Ur Leukocyte Esterase Urine WBC (Auto) Urine RBC (Auto) Blood Type Antibody Screen 05/25/18 05/25/18 05/25/18 11:55 11:55 11:55 WBC RBC Hgb Hct MCV MCH MCHC RDW Plt Count MPV Neut % (Auto) Lymph % (Auto) Finney % (Auto) Eos % (Auto) Baso % (Auto) Neut # (Auto) Lymph # (Auto) Finney # (Auto) Eos # (Auto) Baso # (Auto) PT INR APTT Puncture Site pCO2 pO2 HCO3 ABG pH ABG Total CO2 ABG O2 Saturation ABG Base Excess ABG Hemoglobin ABG Carboxyhemoglobin POC ABG HHb (Measured) ABG Methemoglobin Garfield Test ABG Potassium A-a O2 Difference Respiratory Index Hgb O2 Saturation Glucose Lactate Vent Mode Mechanical Rate FiO2 Tidal Volume PEEP Sodium 133 Potassium 3.5 L Chloride 89 L Carbon Dioxide 32 H Anion Gap 15 BUN 8 Creatinine 0.4 L Est GFR ( Amer) > 60 Est GFR (Non-Af Amer) > 60 POC Glucose (mg/dL) Random Glucose 195 H Hemoglobin A1c 7.8 H Calcium 10.1 Phosphorus Magnesium Total Bilirubin 0.5 AST 26 ALT 23 Alkaline Phosphatase 92 Troponin I 0.5910 H* Total Protein 7.7 Albumin 4.2 Globulin 3.5 Albumin/Globulin Ratio 1.2 Triglycerides 208 H Cholesterol 141 LDL Cholesterol Direct 74 HDL Cholesterol 47 TSH 3rd Generation Arterial Blood Potassium Urine Color Urine Clarity Urine pH Ur Specific [place] Urine Protein Urine Glucose (UA) Urine Ketones Urine Blood Urine Nitrate Urine Bilirubin Urine Urobilinogen Ur Leukocyte Esterase Urine WBC (Auto) Urine RBC (Auto) Blood Type B POSITIVE Antibody Screen Negative 05/25/18 05/25/18 05/25/18 14:53 17:46 19:45 WBC RBC Hgb Hct MCV MCH MCHC RDW Plt Count MPV Neut % (Auto) Lymph % (Auto) Finney % (Auto) Eos % (Auto) Baso % (Auto) Neut # (Auto) Lymph # (Auto) Finney # (Auto) Eos # (Auto) Baso # (Auto) PT INR APTT Puncture Site Lra pCO2 33 L pO2 470 H HCO3 27.3 ABG pH 7.50 H ABG Total CO2 26.7 ABG O2 Saturation 99.8 H ABG Base Excess 2.9 ABG Hemoglobin ABG Carboxyhemoglobin POC ABG HHb (Measured) ABG Methemoglobin Garfield Test Pos ABG Potassium 3.1 L A-a O2 Difference 202.0 Respiratory Index 0.4 Hgb O2 Saturation Glucose 189 H Lactate 3.5 H Vent Mode Prvc Mechanical Rate 20 FiO2 100.0 Tidal Volume 500 PEEP 5 Sodium 131.0 L Potassium Chloride 99.0 Carbon Dioxide Anion Gap BUN Creatinine Est GFR ( Amer) Est GFR (Non-Af Amer) POC Glucose (mg/dL) 153 H Random Glucose Hemoglobin A1c Calcium Phosphorus Magnesium Total Bilirubin AST ALT Alkaline Phosphatase Troponin I 0.5920 H* Total Protein Albumin Globulin Albumin/Globulin Ratio Triglycerides Cholesterol LDL Cholesterol Direct HDL Cholesterol TSH 3rd Generation Arterial Blood Potassium 3.1 L Urine Color Urine Clarity Urine pH Ur Specific [place] Urine Protein Urine Glucose (UA) Urine Ketones Urine Blood Urine Nitrate Urine Bilirubin Urine Urobilinogen Ur Leukocyte Esterase Urine WBC (Auto) Urine RBC (Auto) Blood Type Antibody Screen 05/25/18 05/25/18 05/25/18 20:20 21:11 21:11 WBC 10.8 RBC 4.66 Hgb 13.4 Hct 39.2 MCV 84.1 MCH 28.8 MCHC 34.2 RDW 14.2 Plt Count 355 MPV 7.6 Neut % (Auto) 77.5 H Lymph % (Auto) 15.8 L Finney % (Auto) 5.4 Eos % (Auto) 0.6 Baso % (Auto) 0.7 Neut # (Auto) 8.4 H Lymph # (Auto) 1.7 Finney # (Auto) 0.6 Eos # (Auto) 0.1 Baso # (Auto) 0.1 PT INR APTT Puncture Site pCO2 pO2 HCO3 ABG pH ABG Total CO2 ABG O2 Saturation ABG Base Excess ABG Hemoglobin ABG Carboxyhemoglobin POC ABG HHb (Measured) ABG Methemoglobin Garfield Test ABG Potassium A-a O2 Difference Respiratory Index Hgb O2 Saturation Glucose Lactate Vent Mode Mechanical Rate FiO2 Tidal Volume PEEP Sodium 130 L Potassium 3.6 Chloride 87 L Carbon Dioxide 29 Anion Gap 18 BUN 9 Creatinine 0.5 L Est GFR ( Amer) > 60 Est GFR (Non-Af Amer) > 60 POC Glucose (mg/dL) 186 H Random Glucose 218 H Hemoglobin A1c Calcium 9.7 Phosphorus 3.5 Magnesium 2.3 Total Bilirubin 1.0 AST 76 H D ALT 30 Alkaline Phosphatase 85 Troponin I 0.6090 H* Total Protein 7.1 Albumin 3.9 Globulin 3.3 Albumin/Globulin Ratio 1.2 Triglycerides Cholesterol LDL Cholesterol Direct HDL Cholesterol TSH 3rd Generation 2.93 Arterial Blood Potassium Urine Color Urine Clarity Urine pH Ur Specific [place] Urine Protein Urine Glucose (UA) Urine Ketones Urine Blood Urine Nitrate Urine Bilirubin Urine Urobilinogen Ur Leukocyte Esterase Urine WBC (Auto) Urine RBC (Auto) Blood Type Antibody Screen 05/25/18 05/26/18 05/26/18 23:21 05:21 05:56 WBC 10.7 RBC 4.25 Hgb 12.1 Hct 35.6 MCV 83.8 MCH 28.5 MCHC 34.0 RDW 13.8 Plt Count 316 MPV 7.6 Neut % (Auto) 63.4 Lymph % (Auto) 26.5 Finney % (Auto) 7.4 Eos % (Auto) 1.9 Baso % (Auto) 0.8 Neut # (Auto) 6.8 Lymph # (Auto) 2.8 Finney # (Auto) 0.8 Eos # (Auto) 0.2 Baso # (Auto) 0.1 PT INR APTT Puncture Site Lb pCO2 22 L pO2 485 H HCO3 23.5 ABG pH 7.55 H ABG Total CO2 19.9 L ABG O2 Saturation 99.8 H ABG Base Excess -1.9 ABG Hemoglobin 10.3 L ABG Carboxyhemoglobin 1.2 POC ABG HHb (Measured) 0.2 ABG Methemoglobin 1.6 Garfield Test Na ABG Potassium A-a O2 Difference 201.0 Respiratory Index 0.4 Hgb O2 Saturation 97.0 Glucose Lactate Vent Mode Prvc Mechanical Rate 20 FiO2 100.0 Tidal Volume 500 PEEP 5 Sodium Potassium Chloride Carbon Dioxide Anion Gap BUN Creatinine Est GFR ( Amer) Est GFR (Non-Af Amer) POC Glucose (mg/dL) 148 H Random Glucose Hemoglobin A1c Calcium Phosphorus Magnesium Total Bilirubin AST ALT Alkaline Phosphatase Troponin I Total Protein Albumin Globulin Albumin/Globulin Ratio Triglycerides Cholesterol LDL Cholesterol Direct HDL Cholesterol TSH 3rd Generation Arterial Blood Potassium Urine Color Urine Clarity Urine pH Ur Specific [place] Urine Protein Urine Glucose (UA) Urine Ketones Urine Blood Urine Nitrate Urine Bilirubin Urine Urobilinogen Ur Leukocyte Esterase Urine WBC (Auto) Urine RBC (Auto) Blood Type Antibody Screen 05/26/18 05/26/18 05/26/18 05:56 05:56 06:39 WBC RBC Hgb Hct MCV MCH MCHC RDW Plt Count MPV Neut % (Auto) Lymph % (Auto) Finney % (Auto) Eos % (Auto) Baso % (Auto) Neut # (Auto) Lymph # (Auto) Finney # (Auto) Eos # (Auto) Baso # (Auto) PT INR APTT 56 H D Puncture Site pCO2 pO2 HCO3 ABG pH ABG Total CO2 ABG O2 Saturation ABG Base Excess ABG Hemoglobin ABG Carboxyhemoglobin POC ABG HHb (Measured) ABG Methemoglobin Garfield Test ABG Potassium A-a O2 Difference Respiratory Index Hgb O2 Saturation Glucose Lactate Vent Mode Mechanical Rate FiO2 Tidal Volume PEEP Sodium 132 Potassium 3.9 Chloride 100 Carbon Dioxide 23 Anion Gap 13 BUN 9 Creatinine 0.5 L Est GFR ( Amer) > 60 Est GFR (Non-Af Amer) > 60 POC Glucose (mg/dL) 144 H Random Glucose 165 H Hemoglobin A1c Calcium 8.7 Phosphorus 2.0 L Magnesium 1.9 Total Bilirubin 1.1 AST 84 H ALT 50 Alkaline Phosphatase 74 Troponin I Total Protein 5.8 L Albumin 3.1 L D Globulin 2.7 Albumin/Globulin Ratio 1.1 Triglycerides Cholesterol LDL Cholesterol Direct HDL Cholesterol TSH 3rd Generation 2.36 Arterial Blood Potassium Urine Color Urine Clarity Urine pH Ur Specific [place] Urine Protein Urine Glucose (UA) Urine Ketones Urine Blood Urine Nitrate Urine Bilirubin Urine Urobilinogen Ur Leukocyte Esterase Urine WBC (Auto) Urine RBC (Auto) Blood Type Antibody Screen 05/26/18 08:27 WBC RBC Hgb Hct MCV MCH MCHC RDW Plt Count MPV Neut % (Auto) Lymph % (Auto) Finney % (Auto) Eos % (Auto) Baso % (Auto) Neut # (Auto) Lymph # (Auto) Finney # (Auto) Eos # (Auto) Baso # (Auto) PT INR APTT Puncture Site pCO2 pO2 HCO3 ABG pH ABG Total CO2 ABG O2 Saturation ABG Base Excess ABG Hemoglobin ABG Carboxyhemoglobin POC ABG HHb (Measured) ABG Methemoglobin Garfield Test ABG Potassium A-a O2 Difference Respiratory Index Hgb O2 Saturation Glucose Lactate Vent Mode Mechanical Rate FiO2 Tidal Volume PEEP Sodium Potassium Chloride Carbon Dioxide Anion Gap BUN Creatinine Est GFR ( Amer) Est GFR (Non-Af Amer) POC Glucose (mg/dL) Random Glucose Hemoglobin A1c Calcium Phosphorus Magnesium Total Bilirubin AST ALT Alkaline Phosphatase Troponin I Total Protein Albumin Globulin Albumin/Globulin Ratio Triglycerides Cholesterol LDL Cholesterol Direct HDL Cholesterol TSH 3rd Generation Arterial Blood Potassium Urine Color Yellow Urine Clarity Clear Urine pH 7.0 Ur Specific [place] 1.028 Urine Protein 2+ H Urine Glucose (UA) Normal Urine Ketones Trace Urine Blood Negative Urine Nitrate Negative Urine Bilirubin Negative Urine Urobilinogen Normal Ur Leukocyte Esterase Neg Urine WBC (Auto) 1 Urine RBC (Auto) 1 Blood Type Antibody Screen Radiology Impressions: Radiology Impressions Chest X-Ray 05/25/18 11:49 IMPRESSION: No interval acute cardiopulmonary pathology suspect. Cardiomegaly and minimal chronic pulmonary venous congestion inferred. Atherosclerotic vascular disease. Bilateral shoulder arthrosis as detailed above. Head CT 05/25/18 11:49 IMPRESSION: No acute intracranial hemorrhage. Chronic microvascular ischemic change. 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 Intracranial arterial calcifications. Mucosal thickening and hypertrophy of the bilateral maxillary sinuses and ethmoid air cells. 2.2 centimeter mucosal retention cyst and or polyp in the left maxillary sinus. If symptoms persists, consider correlation with MRI. These findings were relayed to Dr Mojica at 12:08 p.m. 05/25/2018. Head/Neck CTA 05/25/18 11:52 IMPRESSION: Mild partially calcified atherosclerotic plaque changes seen both carotid bifurcations and proximal internal carotid arteries with no evidence of occlusion significant stenosis or dissection. Mild calcified plaque changes also noted both cavernous carotid arteries and distal vertebral arteries (intradural segments). The intra cerebral vasculature is unremarkable. No evidence of large aneurysm nor vascular malformation. Hyperdense nodules right lobe thyroid gland with few tiny calcifications. Recommend follow-up thyroid ultrasound. CT Dissection 05/25/18 12:12 Impression: No evidence of thoracic or abdominal aorta dissection or aneurysmal dilatation. Atherosclerotic calcifications and mural plaque evident. Dense coronary artery calcifications. Pancreatic duct appears markedly dilated measuring approximately 1.3 cm in diameter as well as ectatic. 1 cm hypodense focus at the uncinate process measures approximately 5 Hounsfield units consistent with cyst. Differential diagnosis includes small cystic neoplasm versus sequela of prior pancreatitis (dilated side duct radicles or tiny pseudocyst). Atrophic pancreas. Recommend clinical correlation including prior outside imaging. If indicated, follow-up pancreatic protocol CT or MRI may be considered for further assessment. Hypoattenuation of the liver compatible with hepatic steatosis. Dilated common bile duct in the setting of cholecystectomy. T8, T11, T12, and L1 compression fracture deformities. MRI may be considered for further evaluation if indicated. Visualized portions of the inferior thyroid gland: 1.2 cm hypodense nodule at the right lower pole. Additional tiny hypodensities within visualized bilateral lower thyroid poles. Follow-up outpatient thyroid ultrasound may be considered for further assessment if indicated. Additional findings as above. Head CT 05/25/18 19:40 IMPRESSION: 1. 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 2. Loss of triplett-white matter differentiation likely related to cerebral edema. Chest X-Ray 05/25/18 19:47 IMPRESSION: Endotracheal tube terminates 1.8 cm proximal to the britton. No acute findings. Chest X-Ray 05/26/18 07:00 IMPRESSION: Stable position of endotracheal tube. No significant interval change. EKG/Cardiology Studies: Cardiology / EKG Studies 05/25/18 11:40 ELECTROCARDIOGRAM Stat Comment: Mode Of Transportation: BED Reason For Exam: cp 05/25/18 19:21 EKG [ELECTROCARDIOGRAM] Stat Comment: Mode Of Transportation: Reason For Exam: eval change in rhythm Fingerstick Blood Sugar Results: 144 Assessment/Plan - Assessment and Plan (Free Text) Assessment: Patient is an 81 year old female with a history of DM, HTN, HLD, arthritis, and asthma, who presenting with chest pain and altered mental status. Patient was a code stroke in the ED. Patient is DNR/DNI and was terminally extubated at 10:15AM on 05/26. Plan: Management: - Patient's code status is DNR/ DNI - Terminally extubated at 10:15AM - Fentanyl drip - Comfort care measures only - Palliative care consulted Case discussed with Dr. Clair Salmeron, PGY-1 <Teofilo Self - Last Filed: 05/26/18 14:31> CCU Objective - Vital Signs / Intake & Output Vital Signs (Last 4 hours): Vital Signs Pulse Resp BP Pulse Ox 05/26/18 12:37 97 05/26/18 11:25 128/48 L 05/26/18 11:23 42 L 21 05/26/18 11:00 42 L 19 05/26/18 10:56 43 L 19 131/47 L Intake and Output (Last 8hrs): Intake & Output 05/25/18 05/26/18 05/26/18 22:59 06:59 14:59 Intake Total 1258.5 2071.80 317.5 Output Total 0 Balance 1258.5 2071.80 317.5 Weight 142 lb 6.698 oz 143 lb 4.807 oz Intake: IV 82.2 110.30 0.3 Intake, IV Amount 1176.3 1961.5 317.2 Left Forearm 27 RF TLC 105 60 Right Antecubital 38.7 62.4 31.2 Right Distal Port Femoral 1000 1425 200 Right Distal Port Femoral 100 263.8 0 Y site Right Medial Port Femoral 10.6 59.8 0 TLC RF 45.5 26.0 Oral 0 0 0 Output: Emesis 0 Oral Regurgitation 0 Other: # Voids Urine, Voided 0 0 0 # Bowel Movements 0 0 0 - Medications Active Medications: Active Medications Generic Name Dose Route Start Last Admin Trade Name Freq PRN Reason Stop Dose Admin Fentanyl Citrate 2,500 mcg/ 250 mls @ 12.92 mls/hr 05/25/18 23:30 05/25/18 23:56 Sodium Chloride IV 1 mcg/kg/hr .[id number] MAG 6.46 mls/hr Administration Protocol 2 MCG/KG/HR - Patient Studies Lab Studies: Lab Studies 05/26/18 05/26/18 05/26/18 Range/Units 08:27 06:39 05:56 WBC (4.8-10.8) K/uL RBC (3.80-5.20) Mil/uL Hgb (11.0-16.0) g/dL Hct (34.0-47.0) % MCV (81.0-99.0) fL MCH (27.0-31.0) pg MCHC (33.0-37.0) g/dL RDW (11.5-14.5) % Plt Count (130-400) K/uL MPV (7.2-11.7) fL Neut % (Auto) (50.0-75.0) % Lymph % (Auto) (20.0-40.0) % Finney % (Auto) (0.0-10.0) % Eos % (Auto) (0.0-4.0) % Baso % (Auto) (0.0-2.0) % Neut # (Auto) (1.8-7.0) K/uL Lymph # (Auto) (1.0-4.3) K/uL Finney # (Auto) (0.0-0.8) K/uL Eos # (Auto) (0.0-0.7) K/uL Baso # (Auto) (0.0-0.2) K/uL APTT 56 H D (21-34) SECONDS Puncture Site pCO2 (35-45) mm/Hg pO2 (80-100) mm/Hg HCO3 (21-28) mmol/L ABG pH (7.35-7.45) ABG Total CO2 (22-28) mmol/L ABG O2 Saturation (95-98) % ABG Base Excess (-2.0-3.0) mmol/L ABG Hemoglobin (11.7-17.4) g/dL ABG Carboxyhemoglobin (0.5-1.5) % POC ABG HHb (Measured) (0.0-5.0) % ABG Methemoglobin (0.0-3.0) % Garfield Test ABG Potassium (3.6-5.2) mmol/L A-a O2 Difference mm/Hg Respiratory Index Hgb O2 Saturation (95.0-98.0) % Sodium (132-148) mmol/l Chloride (98-107) mmol/L Glucose (65-105) mg/dl Lactate (0.7-2.1) mmol/L Vent Mode Mechanical Rate FiO2 % Tidal Volume PEEP Potassium (3.6-5.2) mmol/L Carbon Dioxide (22-30) mmol/L Anion Gap (10-20) BUN (7-17) mg/dL Creatinine (0.7-1.2) mg/dL Est GFR ( Amer) Est GFR (Non-Af Amer) POC Glucose (mg/dL) 144 H (65-110) mg/dL Random Glucose (65-105) mg/dL Calcium (8.6-10.4) mg/dl Phosphorus (2.5-4.5) mg/dL Magnesium (1.6-2.3) mg/dL Total Bilirubin (0.2-1.3) mg/dL AST (14-36) U/L ALT (9-52) U/L Alkaline Phosphatase (38-126) U/L Troponin I (0.00-0.120) ng/mL Total Protein (6.3-8.3) g/dL Albumin (3.5-5.0) g/dL Globulin (2.2-3.9) gm/dL Albumin/Globulin Ratio (1.0-2.1) TSH 3rd Generation (0.46-4.68) mIU/L Arterial Blood Potassium (3.6-5.2) mmol/L Urine Color Yellow (YELLOW) Urine Clarity Clear (Clear) Urine pH 7.0 (5.0-8.0) Ur Specific [place] 1.028 (1.003-1.030) Urine Protein 2+ H (NEGATIVE) mg/dL Urine Glucose (UA) Normal (Normal) mg/dL Urine Ketones Trace (NEGATIVE) mg/dL Urine Blood Negative (NEGATIVE) Urine Nitrate Negative (NEGATIVE) Urine Bilirubin Negative (NEGATIVE) Urine Urobilinogen Normal (0.2-1.0) mg/dL Ur Leukocyte Esterase Neg (Negative) Mikel/uL Urine WBC (Auto) 1 (0-5) /hpf Urine RBC (Auto) 1 (0-3) /hpf 05/26/18 05/26/18 05/26/18 Range/Units 05:56 05:56 05:21 WBC 10.7 (4.8-10.8) K/uL RBC 4.25 (3.80-5.20) Mil/uL Hgb 12.1 (11.0-16.0) g/dL Hct 35.6 (34.0-47.0) % MCV 83.8 (81.0-99.0) fL MCH 28.5 (27.0-31.0) pg MCHC 34.0 (33.0-37.0) g/dL RDW 13.8 (11.5-14.5) % Plt Count 316 (130-400) K/uL MPV 7.6 (7.2-11.7) fL Neut % (Auto) 63.4 (50.0-75.0) % Lymph % (Auto) 26.5 (20.0-40.0) % Finney % (Auto) 7.4 (0.0-10.0) % Eos % (Auto) 1.9 (0.0-4.0) % Baso % (Auto) 0.8 (0.0-2.0) % Neut # (Auto) 6.8 (1.8-7.0) K/uL Lymph # (Auto) 2.8 (1.0-4.3) K/uL Finney # (Auto) 0.8 (0.0-0.8) K/uL Eos # (Auto) 0.2 (0.0-0.7) K/uL Baso # (Auto) 0.1 (0.0-0.2) K/uL APTT (21-34) SECONDS Puncture Site Lb pCO2 22 L (35-45) mm/Hg pO2 485 H (80-100) mm/Hg HCO3 23.5 (21-28) mmol/L ABG pH 7.55 H (7.35-7.45) ABG Total CO2 19.9 L (22-28) mmol/L ABG O2 Saturation 99.8 H (95-98) % ABG Base Excess -1.9 (-2.0-3.0) mmol/L ABG Hemoglobin 10.3 L (11.7-17.4) g/dL ABG Carboxyhemoglobin 1.2 (0.5-1.5) % POC ABG HHb (Measured) 0.2 (0.0-5.0) % ABG Methemoglobin 1.6 (0.0-3.0) % Garfield Test Na ABG Potassium (3.6-5.2) mmol/L A-a O2 Difference 201.0 mm/Hg Respiratory Index 0.4 Hgb O2 Saturation 97.0 (95.0-98.0) % Sodium 132 (132-148) mmol/l Chloride 100 (98-107) mmol/L Glucose (65-105) mg/dl Lactate (0.7-2.1) mmol/L Vent Mode Prvc Mechanical Rate 20 FiO2 100.0 % Tidal Volume 500 PEEP 5 Potassium 3.9 (3.6-5.2) mmol/L Carbon Dioxide 23 (22-30) mmol/L Anion Gap 13 (10-20) BUN 9 (7-17) mg/dL Creatinine 0.5 L (0.7-1.2) mg/dL Est GFR ( Amer) > 60 Est GFR (Non-Af Amer) > 60 POC Glucose (mg/dL) (65-110) mg/dL Random Glucose 165 H (65-105) mg/dL Calcium 8.7 (8.6-10.4) mg/dl Phosphorus 2.0 L (2.5-4.5) mg/dL Magnesium 1.9 (1.6-2.3) mg/dL Total Bilirubin 1.1 (0.2-1.3) mg/dL AST 84 H (14-36) U/L ALT 50 (9-52) U/L Alkaline Phosphatase 74 (38-126) U/L Troponin I (0.00-0.120) ng/mL Total Protein 5.8 L (6.3-8.3) g/dL Albumin 3.1 L D (3.5-5.0) g/dL Globulin 2.7 (2.2-3.9) gm/dL Albumin/Globulin Ratio 1.1 (1.0-2.1) TSH 3rd Generation 2.36 (0.46-4.68) mIU/L Arterial Blood Potassium (3.6-5.2) mmol/L Urine Color (YELLOW) Urine Clarity (Clear) Urine pH (5.0-8.0) Ur Specific [place] (1.003-1.030) Urine Protein (NEGATIVE) mg/dL Urine Glucose (UA) (Normal) mg/dL Urine Ketones (NEGATIVE) mg/dL Urine Blood (NEGATIVE) Urine Nitrate (NEGATIVE) Urine Bilirubin (NEGATIVE) Urine Urobilinogen (0.2-1.0) mg/dL Ur Leukocyte Esterase (Negative) Mikel/uL Urine WBC (Auto) (0-5) /hpf Urine RBC (Auto) (0-3) /hpf 05/25/18 05/25/18 05/25/18 Range/Units 23:21 21:11 21:11 WBC 10.8 (4.8-10.8) K/uL RBC 4.66 (3.80-5.20) Mil/uL Hgb 13.4 (11.0-16.0) g/dL Hct 39.2 (34.0-47.0) % MCV 84.1 (81.0-99.0) fL MCH 28.8 (27.0-31.0) pg MCHC 34.2 (33.0-37.0) g/dL RDW 14.2 (11.5-14.5) % Plt Count 355 (130-400) K/uL MPV 7.6 (7.2-11.7) fL Neut % (Auto) 77.5 H (50.0-75.0) % Lymph % (Auto) 15.8 L (20.0-40.0) % [place] % (Auto) 5.4 (0.0-10.0) % Eos % (Auto) 0.6 (0.0-4.0) % Baso % (Auto) 0.7 (0.0-2.0) % Neut # (Auto) 8.4 H (1.8-7.0) K/uL Lymph # (Auto) 1.7 (1.0-4.3) K/uL Finney # (Auto) 0.6 (0.0-0.8) K/uL Eos # (Auto) 0.1 (0.0-0.7) K/uL Baso # (Auto) 0.1 (0.0-0.2) K/uL APTT (21-34) SECONDS Puncture Site pCO2 (35-45) mm/Hg pO2 (80-100) mm/Hg HCO3 (21-28) mmol/L ABG pH (7.35-7.45) ABG Total CO2 (22-28) mmol/L ABG O2 Saturation (95-98) % ABG Base Excess (-2.0-3.0) mmol/L ABG Hemoglobin (11.7-17.4) g/dL ABG Carboxyhemoglobin (0.5-1.5) % POC ABG HHb (Measured) (0.0-5.0) % ABG Methemoglobin (0.0-3.0) % Garfield Test ABG Potassium (3.6-5.2) mmol/L A-a O2 Difference mm/Hg Respiratory Index Hgb O2 Saturation (95.0-98.0) % Sodium 130 L (132-148) mmol/l Chloride 87 L (98-107) mmol/L Glucose (65-105) mg/dl Lactate (0.7-2.1) mmol/L Vent Mode Mechanical Rate FiO2 % Tidal Volume PEEP Potassium 3.6 (3.6-5.2) mmol/L Carbon Dioxide 29 (22-30) mmol/L Anion Gap 18 (10-20) BUN 9 (7-17) mg/dL Creatinine 0.5 L (0.7-1.2) mg/dL Est GFR ( Amer) > 60 Est GFR (Non-Af Amer) > 60 POC Glucose (mg/dL) 148 H (65-110) mg/dL Random Glucose 218 H (65-105) mg/dL Calcium 9.7 (8.6-10.4) mg/dl Phosphorus 3.5 (2.5-4.5) mg/dL Magnesium 2.3 (1.6-2.3) mg/dL Total Bilirubin 1.0 (0.2-1.3) mg/dL AST 76 H D (14-36) U/L ALT 30 (9-52) U/L Alkaline Phosphatase 85 (38-126) U/L Troponin I 0.6090 H* (0.00-0.120) ng/mL Total Protein 7.1 (6.3-8.3) g/dL Albumin 3.9 (3.5-5.0) g/dL Globulin 3.3 (2.2-3.9) gm/dL Albumin/Globulin Ratio 1.2 (1.0-2.1) TSH 3rd Generation 2.93 (0.46-4.68) mIU/L Arterial Blood Potassium (3.6-5.2) mmol/L Urine Color (YELLOW) Urine Clarity (Clear) Urine pH (5.0-8.0) Ur Specific [place] (1.003-1.030) Urine Protein (NEGATIVE) mg/dL Urine Glucose (UA) (Normal) mg/dL Urine Ketones (NEGATIVE) mg/dL Urine Blood (NEGATIVE) Urine Nitrate (NEGATIVE) Urine Bilirubin (NEGATIVE) Urine Urobilinogen (0.2-1.0) mg/dL Ur Leukocyte Esterase (Negative) Mikel/uL Urine WBC (Auto) (0-5) /hpf Urine RBC (Auto) (0-3) /hpf 05/25/18 05/25/18 05/25/18 Range/Units 20:20 19:45 17:46 WBC (4.8-10.8) K/uL RBC (3.80-5.20) Mil/uL Hgb (11.0-16.0) g/dL Hct (34.0-47.0) % MCV (81.0-99.0) fL MCH (27.0-31.0) pg MCHC (33.0-37.0) g/dL RDW (11.5-14.5) % Plt Count (130-400) K/uL MPV (7.2-11.7) fL Neut % (Auto) (50.0-75.0) % Lymph % (Auto) (20.0-40.0) % [place]ney % (Auto) (0.0-10.0) % Eos % (Auto) (0.0-4.0) % Baso % (Auto) (0.0-2.0) % Neut # (Auto) (1.8-7.0) K/uL Lymph # (Auto) (1.0-4.3) K/uL Finney # (Auto) (0.0-0.8) K/uL Eos # (Auto) (0.0-0.7) K/uL Baso # (Auto) (0.0-0.2) K/uL APTT (21-34) SECONDS Puncture Site Lra pCO2 33 L (35-45) mm/Hg pO2 470 H (80-100) mm/Hg HCO3 27.3 (21-28) mmol/L ABG pH 7.50 H (7.35-7.45) ABG Total CO2 26.7 (22-28) mmol/L ABG O2 Saturation 99.8 H (95-98) % ABG Base Excess 2.9 (-2.0-3.0) mmol/L ABG Hemoglobin (11.7-17.4) g/dL ABG Carboxyhemoglobin (0.5-1.5) % POC ABG HHb (Measured) (0.0-5.0) % ABG Methemoglobin (0.0-3.0) % Garfield Test Pos ABG Potassium 3.1 L (3.6-5.2) mmol/L A-a O2 Difference 202.0 mm/Hg Respiratory Index 0.4 Hgb O2 Saturation (95.0-98.0) % Sodium 131.0 L (132-148) mmol/l Chloride 99.0 (98-107) mmol/L Glucose 189 H (65-105) mg/dl Lactate 3.5 H (0.7-2.1) mmol/L Vent Mode Prvc Mechanical Rate 20 FiO2 100.0 % Tidal Volume 500 PEEP 5 Potassium (3.6-5.2) mmol/L Carbon Dioxide (22-30) mmol/L Anion Gap (10-20) BUN (7-17) mg/dL Creatinine (0.7-1.2) mg/dL Est GFR ( Amer) Est GFR (Non-Af Amer) POC Glucose (mg/dL) 186 H 153 H (65-110) mg/dL Random Glucose (65-105) mg/dL Calcium (8.6-10.4) mg/dl Phosphorus (2.5-4.5) mg/dL Magnesium (1.6-2.3) mg/dL Total Bilirubin (0.2-1.3) mg/dL AST (14-36) U/L ALT (9-52) U/L Alkaline Phosphatase (38-126) U/L Troponin I (0.00-0.120) ng/mL Total Protein (6.3-8.3) g/dL Albumin (3.5-5.0) g/dL Globulin (2.2-3.9) gm/dL Albumin/Globulin Ratio (1.0-2.1) TSH 3rd Generation (0.46-4.68) mIU/L Arterial Blood Potassium 3.1 L (3.6-5.2) mmol/L Urine Color (YELLOW) Urine Clarity (Clear) Urine pH (5.0-8.0) Ur Specific [place] (1.003-1.030) Urine Protein (NEGATIVE) mg/dL Urine Glucose (UA) (Normal) mg/dL Urine Ketones (NEGATIVE) mg/dL Urine Blood (NEGATIVE) Urine Nitrate (NEGATIVE) Urine Bilirubin (NEGATIVE) Urine Urobilinogen (0.2-1.0) mg/dL Ur Leukocyte Esterase (Negative) Mikel/uL Urine WBC (Auto) (0-5) /hpf Urine RBC (Auto) (0-3) /hpf 05/25/ Range/Units 14:53 WBC (4.8-10.8) K/uL RBC (3.80-5.20) Mil/uL Hgb (11.0-16.0) g/dL Hct (34.0-47.0) % MCV (81.0-99.0) fL MCH (27.0-31.0) pg MCHC (33.0-37.0) g/dL RDW (11.5-14.5) % Plt Count (130-400) K/uL MPV (7.2-11.7) fL Neut % (Auto) (50.0-75.0) % Lymph % (Auto) (20.0-40.0) % Finney % (Auto) (0.0-10.0) % Eos % (Auto) (0.0-4.0) % Baso % (Auto) (0.0-2.0) % Neut # (Auto) (1.8-7.0) K/uL Lymph # (Auto) (1.0-4.3) K/uL Finney # (Auto) (0.0-0.8) K/uL Eos # (Auto) (0.0-0.7) K/uL Baso # (Auto) (0.0-0.2) K/uL APTT (21-34) SECONDS Puncture Site pCO2 (35-45) mm/Hg pO2 (80-100) mm/Hg HCO3 (21-28) mmol/L ABG pH (7.35-7.45) ABG Total CO2 (22-28) mmol/L ABG O2 Saturation (95-98) % ABG Base Excess (-2.0-3.0) mmol/L ABG Hemoglobin (11.7-17.4) g/dL ABG Carboxyhemoglobin (0.5-1.5) % POC ABG HHb (Measured) (0.0-5.0) % ABG Methemoglobin (0.0-3.0) % Garfield Test ABG Potassium (3.6-5.2) mmol/L A-a O2 Difference mm/Hg Respiratory Index Hgb O2 Saturation (95.0-98.0) % Sodium (132-148) mmol/l Chloride (98-107) mmol/L Glucose (65-105) mg/dl Lactate (0.7-2.1) mmol/L Vent Mode Mechanical Rate FiO2 % Tidal Volume PEEP Potassium (3.6-5.2) mmol/L Carbon Dioxide (22-30) mmol/L Anion Gap (10-20) BUN (7-17) mg/dL Creatinine (0.7-1.2) mg/dL Est GFR ( Amer) Est GFR (Non-Af Amer) POC Glucose (mg/dL) (65-110) mg/dL Random Glucose (65-105) mg/dL Calcium (8.6-10.4) mg/dl Phosphorus (2.5-4.5) mg/dL Magnesium (1.6-2.3) mg/dL Total Bilirubin (0.2-1.3) mg/dL AST (14-36) U/L ALT (9-52) U/L Alkaline Phosphatase (38-126) U/L Troponin I 0.5920 H* (0.00-0.120) ng/mL Total Protein (6.3-8.3) g/dL Albumin (3.5-5.0) g/dL Globulin (2.2-3.9) gm/dL Albumin/Globulin Ratio (1.0-2.1) TSH 3rd Generation (0.46-4.68) mIU/L Arterial Blood Potassium (3.6-5.2) mmol/L Urine Color (YELLOW) Urine Clarity (Clear) Urine pH (5.0-8.0) Ur Specific [place] (1.003-1.030) Urine Protein (NEGATIVE) mg/dL Urine Glucose (UA) (Normal) mg/dL Urine Ketones (NEGATIVE) mg/dL Urine Blood (NEGATIVE) Urine Nitrate (NEGATIVE) Urine Bilirubin (NEGATIVE) Urine Urobilinogen (0.2-1.0) mg/dL Ur Leukocyte Esterase (Negative) Mikel/uL Urine WBC (Auto) (0-5) /hpf Urine RBC (Auto) (0-3) /hpf Laboratory Results - last 24 hr 05/25/18 05/25/18 05/25/18 14:53 17:46 19:45 WBC RBC Hgb Hct MCV MCH MCHC RDW Plt Count MPV Neut % (Auto) Lymph % (Auto) [place] % (Auto) Eos % (Auto) Baso % (Auto) Neut # (Auto) Lymph # (Auto) [place]ney # (Auto) Eos # (Auto) Baso # (Auto) APTT Puncture Site Lra pCO2 33 L pO2 470 H HCO3 27.3 ABG pH 7.50 H ABG Total CO2 26.7 ABG O2 Saturation 99.8 H ABG Base Excess 2.9 ABG Hemoglobin ABG Carboxyhemoglobin POC ABG HHb (Measured) ABG Methemoglobin [place] Test Pos ABG Potassium 3.1 L A-a O2 Difference 202.0 Respiratory Index 0.4 Hgb O2 Saturation Sodium 131.0 L Chloride 99.0 Glucose 189 H Lactate 3.5 H Vent Mode Prvc Mechanical Rate 20 FiO2 100.0 Tidal Volume 500 PEEP 5 Potassium Carbon Dioxide Anion Gap BUN Creatinine Est GFR ( Amer) Est GFR (Non-Af Amer) POC Glucose (mg/dL) 153 H Random Glucose Calcium Phosphorus Magnesium Total Bilirubin AST ALT Alkaline Phosphatase Troponin I 0.5920 H* Total Protein Albumin Globulin Albumin/Globulin Ratio TSH 3rd Generation Arterial Blood Potassium 3.1 L Urine Color Urine Clarity Urine pH Ur Specific [place] Urine Protein Urine Glucose (UA) Urine Ketones Urine Blood Urine Nitrate Urine Bilirubin Urine Urobilinogen Ur Leukocyte Esterase Urine WBC (Auto) Urine RBC (Auto) 05/25/18 05/25/18 05/25/18 20:20 21:11 21:11 WBC 10.8 RBC 4.66 Hgb 13.4 Hct 39.2 MCV 84.1 MCH 28.8 MCHC 34.2 RDW 14.2 Plt Count 355 MPV 7.6 Neut % (Auto) 77.5 H Lymph % (Auto) 15.8 L [place] % (Auto) 5.4 Eos % (Auto) 0.6 Baso % (Auto) 0.7 Neut # (Auto) 8.4 H Lymph # (Auto) 1.7 Finney # (Auto) 0.6 Eos # (Auto) 0.1 Baso # (Auto) 0.1 APTT Puncture Site pCO2 pO2 HCO3 ABG pH ABG Total CO2 ABG O2 Saturation ABG Base Excess ABG Hemoglobin ABG Carboxyhemoglobin POC ABG HHb (Measured) ABG Methemoglobin Garfield Test ABG Potassium A-a O2 Difference Respiratory Index Hgb O2 Saturation Sodium 130 L Chloride 87 L Glucose Lactate Vent Mode Mechanical Rate FiO2 Tidal Volume PEEP Potassium 3.6 Carbon Dioxide 29 Anion Gap 18 BUN 9 Creatinine 0.5 L Est GFR ( Amer) > 60 Est GFR (Non-Af Amer) > 60 POC Glucose (mg/dL) 186 H Random Glucose 218 H Calcium 9.7 Phosphorus 3.5 Magnesium 2.3 Total Bilirubin 1.0 AST 76 H D ALT 30 Alkaline Phosphatase 85 Troponin I 0.6090 H* Total Protein 7.1 Albumin 3.9 Globulin 3.3 Albumin/Globulin Ratio 1.2 TSH 3rd Generation 2.93 Arterial Blood Potassium Urine Color Urine Clarity Urine pH Ur Specific [place] Urine Protein Urine Glucose (UA) Urine Ketones Urine Blood Urine Nitrate Urine Bilirubin Urine Urobilinogen Ur Leukocyte Esterase Urine WBC (Auto) Urine RBC (Auto) 05/25/18 05/26/18 05/26/18 23:21 05:21 05:56 WBC 10.7 RBC 4.25 Hgb 12.1 Hct 35.6 MCV 83.8 MCH 28.5 MCHC 34.0 RDW 13.8 Plt Count 316 MPV 7.6 Neut % (Auto) 63.4 Lymph % (Auto) 26.5 [place] % (Auto) 7.4 Eos % (Auto) 1.9 Baso % (Auto) 0.8 Neut # (Auto) 6.8 Lymph # (Auto) 2.8 [place] # (Auto) 0.8 Eos # (Auto) 0.2 Baso # (Auto) 0.1 APTT Puncture Site Lb pCO2 22 L pO2 485 H HCO3 23.5 ABG pH 7.55 H ABG Total CO2 19.9 L ABG O2 Saturation 99.8 H ABG Base Excess -1.9 ABG Hemoglobin 10.3 L ABG Carboxyhemoglobin 1.2 POC ABG HHb (Measured) 0.2 ABG Methemoglobin 1.6 [place] Test Na ABG Potassium A-a O2 Difference 201.0 Respiratory Index 0.4 Hgb O2 Saturation 97.0 Sodium Chloride Glucose Lactate Vent Mode Prvc Mechanical Rate 20 FiO2 100.0 Tidal Volume 500 PEEP 5 Potassium Carbon Dioxide Anion Gap BUN Creatinine Est GFR ( Amer) Est GFR (Non-Af Amer) POC Glucose (mg/dL) 148 H Random Glucose Calcium Phosphorus Magnesium Total Bilirubin AST ALT Alkaline Phosphatase Troponin I Total Protein Albumin Globulin Albumin/Globulin Ratio TSH 3rd Generation Arterial Blood Potassium Urine Color Urine Clarity Urine pH Ur Specific [place] Urine Protein Urine Glucose (UA) Urine Ketones Urine Blood Urine Nitrate Urine Bilirubin Urine Urobilinogen Ur Leukocyte Esterase Urine WBC (Auto) Urine RBC (Auto) 05/26/18 05/26/18 05/26/18 05:56 05:56 06:39 WBC RBC Hgb Hct MCV MCH MCHC RDW Plt Count MPV Neut % (Auto) Lymph % (Auto) [place] % (Auto) Eos % (Auto) Baso % (Auto) Neut # (Auto) Lymph # (Auto) [place] # (Auto) Eos # (Auto) Baso # (Auto) APTT 56 H D Puncture Site pCO2 pO2 HCO3 ABG pH ABG Total CO2 ABG O2 Saturation ABG Base Excess ABG Hemoglobin ABG Carboxyhemoglobin POC ABG HHb (Measured) ABG Methemoglobin [place] Test ABG Potassium A-a O2 Difference Respiratory Index Hgb O2 Saturation Sodium 132 Chloride 100 Glucose Lactate Vent Mode Mechanical Rate FiO2 Tidal Volume PEEP Potassium 3.9 Carbon Dioxide 23 Anion Gap 13 BUN 9 Creatinine 0.5 L Est GFR ( Amer) > 60 Est GFR (Non-Af Amer) > 60 POC Glucose (mg/dL) 144 H Random Glucose 165 H Calcium 8.7 Phosphorus 2.0 L Magnesium 1.9 Total Bilirubin 1.1 AST 84 H ALT 50 Alkaline Phosphatase 74 Troponin I Total Protein 5.8 L Albumin 3.1 L D Globulin 2.7 Albumin/Globulin Ratio 1.1 TSH 3rd Generation 2.36 Arterial Blood Potassium Urine Color Urine Clarity Urine pH Ur Specific [place] Urine Protein Urine Glucose (UA) Urine Ketones Urine Blood Urine Nitrate Urine Bilirubin Urine Urobilinogen Ur Leukocyte Esterase Urine WBC (Auto) Urine RBC (Auto) 05/26/18 08:27 WBC RBC Hgb Hct MCV MCH MCHC RDW Plt Count MPV Neut % (Auto) Lymph % (Auto) [place] % (Auto) Eos % (Auto) Baso % (Auto) Neut # (Auto) Lymph # (Auto) [place] # (Auto) Eos # (Auto) Baso # (Auto) APTT Puncture Site pCO2 pO2 HCO3 ABG pH ABG Total CO2 ABG O2 Saturation ABG Base Excess ABG Hemoglobin ABG Carboxyhemoglobin POC ABG HHb (Measured) ABG Methemoglobin [place] Test ABG Potassium A-a O2 Difference Respiratory Index Hgb O2 Saturation Sodium Chloride Glucose Lactate Vent Mode Mechanical Rate FiO2 Tidal Volume PEEP Potassium Carbon Dioxide Anion Gap BUN Creatinine Est GFR ( Amer) Est GFR (Non-Af Amer) POC Glucose (mg/dL) Random Glucose Calcium Phosphorus Magnesium Total Bilirubin AST ALT Alkaline Phosphatase Troponin I Total Protein Albumin Globulin Albumin/Globulin Ratio TSH 3rd Generation Arterial Blood Potassium Urine Color Yellow Urine Clarity Clear Urine pH 7.0 Ur Specific [place] 1.028 Urine Protein 2+ H Urine Glucose (UA) Normal Urine Ketones Trace Urine Blood Negative Urine Nitrate Negative Urine Bilirubin Negative Urine Urobilinogen Normal Ur Leukocyte Esterase Neg Urine WBC (Auto) 1 Urine RBC (Auto) 1 Radiology Impressions: Radiology Impressions Chest X-Ray 05/25/18 11:49 IMPRESSION: No interval acute cardiopulmonary pathology suspect. Cardiomegaly and minimal chronic pulmonary venous congestion inferred. Atherosclerotic vascular disease. Bilateral shoulder arthrosis as detailed above. Head/Neck CTA 05/25/18 11:52 IMPRESSION: Mild partially calcified atherosclerotic plaque changes seen both carotid bifurcations and proximal internal carotid arteries with no evidence of occlusion significant stenosis or dissection. Mild calcified plaque changes also noted both cavernous carotid arteries and distal vertebral arteries (intradural segments). The intra cerebral vasculature is unremarkable. No evidence of large aneurysm nor vascular malformation. Hyperdense nodules right lobe thyroid gland with few tiny calcifications. Recommend follow-up thyroid ultrasound. CT Dissection 05/25/18 12:12 Impression: No evidence of thoracic or abdominal aorta dissection or aneurysmal dilatation. Atherosclerotic calcifications and mural plaque evident. Dense coronary artery calcifications. Pancreatic duct appears markedly dilated measuring approximately 1.3 cm in diameter as well as ectatic. 1 cm hypodense focus at the uncinate process measures approximately 5 Hounsfield units consistent with cyst. Differential diagnosis includes small cystic neoplasm versus sequela of prior pancreatitis (dilated side duct radicles or tiny pseudocyst). Atrophic pancreas. Recommend clinical correlation including prior outside imaging. If indicated, follow-up pancreatic protocol CT or MRI may be considered for further assessment. Hypoattenuation of the liver compatible with hepatic steatosis. Dilated common bile duct in the setting of cholecystectomy. T8, T11, T12, and L1 compression fracture deformities. MRI may be considered for further evaluation if indicated. Visualized portions of the inferior thyroid gland: 1.2 cm hypodense nodule at the right lower pole. Additional tiny hypodensities within visualized bilateral lower thyroid poles. Follow-up outpatient thyroid ultrasound may be considered for further assessment if indicated. Additional findings as above. Head CT 05/25/18 19:40 IMPRESSION: 1. 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 2. Loss of triplett-white matter differentiation likely related to cerebral edema. Chest X-Ray 05/25/18 19:47 IMPRESSION: Endotracheal tube terminates 1.8 cm proximal to the britton. No acute findings. Chest X-Ray 05/26/18 07:00 IMPRESSION: Stable position of endotracheal tube. No significant interval change. EKG/Cardiology Studies: Cardiology / EKG Studies 05/25/18 19:21 EKG [ELECTROCARDIOGRAM] Stat Comment: Mode Of Transportation: Reason For Exam: eval change in rhythm Attending/Attestation - Attestation I have personally seen and examined this patient.: Yes I have fully participated in the care of the patient.: Yes I have reviewed all pertinent clinical information: Yes Notes (Text): 05/26/18 14:28 I have seen and examined the patient. Medical records, lab studies, and imaging were reviewed by me and a management plan was formulated on multidisciplinary rounds with resident Dr. Salmeron. I agree with their documented assessment and plan. After discussing with the family, it has been decided to make the patient DNI/DNR and terminally extubate. Critical Care Time 35 minutes. Multi-disciplinary rounds were performed with house staff, nursing, speech therapy, respiratory therapy, pharmacy and nutrition with integrated input from the primary team/attending and other consulting services. The documented time is cumulative and includes review of patient data/exams/labs/chart review and examination of the patient on rounds and throughout the day; time is exclusive of any procedures or teaching time.
--- NOTE | 2018-05-26 11:13 | CP.PCM.PN ---
<Caroline Hamilton - Last Filed: 05/26/18 11:08> Subjective - Date & Time of Evaluation Date of Evaluation: 05/26/18 Time of Evaluation: 11:08 - Subjective Subjective: Cardiology Follow Up Patient was seen and examined at bedside. DNR/DNI. Patient extubated 10:15am. Objective - Vital Signs/Intake and Output Vital Signs (last 24 hours): Temp Pulse Resp BP Pulse Ox 98.4 F 44 L 20 108/48 L 91 L 05/25/18 20:00 05/26/18 06:54 05/26/18 06:54 05/26/18 06:54 05/26/18 00:45 Intake and Output: 05/26/18 05/26/18 06:59 18:59 Intake Total 3235.20 79.6 Balance 3235.20 79.6 - Medications Medications: Current Medications Fentanyl Citrate 2,500 mcg/ (Sodium Chloride) 250 mls @ 12.92 mls/hr IV .[id number] [facility]; Protocol Last Admin: 05/25/18 23:56 Dose: 1 mcg/kg/hr, 6.46 mls/hr - Labs Labs: 05/26/18 05:56 05/26/18 05:56 PT 11.6 SECONDS (9.7-12.2) 05/25/18 11:55 INR 1.1 05/25/18 11:55 APTT 56 SECONDS (21-34) H D 05/26/18 05:56 - Constitutional Appears: Chronically Ill - Head Exam Head Exam: NORMAL INSPECTION, NORMOCEPHALIC - Eye Exam Eye Exam: Normal appearance - ENT Exam ENT Exam: Mucous Membranes Dry - Respiratory Exam Respiratory Exam: Decreased Breath Sounds - Cardiovascular Exam Cardiovascular Exam: +S1, +S2 - GI/Abdominal Exam GI & Abdominal Exam: Soft, Normal Bowel Sounds. absent: Distended, Tenderness - Extremities Exam Extremities Exam: Normal Inspection. absent: Pedal Edema, Tenderness - Skin Skin Exam: Normal Color. absent: Warm Assessment and Plan - Assessment and Plan (Free Text) Plan: S/P VTACH - 1 round CPR with 1 shock delivered - Patient was intubated and sedated - Family refused any invasive interventions, refused cardiac catherizatin, medical management only Management: - Patient DNR/ DNI - Extubated 10:15, on fentanyl drip, comfort care measures only Case discussed with Caroline Pickens DO, PGY2 <Galdino Aguilar - Last Filed: 05/26/18 19:53> Objective - Vital Signs/Intake and Output Vital Signs (last 24 hours): Temp Pulse Resp BP Pulse Ox 98.0 F 43 L 21 144/47 L 100 05/26/18 16:00 05/26/18 19:00 05/26/18 19:00 05/26/18 18:55 05/26/18 19:00 Intake and Output: 05/26/18 05/27/18 18:59 06:59 Intake Total 317.5 Balance 317.5 - Medications Medications: Current Medications Fentanyl Citrate 2,500 mcg/ (Sodium Chloride) 250 mls @ 12.92 mls/hr IV .[id number] [facility]; Protocol Last Admin: 05/25/18 23:56 Dose: 1 mcg/kg/hr, 6.46 mls/hr - Labs Labs: 05/26/18 05:56 05/26/18 05:56 PT 11.6 SECONDS (9.7-12.2) 05/25/18 11:55 INR 1.1 05/25/18 11:55 APTT 56 SECONDS (21-34) H D 05/26/18 05:56 Assessment and Plan - Assessment and Plan (Free Text) Plan: Patient seen and evaluated personally by me. Plan of care d/w the medical detailist and as documented
--- NOTE | 2018-05-26 12:09 | CP.PCM.CON ---
History of Present Illness - History of Present Illness History of Present Illness: Palliative consult requested by Doctor Faviola for End of life care discussion Patient is a 81 yo female admitted from home, where she was found by her grandson, on the toilet, slumped to one side. Patient was with slurred speech, b ut did complain of chest pain. Just earlier the same morning, patient was at her norm. Upon arrival to ED patient complaind again of chest pains. Cardiology consult was called. troponins X 2 were positive. While further diagnostic studies were performed, patient underwent acute cardiac distress with V Tach and SBP > 220. Patient was emergency intubated , placed on Heparin drip and transfered to ICU. PMH: HTN, asthma, DM Soc. Hx: lives at home with family Fam. Hx: denied Review of Systems - Review of Systems All systems: reviewed and no additional remarkable complaints except Review of Systems: ROS unobtainable from the patient due to lethargy and respiratory difficulties. ROS obtained from daughter at bed side. per daughter, patient was just removed from life support, as family requested promotion of natural . Past Patient History - Past Medical History & Family History Past Medical History?: Yes - Past Social History Smoking Status: Never Smoked - CARDIAC Hx Hypertension: Yes - PULMONARY Hx Asthma: Yes - NEUROLOGICAL Hx Neurological Disorder: No - HEENT Hx HEENT Problems: No - RENAL Hx Chronic Kidney Disease: No - ENDOCRINE/METABOLIC Hx Diabetes Mellitus Type 2: Yes - HEMATOLOGICAL/ONCOLOGICAL Hx Blood Disorders: No - INTEGUMENTARY Hx Dermatological Problems: No - MUSCULOSKELETAL/RHEUMATOLOGICAL Hx Musculoskeletal Disorders: No - GASTROINTESTINAL Hx Gastrointestinal Disorders: No - GENITOURINARY/GYNECOLOGICAL Hx Genitourinary Disorders: No - PSYCHIATRIC Hx Substance Use: No - SURGICAL HISTORY Hx Surgeries: Yes Other/Comment: Surgical scar to abdomen - ANESTHESIA Hx Malignant Hyperthermia: No Meds Allergies/Adverse Reactions: Allergies Allergy/AdvReac Type Severity Reaction Status Date / Time No Known Allergies Allergy Verified 05/25/18 11:48 - Medications Medications: Current Medications Fentanyl Citrate 2,500 mcg/ (Sodium Chloride) 250 mls @ 12.92 mls/hr IV .[id number] [facility]; Protocol Last Admin: 05/25/18 23:56 Dose: 1 mcg/kg/hr, 6.46 mls/hr Physical Exam - Constitutional Appears: In Acute Distress - Head Exam Head Exam: ATRAUMATIC, NORMAL INSPECTION, NORMOCEPHALIC - Eye Exam Eye Exam: EOMI, Normal appearance, PERRL Pupil Exam: NORMAL ACCOMODATION, PERRL - ENT Exam ENT Exam: Mucous Membranes Moist, Normal Exam - Neck Exam Neck exam: Positive for: Normal Inspection - Respiratory Exam Respiratory Exam: Accessory Muscle Use, Decreased Breath Sounds - Cardiovascular Exam Cardiovascular Exam: Bradycardia - GI/Abdominal Exam GI & Abdominal Exam: Normal Bowel Sounds, Soft - Rectal Exam Rectal Exam: Deferred - Extremities Exam Extremities exam: Positive for: normal inspection - Back Exam Back exam: NORMAL INSPECTION - Neurological Exam Neurological exam: Alert - Psychiatric Exam Psychiatric exam: Depressed, Flat Affect - Skin Skin Exam: Dry, Intact, Normal Color, Warm Results - Vital Signs Recent Vital Signs: Last Vital Signs Temp 98.4 F 05/25/18 20:00 Pulse 42 L 05/26/18 11:23 Resp 21 05/26/18 11:23 BP 128/48 L 05/26/18 11:25 Pulse Ox 91 L 05/26/18 00:45 - Labs Result Diagrams: 05/26/18 05:56 05/26/18 05:56 Labs: Laboratory Results - last 24 hr 05/25/18 05/25/18 05/25/18 11:41 11:55 11:55 WBC RBC Hgb Hct MCV MCH MCHC RDW Plt Count MPV Neut % (Auto) Lymph % (Auto) [place] % (Auto) Eos % (Auto) Baso % (Auto) Neut # (Auto) Lymph # (Auto) [place] # (Auto) Eos # (Auto) Baso # (Auto) PT 11.6 INR 1.1 APTT 34 Puncture Site pCO2 pO2 HCO3 ABG pH ABG Total CO2 ABG O2 Saturation ABG Base Excess ABG Hemoglobin ABG Carboxyhemoglobin POC ABG HHb (Measured) ABG Methemoglobin [place] Test ABG Potassium A-a O2 Difference Respiratory Index Hgb O2 Saturation Glucose Lactate Vent Mode Mechanical Rate FiO2 Tidal Volume PEEP Sodium 133 Potassium 3.5 L Chloride 89 L Carbon Dioxide 32 H Anion Gap 15 BUN 8 Creatinine 0.4 L Est GFR ( Amer) > 60 Est GFR (Non-Af Amer) > 60 POC Glucose (mg/dL) 198 H Random Glucose 195 H Hemoglobin A1c Calcium 10.1 Phosphorus Magnesium Total Bilirubin 0.5 AST 26 ALT 23 Alkaline Phosphatase 92 Troponin I 0.5910 H* Total Protein 7.7 Albumin 4.2 Globulin 3.5 Albumin/Globulin Ratio 1.2 Triglycerides 208 H Cholesterol 141 LDL Cholesterol Direct 74 HDL Cholesterol 47 TSH 3rd Generation Arterial Blood Potassium Urine Color Urine Clarity Urine pH Ur Specific [place] Urine Protein Urine Glucose (UA) Urine Ketones Urine Blood Urine Nitrate Urine Bilirubin Urine Urobilinogen Ur Leukocyte Esterase Urine WBC (Auto) Urine RBC (Auto) Blood Type Antibody Screen 05/25/18 05/25/18 05/25/18 11:55 11:55 14:53 WBC RBC Hgb Hct MCV MCH MCHC RDW Plt Count MPV Neut % (Auto) Lymph % (Auto) [place] % (Auto) Eos % (Auto) Baso % (Auto) Neut # (Auto) Lymph # (Auto) [place] # (Auto) Eos # (Auto) Baso # (Auto) PT INR APTT Puncture Site pCO2 pO2 HCO3 ABG pH ABG Total CO2 ABG O2 Saturation ABG Base Excess ABG Hemoglobin ABG Carboxyhemoglobin POC ABG HHb (Measured) ABG Methemoglobin [place] Test ABG Potassium A-a O2 Difference Respiratory Index Hgb O2 Saturation Glucose Lactate Vent Mode Mechanical Rate FiO2 Tidal Volume PEEP Sodium Potassium Chloride Carbon Dioxide Anion Gap BUN Creatinine Est GFR ( Amer) Est GFR (Non-Af Amer) POC Glucose (mg/dL) Random Glucose Hemoglobin A1c 7.8 H Calcium Phosphorus Magnesium Total Bilirubin AST ALT Alkaline Phosphatase Troponin I 0.5920 H* Total Protein Albumin Globulin Albumin/Globulin Ratio Triglycerides Cholesterol LDL Cholesterol Direct HDL Cholesterol TSH 3rd Generation Arterial Blood Potassium Urine Color Urine Clarity Urine pH Ur Specific [place] Urine Protein Urine Glucose (UA) Urine Ketones Urine Blood Urine Nitrate Urine Bilirubin Urine Urobilinogen Ur Leukocyte Esterase Urine WBC (Auto) Urine RBC (Auto) Blood Type B POSITIVE Antibody Screen Negative 05/25/18 05/25/18 05/25/18 17:46 19:45 20:20 WBC RBC Hgb Hct MCV MCH MCHC RDW Plt Count MPV Neut % (Auto) Lymph % (Auto) [place] % (Auto) Eos % (Auto) Baso % (Auto) Neut # (Auto) Lymph # (Auto) [place] # (Auto) Eos # (Auto) Baso # (Auto) PT INR APTT Puncture Site Lra pCO2 33 L pO2 470 H HCO3 27.3 ABG pH 7.50 H ABG Total CO2 26.7 ABG O2 Saturation 99.8 H ABG Base Excess 2.9 ABG Hemoglobin ABG Carboxyhemoglobin POC ABG HHb (Measured) ABG Methemoglobin [place] Test Pos ABG Potassium 3.1 L A-a O2 Difference 202.0 Respiratory Index 0.4 Hgb O2 Saturation Glucose 189 H Lactate 3.5 H Vent Mode Prvc Mechanical Rate 20 FiO2 100.0 Tidal Volume 500 PEEP 5 Sodium 131.0 L Potassium Chloride 99.0 Carbon Dioxide Anion Gap BUN Creatinine Est GFR ( Amer) Est GFR (Non-Af Amer) POC Glucose (mg/dL) 153 H 186 H Random Glucose Hemoglobin A1c Calcium Phosphorus Magnesium Total Bilirubin AST ALT Alkaline Phosphatase Troponin I Total Protein Albumin Globulin Albumin/Globulin Ratio Triglycerides Cholesterol LDL Cholesterol Direct HDL Cholesterol TSH 3rd Generation Arterial Blood Potassium 3.1 L Urine Color Urine Clarity Urine pH Ur Specific [place] Urine Protein Urine Glucose (UA) Urine Ketones Urine Blood Urine Nitrate Urine Bilirubin Urine Urobilinogen Ur Leukocyte Esterase Urine WBC (Auto) Urine RBC (Auto) Blood Type Antibody Screen 05/25/18 05/25/18 05/25/18 21:11 21:11 23:21 WBC 10.8 RBC 4.66 Hgb 13.4 Hct 39.2 MCV 84.1 MCH 28.8 MCHC 34.2 RDW 14.2 Plt Count 355 MPV 7.6 Neut % (Auto) 77.5 H Lymph % (Auto) 15.8 L [place] % (Auto) 5.4 Eos % (Auto) 0.6 Baso % (Auto) 0.7 Neut # (Auto) 8.4 H Lymph # (Auto) 1.7 [place] # (Auto) 0.6 Eos # (Auto) 0.1 Baso # (Auto) 0.1 PT INR APTT Puncture Site pCO2 pO2 HCO3 ABG pH ABG Total CO2 ABG O2 Saturation ABG Base Excess ABG Hemoglobin ABG Carboxyhemoglobin POC ABG HHb (Measured) ABG Methemoglobin [place] Test ABG Potassium A-a O2 Difference Respiratory Index Hgb O2 Saturation Glucose Lactate Vent Mode Mechanical Rate FiO2 Tidal Volume PEEP Sodium 130 L Potassium 3.6 Chloride 87 L Carbon Dioxide 29 Anion Gap 18 BUN 9 Creatinine 0.5 L Est GFR ( Amer) > 60 Est GFR (Non-Af Amer) > 60 POC Glucose (mg/dL) 148 H Random Glucose 218 H Hemoglobin A1c Calcium 9.7 Phosphorus 3.5 Magnesium 2.3 Total Bilirubin 1.0 AST 76 H D ALT 30 Alkaline Phosphatase 85 Troponin I 0.6090 H* Total Protein 7.1 Albumin 3.9 Globulin 3.3 Albumin/Globulin Ratio 1.2 Triglycerides Cholesterol LDL Cholesterol Direct HDL Cholesterol TSH 3rd Generation 2.93 Arterial Blood Potassium Urine Color Urine Clarity Urine pH Ur Specific [place] Urine Protein Urine Glucose (UA) Urine Ketones Urine Blood Urine Nitrate Urine Bilirubin Urine Urobilinogen Ur Leukocyte Esterase Urine WBC (Auto) Urine RBC (Auto) Blood Type Antibody Screen 05/26/18 05/26/18 05/26/18 05:21 05:56 05:56 WBC 10.7 RBC 4.25 Hgb 12.1 Hct 35.6 MCV 83.8 MCH 28.5 MCHC 34.0 RDW 13.8 Plt Count 316 MPV 7.6 Neut % (Auto) 63.4 Lymph % (Auto) 26.5 [place] % (Auto) 7.4 Eos % (Auto) 1.9 Baso % (Auto) 0.8 Neut # (Auto) 6.8 Lymph # (Auto) 2.8 [place] # (Auto) 0.8 Eos # (Auto) 0.2 Baso # (Auto) 0.1 PT INR APTT Puncture Site Lb pCO2 22 L pO2 485 H HCO3 23.5 ABG pH 7.55 H ABG Total CO2 19.9 L ABG O2 Saturation 99.8 H ABG Base Excess -1.9 ABG Hemoglobin 10.3 L ABG Carboxyhemoglobin 1.2 POC ABG HHb (Measured) 0.2 ABG Methemoglobin 1.6 [place] Test Na ABG Potassium A-a O2 Difference 201.0 Respiratory Index 0.4 Hgb O2 Saturation 97.0 Glucose Lactate Vent Mode Prvc Mechanical Rate 20 FiO2 100.0 Tidal Volume 500 PEEP 5 Sodium 132 Potassium 3.9 Chloride 100 Carbon Dioxide 23 Anion Gap 13 BUN 9 Creatinine 0.5 L Est GFR ( Amer) > 60 Est GFR (Non-Af Amer) > 60 POC Glucose (mg/dL) Random Glucose 165 H Hemoglobin A1c Calcium 8.7 Phosphorus 2.0 L Magnesium 1.9 Total Bilirubin 1.1 AST 84 H ALT 50 Alkaline Phosphatase 74 Troponin I Total Protein 5.8 L Albumin 3.1 L D Globulin 2.7 Albumin/Globulin Ratio 1.1 Triglycerides Cholesterol LDL Cholesterol Direct HDL Cholesterol TSH 3rd Generation 2.36 Arterial Blood Potassium Urine Color Urine Clarity Urine pH Ur Specific [place] Urine Protein Urine Glucose (UA) Urine Ketones Urine Blood Urine Nitrate Urine Bilirubin Urine Urobilinogen Ur Leukocyte Esterase Urine WBC (Auto) Urine RBC (Auto) Blood Type Antibody Screen 05/26/18 05/26/18 05/26/18 05:56 06:39 08:27 WBC RBC Hgb Hct MCV MCH MCHC RDW Plt Count MPV Neut % (Auto) Lymph % (Auto) [place] % (Auto) Eos % (Auto) Baso % (Auto) Neut # (Auto) Lymph # (Auto) [place] # (Auto) Eos # (Auto) Baso # (Auto) PT INR APTT 56 H D Puncture Site pCO2 pO2 HCO3 ABG pH ABG Total CO2 ABG O2 Saturation ABG Base Excess ABG Hemoglobin ABG Carboxyhemoglobin POC ABG HHb (Measured) ABG Methemoglobin [place] Test ABG Potassium A-a O2 Difference Respiratory Index Hgb O2 Saturation Glucose Lactate Vent Mode Mechanical Rate FiO2 Tidal Volume PEEP Sodium Potassium Chloride Carbon Dioxide Anion Gap BUN Creatinine Est GFR ( Amer) Est GFR (Non-Af Amer) POC Glucose (mg/dL) 144 H Random Glucose Hemoglobin A1c Calcium Phosphorus Magnesium Total Bilirubin AST ALT Alkaline Phosphatase Troponin I Total Protein Albumin Globulin Albumin/Globulin Ratio Triglycerides Cholesterol LDL Cholesterol Direct HDL Cholesterol TSH 3rd Generation Arterial Blood Potassium Urine Color Yellow Urine Clarity Clear Urine pH 7.0 Ur Specific [place] 1.028 Urine Protein 2+ H Urine Glucose (UA) Normal Urine Ketones Trace Urine Blood Negative Urine Nitrate Negative Urine Bilirubin Negative Urine Urobilinogen Normal Ur Leukocyte Esterase Neg Urine WBC (Auto) 1 Urine RBC (Auto) 1 Blood Type Antibody Screen Assessment & Plan - Assessment and Plan (Free Text) Assessment: Palliative consult DNR, Advance directive on chart, PPS 10% I reviewed Medical records, all diagnostic studies, examined patient in the bed and discussed end of life care with family at bed side Patient is alert, lethargic, just few minutes after extubation. Breathing is shallow. NC in place. Patient reacts to tactile stimuli, but does not open her eyes.BP is low 108/48, HR 44. Large family at bed side. I spoke to one of the daughters and questioned her understanding and expectations of care.She said, that her mother would never want to have her life prolong by life support. few years ago, one of the family members was on life support X 3 months and the whole family was very stressed out but that event. At that time patient verbalized her wishes against same care if she should ever need it. I further discussed that patient may go to another cardiac arrest . Family sta betzaida being aware of it and wanting her to go peacefully if that happens. They were very clear against re intubation or CPR. CHRIS introduced and lucas signed DNR/DNI. I offered support and made my self available if the family should want to talk further more. Impression * S/P [place] * S/P terminal extubation * Mild respiratory distress * Lethargy * Patient is expected to , family is supporting natural * DNR/DNI signed Suggestion * Control symptoms * Morphine for respiratory distress * promote natural * Support family * Agree with DNR/DNI Palliative care will sign off at this time End of life care discussion 46 min
--- NOTE | 2018-05-26 15:26 | CP.PCM.PCO ---
Physician Communication Note - Physician Communication Note Physician Communication Note: pt terminally extubated; please reconsult neuro prn. thank you.
--- NOTE | 2018-05-26 23:48 | CP.PCM.PN ---
Subjective - Subjective Subjective: dictated Objective - Vital Signs/Intake and Output Vital Signs (last 24 hours): Temp Pulse Resp BP Pulse Ox 98.3 F 44 L 24 151/43 H 100 05/26/18 20:00 05/26/18 23:00 05/26/18 23:00 05/26/18 22:55 05/26/18 23:00 Intake and Output: 05/26/18 05/27/18 18:59 06:59 Intake Total 317.5 Balance 317.5 - Medications Medications: Current Medications Fentanyl Citrate 2,500 mcg/ (Sodium Chloride) 250 mls @ 12.92 mls/hr IV .[id number] [facility]; Protocol Last Admin: 05/25/18 23:56 Dose: 1 mcg/kg/hr, 6.46 mls/hr - Labs Labs: 05/26/18 05:56 05/26/18 05:56 PT 11.6 SECONDS (9.7-12.2) 05/25/18 11:55 INR 1.1 05/25/18 11:55 APTT 56 SECONDS (21-34) H D 05/26/18 05:56
--- NOTE | 2018-05-27 02:49 | PN ---
DATE: 05/26/2018 SUBJECTIVE: The patient was terminally extubated as per family's request, and the patient is on oxygen. She is calm. She is not in distress. PHYSICAL EXAMINATION: VITAL SIGNS: Blood pressure 151/43, pulse 44, respiratory rate 24, and temperature 98. LUNGS: Bilateral rhonchi. CARDIOVASCULAR SYSTEM: S1 and S2, plus S4 positive. ASSESSMENT: 1. Status post cardiac arrest. 2. Bradycardia. 3. Hypertension. PLAN: Continue terminal care. Luis Iverson MD
--- NOTE | 2018-05-27 04:37 | HP ---
CHIEF COMPLIANT: Chest pain. HISTORY OF PRESENT ILLNESS: This is an 81-year-old female with history of hypertension and hyperlipidemia who was brought into ambulance because of suspicion of a stroke. According to grandson, the patient woke up and was at the bed this morning around 10 a.m. The patient was found on the toilet slum to the side with slurring of the speech. She also complained of chest pain at that time. At the time of arrival in the ER, she was complaining of chest pain and slurring of speech. The patient was anxious, restless and she could not answer questions appropriately. At the same time, the patient was confused as well all she complained with her chest hurts. There was no obvious weakness in the emergency room upon arrival. According to family upon further questioning around 8 a.m., she was seen and she was fine. Around 10 a.m., son found the patient in the bathroom. She was leaned toward the right side with slurring of speech, and she could not walk. Colleen picked her up and took her to the bedroom, and she was fighting towards her chest pain. No further details obtainable. The patient was in ICU. Henry love was called because of loss of pulse. The patient was resuscitated and intubated. Right now, the patient is on ventilator. There were no advanced structures available. PAST MEDICAL HISTORY: Diabetes, hypertension, hyperlipidemia, arthritis, and asthma. SOCIAL HISTORY: Nonsmoker, non-Et[employer] user. CURRENT MEDICATIONS: She is on Lopressor, omeprazole, Ditropan, metformin, and Hyzaar. PHYSICAL EXAMINATION: GENERAL: An elderly female who is now on ventilator when I examined her. She is awake now and she is with no apparent involuntary movements. VITAL SIGNS: The patient's blood pressure post-resuscitation is now 100/70, pulse 88, respiratory rate 20, and afebrile. SKIN: Senile turgor. No bruises. No purpura. HEENT: Atraumatic and normocephalic. Unable to detect extraocular movements. Orally intubated. NECK: Supple. No JVD. No lymph nodes. No thyromegaly. No carotid bruit. CHEST WALL: Bilateral symmetrical expansion. LUNGS: Bilateral transmitted breath sounds. CARDIOVASCULAR SYSTEM: S1 and S2 plus S4 positive. ABDOMEN: Soft, nontender. Bowel sounds are positive. EXTREMITIES: No clubbing, cyanosis, or edema. CENTRAL NERVOUS SYSTEM: The patient is on ventilator. ASSESSMENT: 1. Rule out cardiovascular accident. 2. Rule out acute myocardial infarction. 3. Status post cardiac arrest. The patient is resuscitated. 4. Hypertension. PLAN: Admit. The patient will be DNR. We will monitor the patient and possible discontinuation of life support in a.m. Luis Iverson MD
--- NOTE | 2018-05-27 19:13 | CP.PCM.PN ---
Subjective - Subjective Subjective: dictated Objective - Vital Signs/Intake and Output Vital Signs (last 24 hours): Temp Pulse Resp BP Pulse Ox 99.5 F 49 L 26 H 159/41 H 66 L 05/27/18 16:00 05/27/18 18:00 05/27/18 18:00 05/27/18 17:55 05/27/18 18:00 Intake and Output: 05/27/18 05/28/18 18:59 06:59 Intake Total 78.0 Output Total 200 Balance -122.0 - Medications Medications: Current Medications Fentanyl Citrate 2,500 mcg/ (Sodium Chloride) 250 mls @ 12.92 mls/hr IV .[id number] [facility]; Protocol Last Admin: 05/27/18 12:30 Dose: 1 mcg/kg/hr, 6.46 mls/hr - Labs Labs: 05/26/18 05:56 05/26/18 05:56 PT 11.6 SECONDS (9.7-12.2) 05/25/18 11:55 INR 1.1 05/25/18 11:55 APTT 56 SECONDS (21-34) H D 05/26/18 05:56
--- NOTE | 2018-05-27 22:22 | PN ---
DATE: 05/27/2018 SUBJECTIVE: The patient has been terminally extubated. She is comfortable. She is sedated. The patient's family is refusing oxygen therapy. The patient is terminal. She is unresponsive. She is DNR/DNI. PHYSICAL EXAMINATION VITAL SIGNS: Blood pressure 159/41, pulse 49, respiratory rate 22, temperature 98. LUNGS: Bilateral rales and rhonchi. CARDIOVASCULAR SYSTEM: S1 and S2 regular, bradycardic. ABDOMEN: Soft. ASSESSMENT: 1. Respiratory failure, status post terminal extubation. 2. Cerebrovascular accident. 3. Hypertension. 4. Coronary artery disease. PLAN: Continue end-of-life care, supportive care. Monitor the patient. Luis Iverson MD
--- NOTE | 2018-05-28 13:15 | CP.PCM.PN ---
Subjective - Subjective Subjective: dictated Objective - Vital Signs/Intake and Output Vital Signs (last 24 hours): Temp Pulse Resp BP Pulse Ox 98.9 F 46 L 23 189/51 H 82 L 05/28/18 12:00 05/28/18 12:54 05/28/18 12:54 05/28/18 12:54 05/28/18 12:54 Intake and Output: 05/28/18 05/28/18 06:59 18:59 Intake Total 78 39.0 Output Total 200 Balance -122 39.0 - Medications Medications: Current Medications Fentanyl Citrate 2,500 mcg/ (Sodium Chloride) 250 mls @ 12.92 mls/hr IV .[id number] [facility]; Protocol Last Admin: 05/27/18 12:30 Dose: 1 mcg/kg/hr, 6.46 mls/hr - Labs Labs: 05/26/18 05:56 05/26/18 05:56 PT 11.6 SECONDS (9.7-12.2) 05/25/18 11:55 INR 1.1 05/25/18 11:55 APTT 56 SECONDS (21-34) H D 05/26/18 05:56
[2018-05-28 16:19] VITALS: BP 208/60; PULSE 48; RESP 25; O2SAT 84
[2018-05-28 16:20] VITALS: TEMP 98.4
--- NOTE | 2018-05-28 18:12 | CP.PCM.PRO ---
Pronouncement of Note - Clinical Findings Physical Exam: No Response Verbal/Painful Stimuli, Absent Peripheral Puls es{Carotid & Femoral}, Absent Heart & Breath Sounds, No Pupillary Light Reflex, No Corneal Reflex, Pupils Fixed & Dilated, Absence of Vital Signs - Pronouncement Time Time of Pronouncement of : 17:55 - Notifications Pronouncement Notifications: Family Notified, Atending Notified Ethologist Notified: No - Autopsy Autopsy Requested: No - [place] [id number]
--- NOTE | 2018-05-29 04:37 | DS ---
DISCHARGE DIAGNOSES: 1. Cerebrovascular accident. 2. Coronary artery disease. 3. Hypertension. 4. Hyperlipidemia. HISTORY OF PRESENT ILLNESS: This is an 81-year-old female with history of hypertension, hyperlipidemia who came in because of chest pain, dizziness and possibility of stroke. The patient was found to be side in the bathroom by her grandson. The patient was admitted to ICU. She was started on neuro watch, seizure, fall precaution and the patient developed respiratory and cardiopulmonary arrest and she was resuscitated. Subsequently, the patient's family requested for DNR/DNI and requested for terminal extubation. The patient was terminally extubated and subsequently the patient was treated conservatively with comfort measures only and the patient . PHYSICAL EXAMINATION: VITAL SIGNS: Before today, her blood pressure earlier on was 208/60, pulse 49, respiratory rate 24. LUNGS: Clear. CARDIOVASCULAR SYSTEM: S1 and S2, regular. ABDOMEN: Soft. ASSESSMENT AND PLAN: The patient . Family aware. Luis Iverson MD
--- NOTE | 2018-05-29 17:21 | CARD ---
APPROVED REPORT Date of service: 05/25/2018 EKG Measurement Heart [id number] <Conclusion> Sinus tachycardia with complete heart block and Wide QRS rhythm Right bundle branch block T wave abnormality, consider lateral ischemia Abnormal ECG
== END 2018-05-28 17:55 | DRG 64 ==
LOC: C.ER 11:38 → C.9I 14:35
PROVIDERS: ADMIT Internal Medicine; ATTEND Internal Medicine
PROC: 0BH17EZ Insertion of Endotracheal Airway into Trachea, Via Natural or Artificial Opening (ICD-10-PCS; principal; 2018-05-25)
PROC: 5A1945Z Respiratory Ventilation, 24-96 Consecutive Hours (ICD-10-PCS; 2018-05-25)
DX: I63.9 Cerebral infarction, unspecified (principal); J96.90 Respiratory failure, unspecified, unspecified whether with hypoxia or hypercapnia; G93.6 Cerebral edema; I21.4 Non-ST elevation (NSTEMI) myocardial infarction; I47.2 Ventricular tachycardia; M48.56XA Collapsed vertebra, not elsewhere classified, lumbar region, initial encounter for fracture; I46.9 Cardiac arrest, cause unspecified; I25.10 Atherosclerotic heart disease of native coronary artery without angina pectoris; I11.9 Hypertensive heart disease without heart failure; I51.7 Cardiomegaly; J45.909 Unspecified asthma, uncomplicated; E78.5 Hyperlipidemia, unspecified; E11.9 Type 2 diabetes mellitus without complications; Z51.5 Encounter for palliative care; Z66 Do not resuscitate; M19.90 Unspecified osteoarthritis, unspecified site